=== PATIENT | male | born 1945 | race Caucasian/White ===

== ENCOUNTER 2018-09-30 12:21 | Inpatient (IN) ==
[2018-09-30] MEDS ORDERED: NS 1,000 ML IV ONE ×5 (13:01→21:14)
[2018-09-30] MEDS: NS 1,000 ML IV ONE ×2 (13:06)
[2018-09-30 13:08] LABS: BASO# 0.02 X1000 (0.0-0.2); BASO% 0.2 % (0.0-0.8); EOS# 0.07 X1000 (0.0-0.7); EOS% 0.6 % (0.0-10.0); HEMATOCRIT 29.9 % (42.0-52.0); HEMOGLOBIN 10.3 g/dL (14.0-18.0); IMM GRAN# 0.06 X1000 (0.0-0.04); IMM GRAN% 0.5 % (0.0-0.5); LYMPH# 1.61 X1000 (1.2-3.4); LYMPH% 14.4 % (20.5-51.1); MCH 35.9 PG (27-31); MCHC 34.4 g/dL (33-37); MCV 104.2 FL (81-99); MONO# 0.91 X1000 (0.11-0.59); MONO% 8.2 % (1.7-9.3); MPV 12.1 FL (7.4-10.4); NEUT# 8.49 X1000 (1.4-6.5); NEUT% 76.1 % (42.2-75.2); PLT 135 X1000 (130-400); RBC 2.87 XMIL (4.7-6.1); RDW 21.8 % (11.5-14.5); WBC 11.16 X1000 (4.8-10.8)
[2018-09-30] MEDS ORDERED: NS 1,000 ML ONE (13:14)
[2018-09-30 13:20] LABS: HEMOGLOBIN A1C 6.1 % (4.8-6.0)
[2018-09-30 13:46] LABS: ALBUMIN 3.1 g/dL (3.5-5.0); CALCIUM 8.6 mg/dL (8.8-10.2); CREATININE 4.4 mg/dL (0.7-1.2); POTASSIUM 3.3 mmol/L (3.5-5.1); TOTAL BILIRUBIN 0.5 mg/dL (0.20-1.00); TOTAL PROTEIN 6.3 g/dL (6.3-8.3)
[2018-09-30] MEDS: ZOSYN 2.25 GM in NS 50 ML IV SCH ×2 (14:00→20:00)
[2018-09-30] MEDS: NS 1,000 ML IV SCH ×3 (14:00→23:00)
[2018-09-30] MEDS ORDERED: TYLENOL PO PRN ×2 (14:01→21:15)
[2018-09-30] MEDS: ZYVOX 600 MG/D5W 600 MG/300 ML IVPB IV SCH (14:15)
--- NOTE | 2018-09-30 14:50 | Diag Imaging Result Doc PS360 ---
EXAM: CHEST-PORTABLE 09/30/2018 HISTORY: sepsis TECHNIQUE: Erect AP portable at 1406 COMMENT: Compared to 06/27/2018 the opacity previously present in the left base has resolved. There may be COPD. There are sternotomy wires and there is a Port-A-Cath on the right. IMPRESSION: No evidence of acute disease. Electronically signed by Zeeshan Croft 09/30/2018 2:48 PM
[2018-09-30] MEDS ORDERED: DOPAMINE 800 MG/D5W 800 MG/500 ML IV.SOLN IV SCH (15:15)
[2018-09-30] MEDS: DUONEB (A & A) INH SCH ×3 (15:30→22:35)
--- NOTE | 2018-09-30 15:49 | HISTORY AND PHYSICAL ---
PRIMARY CARE PHYSICIAN: Dr. Agapito Mtz. CHIEF COMPLAINT: Elevated blood sugar, low blood pressure and palpitations that began this morning. HISTORY OF PRESENTING ILLNESS: This is a 73-year-old male who presents to [facility] with complaints of having an elevated blood sugar, low blood pressure and palpitations that began this morning. It is noted that he is a stage IV colon cancer patient followed by Dr. Grissom and is currently receiving chemotherapy. He apparently had a chest, abdomen and pelvis CT done outpatient on 09/26/2018 that showed COPD, pulmonary scarring, and pneumonia in the right lower lobe, calcifying liver masses consistent with treated metastasis. No new liver masses, constipation with rectal stool impaction, and a stable abdominal aortic aneurysm. He was unaware of these results today when he presented. He had a blood pressure of 64/31 with pulse of 109. His white blood cell count is 11.16. His BUN is 184 with a creatinine of 4.4, and glucose of 401. He says he is not diabetic. We checked a hemoglobin A1c and it was 6.1. He in the emergency room has been given 2 L of normal saline boluses, and is now receiving a liter at 125 mL an hour. His blood pressure remains low at 93/42 so he will be admitted to the intensive care unit for further evaluation and treatment. PAST MEDICAL HISTORY: Diabetes, CHF, COPD, hypertension, hyperlipidemia, renal disease, colon cancer stage IV, and abdominal aortic aneurysm. PAST SURGICAL HISTORY: CABG. FAMILY HISTORY: Reviewed and noncontributory. SOCIAL HISTORY: He smokes about a pack of cigarettes a day. Denies any alcohol or illicit drug use. He lives with family. ALLERGIES: He has an allergy to acetaminophen. HOME MEDICATIONS: We will hold the following: ProAir 1 puff inhalation p.r.n., Lasix 40 mg p.o. b.i.d. glipizide 5 mg p.o. daily, Combivent Respimat inhaler q.6, Zaroxolyn 2.5 mg p.o. daily, metoprolol 25 mg p.o. b.i.d., oxycodone 30 mg p.o. t.i.d. p.r.n. We will continue the following Eliquis 2.5 mg p.o. b.i.d., Lanoxin 125 mcg p.o. daily, Cardizem 90 mg p.o. q.6h hours, folic acid 1 mg p.o. daily, Icar C 1 p.o. b.i.d., isosorbide 10 mg p.o. t.i.d., Lidoderm 1 topically daily, Centrum Silver p.o. daily, omeprazole 40 mg p.o. daily and MiraLAX 34 g p.o. b.i.d. LABORATORY DATA: White blood cell count of 11.16, hemoglobin 10.3, hematocrit 29.9, and platelets 135,000. Sodium 135, potassium 3.3, chloride 89, CO2 21, BUN of 184, creatinine 4.4, glucose 401, and hemoglobin A1c of 6.1. He has a portable chest x-ray pending. Blood cultures x2 pending. Plasma lactate pending, and a digit level pending. REVIEW OF SYSTEMS: He denied any fever. He has had some chills and body aches. Denied any blurred vision or dizziness. He has had an elevated blood sugar and low blood pressure and palpitations, but no chest pain. He has had a nonproductive cough and some mild shortness of breath. Denied any abdominal pain, constipation, diarrhea, burning or hurting with urination. PHYSICAL EXAMINATION: VITAL SIGNS: On arrival, he had a temperature of 97.3 degrees, pulse 109, respirations 18, and blood pressure 64/31. Currently, heart rate is down to 51, blood pressure up to 93/42. GENERAL: This is a 73-year-old male who is sitting up in the bed and appears thin, frail and pale. HEENT: Normocephalic, atraumatic. Normal ENT inspection. Oropharynx and nares are clear. EYES: Pupils are equal, round, reactive to light and accommodation. NECK: Normal inspection. Normal range of motion. LUNGS: Decreased breath sounds bilaterally. Equal lung expansion with chest wall movement noted. HEART: Regular rate and rhythm. No murmurs, rubs, or gallops. He was initially tachycardic when he came in, but that has improved with fluids. ABDOMEN: Soft, nontender, and nondistended. Bowel sounds are present x4 quadrants. MUSCULOSKELETAL: He has 3/5 strength x4 extremities. NEUROLOGICAL: The cranial nerves 2-12 are grossly intact. ASSESSMENT: 1. Sepsis. 2. A right lower lobe pneumonia. 3. Acute kidney injury. 4. Hyperglycemia. 5. Hypotension. PLAN: He will be admitted to the intensive care unit and placed on telemetry. O2 per protocol and incentive spirometry. Diabetic diet. Blood cultures x2 are pending. We will place him on normal saline at 125 mL an hour. He certainly may require a drip to bring his blood pressure up, but we will see how he does after this third bag of fluids. Place him on Zosyn 2.25 g IV q.6h and Zyvox 600 mg IV q.12, DuoNeb q.4 hours. Home medications as previously identified. We will place on pattern blood sugars with sliding scale insulin and further orders after being seen by attending. Dictated by LIZBET Robertson for Saulo Matt MD cc: LIZBET Robertson MD Dr. Joesph Randall
[2018-09-30] MEDS: DOPAMINE 800 MG/D5W 800 MG/250 ML IV.SOLN IV SCH (16:10)
[2018-09-30] MEDS: HUMALOG (PARKWAY) SUBQ SCH ×2 (18:33→20:04)
[2018-09-30] MEDS: PROTONIX IV SCH (18:35)
--- NOTE | 2018-09-30 19:06 | HISTORY AND PHYSICAL ---
HISTORY OF PRESENT ILLNESS: The patient is a heart failure patient, diabetes, chronic renal failure, presenting with hyperglycemia, low blood pressure, and palpitations. He has stage IV colon cancer. He is receiving chemo. In any case, the patient came in with multiple issues, but he is extremely dehydrated and hypotensive. PHYSICAL EXAMINATION: On exam, he is thin, cachectic, but his faculties are still there. He is very aware all of his situation. LABORATORY DATA: Unfortunately, his BUN and creatinine are 184 and 4.4. The last data we have was from May 2018. He was renal failure then with a BUN of 93 and a creatinine of 2.5. PROBLEM LIST: 1. On exam he is covered in ecchymoses. He is hypotensive, but he is not particularly symptomatic, believe it or not. There is question of pneumonia. His chest x-ray today is negative. He had a CT about 4 days ago that showed pneumonia. Unclear if he has in any case acute kidney injury, acute on chronic. We will continue hydration and blood pressure support. Avoid nephrotoxic drugs. 2. Reported pneumonia. He is empirically on antibiotics, but we will follow. 3. Digoxin toxicity. He is a bit bradycardic and hypotensive. I think I would like to consider giving him Digibind, but I will discuss the case with Cardiology. 4. Stage IV colon cancer. Aware of diagnosis. We will continue to monitor. 5. History of atrial fibrillation, now bradycardic. We will continue to monitor. May get Cardiology input when available. cc: Saulo Matt MD
[2018-09-30] MEDS: ICAR-C PO SCH (20:00)
[2018-09-30] MEDS: MIRALAX PO SCH (20:00)
[2018-09-30 20:09] LABS: HEMATOCRIT 32.7 % (42.0-52.0); HEMOGLOBIN 11.5 g/dL (14.0-18.0); MCH 36.4 PG (27-31); MCHC 35.2 g/dL (33-37); MCV 103.5 FL (81-99); MPV 12.1 FL (7.4-10.4); RBC 3.16 XMIL (4.7-6.1); RDW 21.7 % (11.5-14.5); WBC 14.06 X1000 (4.8-10.8)
[2018-09-30 20:25] LABS: BE -4.8 mmoll (-3.0-3.0); BLOOD TYPE ARTERIAL; HCO3-(ACT) 21.1 mmoll (20.0-26.0); O2(CT) 13.5 mL/dL (15.0-23.0); O2HB 92.6 % (95.0-99.0); PCO2(98.6) 32 mmHg (35-45); PO2(98.6) 84 mmHg (60-100); SAMPLE BLOOD; SAO2 97.6 % (95.0-100.0); THB 10.3 g/dL (11.5-17.4); pH(98.6) 7.39 (7.35-7.45)
[2018-09-30 20:26] LABS: CALCIUM 8.4 mg/dL (8.8-10.2); CREATININE 4.2 mg/dL (0.7-1.2); POTASSIUM 2.8 mmol/L (3.5-5.1)
[2018-09-30 20:26] LABS: ALLEN TEST YES; MODALITY CANNULA
[2018-09-30] MEDS ORDERED: ELIQUIS PO SCH (21:00)
[2018-09-30] MEDS ORDERED: POTASSIUM CHLORIDE 40 MEQ/SWI 40 MEQ/100 ML IVPB IV ONE (21:13)
[2018-09-30] MEDS ORDERED: LEVOPHED 8 MG in D5 1/2 NS 250 ML IV SCH (21:15)
[2018-09-30] MEDS: MORPHINE IV PRN (21:45)
[2018-09-30 21:55] LABS: UR CREAT RANDOM 52.4 mg/dL (14-26)
[2018-09-30 22:02] LABS: BILIRUBIN URINE NEGATIVE (NEGATIVE); BLOOD URINE NEGATIVE (NEGATIVE); CLARITY SL. CLOUDY (CLEAR); COLOR YELLOW; GLUCOSE URINE NEGATIVE (NEGATIVE); KETONE URINE NEGATIVE (NEGATIVE); LEUKOCYTES URINE 1+ (NEGATIVE); NITRITE URINE NEGATIVE (NEGATIVE); PH URINE 6.5; PROTEIN URINE 1+(30 mg/dL) mg/dL (NEGATIVE); SP GRAVITY URINE 1.015; URINE BACTERIA 1+ /HFP; URINE CAST NONE SEEN /LPF; URINE CRYSTAL NONE SEEN /HPF; URINE EPITHELIAL CELLS <10 /HPF (<10); URINE YEAST NONE SEEN /HPF; UROBILINOGEN URINE NORMAL
[2018-09-30 22:03] LABS: URINE SOURCE CATH
[2018-10-01] MEDS: ZOSYN 2.25 GM in NS 50 ML IV SCH ×4 (02:31→20:01)
[2018-10-01] MEDS: ZYVOX 600 MG/D5W 600 MG/300 ML IVPB IV SCH ×2 (02:31→13:56)
[2018-10-01] MEDS: DOPAMINE 800 MG/D5W 800 MG/250 ML IV.SOLN IV SCH (02:32)
[2018-10-01] MEDS: DUONEB (A & A) INH SCH ×6 (03:05→22:44)
[2018-10-01] MEDS ORDERED: PRILOSEC PO SCH (06:00)
[2018-10-01] MEDS: HUMALOG (PARKWAY) SUBQ SCH ×4 (07:13→21:01)
[2018-10-01 07:24] LABS: BASO# 0.02 X1000 (0.0-0.2); BASO% 0.1 % (0.0-0.8); EOS# 0.01 X1000 (0.0-0.7); EOS% 0.1 % (0.0-10.0); HEMATOCRIT 32.2 % (42.0-52.0); HEMOGLOBIN 11.3 g/dL (14.0-18.0); IMM GRAN# 0.07 X1000 (0.0-0.04); IMM GRAN% 0.4 % (0.0-0.5); LYMPH# 0.84 X1000 (1.2-3.4); MCH 36.7 PG (27-31); MCHC 35.1 g/dL (33-37); MCV 104.5 FL (81-99); MONO# 1.53 X1000 (0.11-0.59); MONO% 9.2 % (1.7-9.3); MPV 12.3 FL (7.4-10.4); NEUT# 14.21 X1000 (1.4-6.5); NEUT% 85.2 % (42.2-75.2); PLT 136 X1000 (130-400); RBC 3.08 XMIL (4.7-6.1); RDW 21.5 % (11.5-14.5); WBC 16.68 X1000 (4.8-10.8)
[2018-10-01 07:32] LABS: CALCIUM 8.5 mg/dL (8.8-10.2); CREATININE 3.9 mg/dL (0.7-1.2)
--- NOTE | 2018-10-01 08:21 | Diag Imaging Result Doc PS360 ---
EXAM: US RENAL 2 (RETROPER) COMPLETE HISTORY: crista TECHNIQUE: Renal ultrasound COMPARISON: None. FINDINGS: The right kidney measures 10.2 x 4.3 x 5.2 cm. Normal renal echotexture and cortical thickness. There is a 2.1 cm cyst in the upper pole. No stone or hydronephrosis. The left kidney measures 9.9 x 3.9 x 4.2 cm. Normal echotexture and cortical thickness. No renal stone or hydronephrosis. There is a 2.1 cm lower pole cyst. The urinary bladder is not distended. There is a Peck catheter IMPRESSION: Small renal cysts. Electronically signed by Rudy Agrawal 10/01/2018 8:18 AM
[2018-10-01] MEDS: FOLIC ACID PO SCH (08:34)
[2018-10-01] MEDS: ICAR-C PO SCH ×2 (08:34→21:01)
[2018-10-01] MEDS: THERA M PLUS PO SCH (08:34)
[2018-10-01] MEDS: LIDODERM TOP SCH (08:34)
[2018-10-01] MEDS: MIRALAX PO SCH ×2 (08:35→21:01)
--- NOTE | 2018-10-01 09:53 | EKG Report ---
Test Performed on : 09/30/2018 12:42:09 PM Test Reason : ER Blood Pressure : / mmHG Vent. Rate : 065 BPM Atrial Rate : 084 BPM P-R Int : 000 ms QRS Dur : 122 ms QT Int : 582 ms P-R-T Axes : 000 080 -42 degrees QTc Int : 605 ms Wide QRS rhythm. with frequent and consecutive premature ventricular complexes. Right bundle branch block Marked ST abnormality, possible lateral subendocardial injury Abnormal ECG When compared with ECG of 27-JUN-2018 18:37, Wide QRS rhythm. has replaced Atrial fibrillation. Unconfirmed Result
[2018-10-01 10:16] LABS: LYMPHS 4 % (21-51); MONO 8 % (1-9); SEGS 88 % (42-75)
[2018-10-01] MEDS ORDERED: BLISTEX MEDICATED BERRY LIP BALM TOP PRN (10:38)
[2018-10-01] MEDS: NS 1,000 ML IV SCH (12:00)
--- NOTE | 2018-10-01 12:41 | NEPHROLOGY CONSULTATION ---
DATE: 10/01/2018 REASON FOR ADMISSION: Elevated blood sugars, low blood pressure with heart palpitations, and dehydration. REASON FOR CONSULT: Acute kidney injury. HISTORY OF PRESENT ILLNESS: Mr. Bautista is a 73-year-old white male, who we had the privilege of meeting in May 2018 for increased work of breathing, dyspnea, edema, and elevated creatinine. At that time, it was noted that his creatinine baseline was at 2. In the emergency room, creatinine continued to fluctuate from 1.7 to about 3. The patient was in a negative fluid balance. He had presented with pleural effusions with underlying atelectasis or infiltrates. He had also had onset of atrial fibrillation with rapid ventricular response. He is known to have stage IV colon cancer with metastasis followed by Dr. Grissom. The patient apparently had chest discomfort associated with this. His last outpatient treatment was on 2018 for chemotherapy. He states that he is due for chemotherapy today. CT done on outpatient on 09/26/2018, also showed COPD, pulmonary scarring, pneumonia, right lower lobe, calcifying liver masses consistent with treated metastasis. There was some constipation with rectal stool impaction noted along with abdominal aortic aneurysm. His blood pressure upon arrival was low 64/30s, pulse of 109. He was started on normal saline fluid boluses and dopamine. He was presented to the ICU, where he remained for follow up and evaluation. He states that he is weak today. He has no complaints of pain or increased work. 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 PAST SURGICAL HISTORY: He has had a CABG. He also has a port placement. FAMILY HISTORY: Noncontributory towards renal failure. SOCIAL HISTORY: He lives with his family. He smokes approximately a pack a day. Denies any alcohol or illicit drug use. ALLERGIES: Listed as acetaminophen. HOME MEDICATIONS: ProAir 1 puff, Lasix 40, glipizide 5, Combivent q.6, Zaroxolyn 2.5, metoprolol 25, oxycodone 30, Eliquis 2.5 b.i.d., Lanoxin 125 mcg, Cardizem 90, folic acid, Icar C, isosorbide 10, Centrum Silver, omeprazole 40, and MiraLAX 34 g b.i.d. REVIEW OF SYSTEMS: Times 10 with pertinent positives listed above in the HPI. PHYSICAL EXAMINATION: Vital signs: temperature 97.7, BP: 155/89, HR: 90, RR: 16. I&O: 6787 in, 1145 out to jacobsen catheter. General: This is a 73-year-old male. He appears chronically ill, though in no acute distress. He is awake and alert. HEENT: Normocephalic, atraumatic. Conjunctiva is pale. Mucous membranes are dry. Neck: Supple. Trachea midline. He has negative JVD. Cardiovascular: Irregularly, irregular rate and rhythm. Tachycardic. He is on O2. Abdomen: Soft, nontender. Positive bowel sounds. Genitourinary: Not inspected. Jacobsen catheter is in place. Neurological: He is awake and alert to person and to place. ASSESSMENT AND PLAN: 1. Acute kidney injury. More than likely this is acute tubular necrosis secondary to sepsis and volume depletion. The patient has a FENa score of 1.83%. He is very dehydrated, BUN of 169 on admission with a creatinine of 4.2. This has improved with improvement to his blood pressure and fluid volume resuscitation. His BUN is down to 156 with a creatinine of 3.9. He has had adequate urine out of 1145 in the last 24 hours. He has approximately 500 mL in his Jacobsen catheter at this time. His renal ultrasound was nonspecific, though it did have small renal cysts present. No hydronephrosis or masses present. No indication for dialysis intervention at this time. 2. Sepsis. The patient is currently on Zosyn and Zyvox. He remains on dopamine for support. Blood pressure remains fairly stable. Normal saline remains at 125. 3. Electrolytes and acid-base balance. These are fairly stable. 4. Anemia. This is acceptable at 11. 5. Pneumonia. Again, patient is on renal dosed antibiotics. I would like to thank you for allowing us to follow with this patient. Dictated by LIZBET Jay for Felix Colvin MD Data reviewed, discussed with Becki Lux on 10/01/18. I agree with the above assessment and plan of care. cc: LIZBET Jay MD Gregory S. Cheatham, MD MTDD
--- NOTE | 2018-10-01 13:23 | CARDIOLOGY CONSULTATION ---
DATE: 10/01/2018 REASON FOR CONSULTATION: Cardiology was consulted for bradycardia, hypotension. Patient is admitted with pneumonia, sepsis, and acute tubular necrosis. HISTORY OF PRESENT ILLNESS: A 73-year-old gentleman, who presented to the hospital with elevated blood sugars. Was noted to having cough with mucoid to mucopurulent expectoration and not feeling well. He denies chest pain. He has stage IV lung cancer, undergoing chemotherapy. CT scan, 09/26/2018, showed COPD, pulmonary scarring, and pneumonia, right lower lobe, calcified liver masses consistent with treated METS. He came to the emergency room, was noted to have a hypotension with a blood pressure of 64/31. Pulse of 100. His BUN was 184 with a creatinine of 4.4. Glucose of 401. He has been started on dopamine, and he was also noted subsequently to be bradycardic with atrial fibrillation. He was recently admitted with atrial fibrillation. Was on multiple medications as well. REVIEW OF SYSTEMS: A 14-point review of system was done. Respiratory System: As above. Cardiovascular System: No chest pain. system: There is no dysuria or hematuria. Central nervous system: No focal weakness to suggest a CVA or TIA. PAST MEDICAL HISTORY: 1. Coronary artery disease, status post coronary artery bypass grafting with CELAYA to left anterior descending artery, SVG to diagonal, SVG to PLS. 2. Moderate mitral regurgitation. 3. Tricuspid regurgitation. Pulmonary arterial hypertension, 45 to 50. 4. Hypertension. 5. Hyperlipidemia. 6. Chronic renal insufficiency. 7. Atrial fibrillation. 8. He had a followup PET scan in [place] on 11/15/2017. There was no evidence of ischemia, ejection fraction 55%. Echocardiogram revealed normal left ventricular systolic function in 2018. 9. Back surgery. 10. Bladder surgery. 11. Craniotomy for a benign tumor. 12. Cataract extraction. 13. Inguinal hernia surgery. 14. Patient is a . Lives with his grandson. Has 1 daughter, 3 grandchildren. FAMILY HISTORY: Noncontributory. HOME MEDICATIONS: ProAir, Lasix 40 mg a day, glipizide 5, Combivent inhaler, Zaroxolyn 2.5, metoprolol 25 b.i.d., Cardizem 90 mg p.o. q.6 hours hourly, Lanoxin 125 mcg per day, Icar C, isosorbide 10, Lidoderm, Centrum Silver, omeprazole. Currently, he is receiving dopamine drip for pressure support, Zyvox antibiotics, insulin, and his home medications have been held. PHYSICAL EXAMINATION: Vital Signs: Blood pressure was 150/80. Neck: Jugular venous pressure was normal. Heart: First and second heart sounds were heard. There was systolic murmur. Respiratory: Examination revealed scattered crepitations. Abdomen: Was soft and nontender. There was no guarding or rigidity. Bowel sounds were heard. Central nervous system: Alert, was moving all 4 extremities. Extremities: Examination of extremities revealed no pedal edema. HEENT: Ecchymosis was noted. ASSESSMENT AND PLAN: 1. Mr. Bonifacio Bautista is a 73-year-old gentleman, who has metastatic colon cancer, coronary artery disease status post coronary artery bypass grafting, hypertension, chronic renal insufficiency, chronic atrial fibrillation, diabetes, hypertension, is admitted with symptoms as above. 2. Has pneumonia. 3. Was noted to be hypotensive, started on a dopamine drip. 4. He had episodes of bradycardia. His digoxin level was 3. He has been on a combination of atenolol as well as Cardizem. RECOMMENDATIONS: 1. He is symptomatically improved. We would recommend tapering and stopping the dopamine drip #2. 2. As far as digitoxicity is concerned, his heart rate is better, and if he has further episodes of bradycardia, would recommend Digibind. Currently, I think he is stable, and we will not give him any digoxin anymore. 3. As far as atrial fibrillation is concerned, once he is off his dopamine and would recommend restarting his beta-blockers, given his coronary artery disease and atrial fibrillation, as well. 4. He has metastatic colon cancer and is under treatment. 5. He has gastroesophageal reflux disease with status post dilatation during his hospitalization in 2018. 6. He has acute renal failure, acute on chronic, probably secondary to his hypotension. Nephrology has been consulted. His creatinine was 4.2, down to 3.9. In May, his baseline creatinine was elevated from 1.9 to 2.5. 7. As far as hypertension is concerned, currently he is off all his medications. Once his blood pressure is controlled, we will try to control atrial fibrillation and blood pressure with beta-blockers. Thank you for the consult. cc: MD Jacques Ornelas MD
[2018-10-01] MEDS: PROTONIX IV SCH (16:11)
[2018-10-01] MEDS: SODIUM CHLORIDE 0.9% INJ SCH (16:11)
[2018-10-01] MEDS: MORPHINE IV PRN (21:37)
--- NOTE | 2018-10-01 23:56 | PROGRESS NOTE ---
DATE: 10/01/2018 SUBJECTIVE: The patient himself notes that he is starting to feel better, starting to have less palpitations. He is breathing easier. PHYSICAL EXAMINATION: Vital Signs: Temperature 97.6, pulse 90, respiratory rate 15, blood pressure 130/56. General: Patient is awake, currently in minimal respiratory distress. Pleasant to talk with. HEENT: Normocephalic. Neck: Supple. Cardiovascular: Regular rate. Chest: Clear, although decreased breath sounds bilaterally. Abdomen: Soft, nondistended. No masses. Extremities: Moves all extremities. ASSESSMENT: 1. Sepsis. 2. Right lower lobe pneumonia. 3. Hyperglycemia. 4. Hypotension, on dopamine. 5. Leukocytosis. 6. Hypokalemia, resolved. 7. [id number] renal failure. Continues to improve. PLAN: Will continue patient in the hospital. Will continue antibiotics. Will wean dopamine as tolerated. We will continue to hold his rate-controlling agents due to his hypotension. Further orders as needed. cc: Jacques Lundy MD
[2018-10-02] MEDS: NS 1,000 ML IV SCH (00:06)
[2018-10-02] MEDS: ZYVOX 600 MG/D5W 600 MG/300 ML IVPB IV SCH ×2 (01:39→13:44)
[2018-10-02] MEDS: ZOSYN 2.25 GM in NS 50 ML IV SCH ×4 (01:39→20:32)
[2018-10-02] MEDS: MORPHINE IV PRN ×4 (01:39→20:32)
[2018-10-02] MEDS: DUONEB (A & A) INH SCH ×6 (03:17→23:05)
[2018-10-02] MEDS: HUMALOG (PARKWAY) SUBQ SCH ×4 (06:45→20:33)
--- NOTE | 2018-10-02 07:48 | NEPHROLOGY PROGRESS NOTE ---
DATE: 10/02/2018 SUBJECTIVE: He states, "I am not worth a crap." Mostly, he is complaining of malaise and fatigue. He states he has episodes of increased work of breathing but currently he is not short of breath at all. He has not noticed any swelling. He declined labs this morning. OBJECTIVE: Vital Signs: Blood pressure 127/70, heart rate 103, respirations 20, afebrile. General: No acute distress. Skin: Warm and dry. HEENT: Conjunctivae are pink. Neck: Neck veins are not distended. Heart: Regular. Lungs: Equal. No crackles. Abdomen: Soft, nontender. Bowel sounds are present. Extremities: Have no edema, clubbing, or cyanosis. IMPRESSION AND PLAN: Acute kidney injury overlying chronic kidney disease. Labs are improving and urine output is improving. We do not have any data today. I think that is okay and we can just check his labs tomorrow. I will check a chest x-ray. If pulmonary edema is developing, then we will decrease his intravenous fluids but, otherwise, we will continue current orders without change. cc: MD Jacques Vizcarra MD
[2018-10-02] MEDS: THERA M PLUS PO SCH (09:21)
[2018-10-02] MEDS: MIRALAX PO SCH ×2 (09:21→20:33)
[2018-10-02] MEDS: ICAR-C PO SCH ×2 (09:21→20:32)
[2018-10-02] MEDS: LIDODERM TOP SCH (09:21)
[2018-10-02] MEDS: FOLIC ACID PO SCH (09:21)
--- NOTE | 2018-10-02 13:46 | Diag Imaging Result Doc PS360 ---
EXAM: CHEST-PORTABLE HISTORY: assess for pulmonary edema TECHNIQUE: Chest single view COMPARISON: 09/30/2018 FINDINGS: The lungs are well expanded. The heart is not enlarged. Sternal wires are present. There are surgical clips in the left hilum. No change in the right jugular portacatheter. Questionable trace pulmonary edema. There are no infiltrates. Development of a small left pleural effusion with basilar atelectasis. IMPRESSION: Questionable minimal vascular distention. Interval development of a small left pleural effusion with basilar atelectasis. Electronically signed by Rudy Agrawal 10/02/2018 1:43 PM
[2018-10-02] MEDS ORDERED: NS 1,000 ML IV SCH (19:00)
[2018-10-02] MEDS: PROTONIX IV SCH (20:32)
[2018-10-02] MEDS: SODIUM CHLORIDE 0.9% INJ SCH (20:32)
--- NOTE | 2018-10-03 00:26 | PROGRESS NOTE ---
DATE: 10/02/2018 SUBJECTIVE: The patient himself has no new complaints. States that he wants to move out to the floor. He wants to start ambulating. PHYSICAL EXAMINATION: Temperature 97, pulse 103, respiratory 20, BP 127/70. He currently is a little over 8 L positive. HEENT: Normocephalic. Neck: Supple. CARDIOVASCULAR: Regular rate. Chest: Decreased. Appears to have occasional crackles, bilateral bases. Abdomen: Soft. Extremities: Moves all extremities. ASSESSMENT: 1. Mild pleural effusion noted on chest x-ray this morning. We will stop his Lasix. 2. Leukocytosis. 3. Anemia. 4. Hypokalemia, resolved. 5. Acute on chronic renal disease. Appreciate Nephrology's input. 6. Hyperglycemia, improved. 7. Hypotension, improved. He is off dopamine. PLAN: We will continue antibiotics. Since he is off dopamine, blood pressures are stable. He is a little over 8 L positive. Appears to have decreased vascular congestion on chest x-ray. We will stop his IV fluids for now. If he has no difficulties, we will start back tonight at a lower dose at 75 an hour for 1 L and then re-evaluate. cc: Jacques Lundy MD
[2018-10-03] MEDS: MORPHINE IV PRN ×5 (00:31→22:17)
[2018-10-03] MEDS: ZYVOX 600 MG/D5W 600 MG/300 ML IVPB IV SCH ×2 (02:22→14:13)
[2018-10-03] MEDS: ZOSYN 2.25 GM in NS 50 ML IV SCH ×4 (02:22→21:01)
[2018-10-03] MEDS: DUONEB (A & A) INH SCH ×6 (03:37→23:58)
[2018-10-03] MEDS: HUMALOG (PARKWAY) SUBQ SCH ×4 (06:22→21:09)
[2018-10-03 07:00] LABS: HEMOGLOBIN 8.8 g/dL (14.0-18.0); MCH 35.6 PG (27-31); MCHC 33.8 g/dL (33-37); MCV 105.3 FL (81-99); MPV 12.4 FL (7.4-10.4); RBC 2.47 XMIL (4.7-6.1); RDW 22.6 % (11.5-14.5); WBC 8.22 X1000 (4.8-10.8)
[2018-10-03 07:24] LABS: ALBUMIN 2.7 g/dL (3.5-5.0); CALCIUM 8.1 mg/dL (8.8-10.2); CREATININE 2.8 mg/dL (0.7-1.2); MAGNESIUM 1.9 mg/dL (1.5-2.7); POTASSIUM 2.9 mmol/L (3.5-5.1); TOTAL BILIRUBIN 0.5 mg/dL (0.20-1.00); TOTAL PROTEIN 4.8 g/dL (6.3-8.3)
[2018-10-03 07:25] LABS: PHOSPHORUS 3.8 mg/dL (2.7-4.5)
[2018-10-03] MEDS ORDERED: ZOFRAN IV PRN (09:13)
--- NOTE | 2018-10-03 09:39 | Diag Imaging Result Doc PS360 ---
EXAM: CHEST-2 VIEWS HISTORY: hypoxia TECHNIQUE: PA and Lateral chest x-ray COMPARISON: 10/02/2018 FINDINGS: Stable cardiomegaly. Right portacatheter and median sternotomy wires are again noted. Slight decrease in left pleural effusion and left basilar airspace disease when compared with yesterday's exam. Right lung is clear. IMPRESSION: Slight decrease in left pleural effusion and left basilar infiltrate. Electronically signed by Nickie Carmona 10/03/2018 9:37 AM
[2018-10-03] MEDS ORDERED: ZOFRAN ONE (09:41)
[2018-10-03] MEDS: MYCOSTATIN SUSP PO SCH ×4 (09:45→21:36)
[2018-10-03] MEDS: LIDODERM TOP SCH (09:45)
[2018-10-03] MEDS: ICAR-C PO SCH ×2 (09:46→21:36)
[2018-10-03] MEDS: MIRALAX PO SCH ×2 (09:46→21:35)
[2018-10-03] MEDS: FOLIC ACID PO SCH (09:46)
[2018-10-03] MEDS: THERA M PLUS PO SCH (09:46)
--- NOTE | 2018-10-03 12:48 | PROVIDER DOCUMENTATION ---
This chart was entered by Gloria Contreras Scribe, acting as scribe for Jan Conrad MD. HPI-General Adult - General Chief Complaint: High Blood Sugar Stated Complaint: HIGH BS / CHEMO PT Time Seen by Provider: 09/30/18 12:26 Source: patient Allergies/Adverse Reactions: Patient Allergies Allergy/AdvReac Type Severity Reaction Status Date / Time acetaminophen Allergy ITCHING Verified 09/30/18 12:30 Home Medications: Home Medication List Medication Instructions Recorded Confirmed Last Taken Type Omeprazole 40 mg PO DAILY@0600 07/16/17 09/30/18 09/29/18 History Ipratropium/Albuterol INH 1 puff INH RTQ6H #1 inhaler 07/19/17 09/30/18 Rx [Combivent Respimat Inhaler] Albuterol Sulfate [Proair Hfa] 1 puff IN PRN PRN 05/08/18 09/30/18 09/29/18 History Glipizide 5 mg PO DAILY 05/08/18 09/30/18 09/29/18 History Apixaban [Eliquis] 2.5 mg PO BID #60 tab 06/20/18 09/30/18 09/29/18 Rx Digoxin [Lanoxin] 125 microgm PO DAILY #30 tab 06/20/18 09/30/18 09/29/18 Rx Diltiazem [Cardizem] 90 mg PO Q6H #120 tab 06/20/18 09/30/18 09/29/18 Rx Folic Acid 1 mg PO DAILY #30 tab 06/20/18 09/30/18 09/29/18 Rx Furosemide [Lasix] 40 mg PO BID #60 tab 06/20/18 09/30/18 09/29/18 Rx Furosemide [Lasix] 40 mg PO BID #60 tab 06/20/18 09/30/18 09/29/18 Rx Iron Carbonyl/Ascorbic Acid 1 ea PO BID #30 tab 06/20/18 09/30/18 09/29/18 Rx [Icar-C] Isosorbide Dinitrate [Isordil] 10 mg PO TID #90 tab 06/20/18 09/30/18 09/29/18 Rx Lidocaine 5% Patch [Lidoderm] 1 ea TOP DAILY #20 patch 06/20/18 09/30/18 Rx Metolazone [Zaroxolyn] 2.5 mg PO DAILY #30 tab 06/20/18 09/30/18 09/29/18 Rx Metoprolol [Lopressor] 25 mg PO BID #60 tab 06/20/18 09/30/18 09/29/18 Rx Multivitamins/Minerals [Centrum 1 ea PO DAILY #30 tab 06/20/18 09/30/18 Rx Silver] Oxycodone HCl 30 mg PO TID PRN #60 tab 06/20/18 09/30/18 09/29/18 Rx Polyethylene Glycol 3350 [Miralax] 34 gm PO BID #30 powder, packet 06/20/1811/1309/29/18 Rx - History of Present Illness -Gen Adult Nature of Presenting Problems: 73yom with hx of stage 4 colon cancer/ chemotherapy patient, diabetes, CHF, COPD , HTN, hyperlipidemia, renal disease presents with elevated blood sugar, low blood pressure, and palpitations since this morning. He reports he takes Lasix. He denies fever, chills, nausea, vomiting, diarrhea, cp, and sob. Location of Pain/Injury: reports: none Pain Radiation: reports: no radiation Quality of Pain: reports: none Severity: reports: mild Onset/Duration: reports: this morning Timing: reports: still present, constant Context/Activities at Onset: reports: none Modifying Factors: improves with: nothing Associated Symptoms: reports: other (elevated blood sugar, low blood pressure, and palpitations). denies: chest pain, fever/chills, nausea, shortness of breath, vomiting Similar Symptoms Previously?: No Recently seen or treated by another doctor?: No Review of Systems - Adult - REVIEW OF SYSTEMS - ADULT Constitutional: denies: chills, fever Eyes: denies: discharge, dry eyes Ears, Nose, Mouth & Throat: denies: ear discharge, ear pain Cardiovascular: reports: palpitations, other (low blood pressure). denies: chest pain Respiratory: reports: no symptoms reported Gastrointestinal: denies: abdominal pain, diarrhea, nausea, vomiting Genitourinary: denies: dysuria, hematuria Musculoskeletal: denies: back pain, neck pain Integumentary: reports: no symptoms reported Neurological: denies: dizziness/vertigo, headache/migraines Psychiatric: reports: no symptoms reported Endocrine: reports: other (high blood sugar). denies: excessive sweating Hematologic/Lymphatic: reports: no symptoms reported Allergic/Immunologic: reports: no symptoms reported All Other Systems: Reviewed and Negative Past History - Adult - PAST MEDICAL HISTORY-ADULT Review of Records: reports: Old Records Reviewed, Nursing Assessment Review, Medications Reviewed Cardiovascular: reports: HTN, hyperlipidemia Respiratory: reports: COPD Genitourinary: reports: other (renal disease) Endocrine/Immune: reports: Diabetes Additional History: colon cancer - PRIOR SURGERIES/PROCEDURES Surgical/Procedure History: reports: CABG - IMMUNIZATION STATUS Childhood Immunizations: See Nurse Assessment Flu Vaccine: See Nurse Assessment - FAMILY HISTORY Family History: reviewed, not pertinent - SOCIAL HISTORY Smoking: cigarettes, less than 1 pack/day Substance Use: denies Living Situation: family Physical Exam-General - PHYSICAL EXAM-ADULT Initial Vital Signs Reviewed: Yes - CONSTITUTIONAL General Appearance: alert, thin, other (pt is ill-appearing) - EYES Eyes: PERRL/EOMI, pink conjunctivae - NECK Neck: non-tender, supple - RESPIRATORY Respiratory: decreased breath sounds. negative: crackles - CARDIOVASCULAR Cardiovascular: no murmur, tachycardia - GASTROINTESTINAL (ABDOMEN) Abdominal Exam: non tender, soft - MUSCULOSKELETAL Extremity: non-tender, no pedal edema - SKIN Integumentary: normal color, warm/dry - NEUROLOGIC Neurologic: grossly normal, no motor/sensory deficits - PSYCHIATRIC Psych/Mental Status: normal mood/affect, oriented x 3 Progress - PLAN OF CARE/RESULTS Progress/Plan/Lab Results: Vital Signs - 8 hr 09/30/18 12:25 09/30/18 13:24 Temperature 97.3 F L Pulse Rate 109 H 51 L Respiratory Rate 18 20 Blood Pressure 64/31 93/42 O2 Sat by Pulse Oximetry 98 99 Laboratory Results - last 24 hr 09/30/18 09/30/18 09/30/18 12:55 12:55 12:55 WBC 11.16 H RBC 2.87 L Hgb 10.3 L Hct 29.9 L MCV 104.2 H MCH 35.9 H MCHC 34.4 RDW Std Deviation 21.8 H Plt Count 135 MPV 12.1 H Immature Gran % (Auto) 0.5 Neut % (Auto) 76.1 H Lymph % (Auto) 14.4 L [place] % (Auto) 8.2 Eos % (Auto) 0.6 Baso % (Auto) 0.2 Immature Gran # (Auto) 0.06 H Neut # (Auto) 8.49 H Lymph # (Auto) 1.61 [place] # (Auto) 0.91 H Eos # (Auto) 0.07 Baso # (Auto) 0.02 Sodium 135 L Potassium 3.3 L Chloride 89 L Carbon Dioxide 21 L Anion Gap 25 BUN 184 H Creatinine 4.4 H Estimated GFR/1.73 m2 13 BUN/Creatinine Ratio 42 Glucose 401 H* POC Glucose Estimat Average Glucose 128 Hemoglobin A1c 6.1 H Calculated Osmolality 348 Calcium 8.6 L Total Bilirubin 0.50 AST 17 ALT 9 L Alkaline Phosphatase 98 Total Protein 6.3 Albumin 3.1 L Globulin 3.0 Albumin/Globulin Ratio 1.0 09/30/18 13:13 WBC RBC Hgb Hct MCV MCH MCHC RDW Std Deviation Plt Count MPV Immature Gran % (Auto) Neut % (Auto) Lymph % (Auto) [place] % (Auto) Eos % (Auto) Baso % (Auto) Immature Gran # (Auto) Neut # (Auto) Lymph # (Auto) [place] # (Auto) Eos # (Auto) Baso # (Auto) Sodium Potassium Chloride Carbon Dioxide Anion Gap BUN Creatinine Estimated GFR/1.73 m2 BUN/Creatinine Ratio Glucose POC Glucose 450 H D Estimat Average Glucose Hemoglobin A1c Calculated Osmolality Calcium Total Bilirubin AST ALT Alkaline Phosphatase Total Protein Albumin Globulin Albumin/Globulin Ratio Orders Category Date Time Status A1C HGB W EST AVG GLUCOSE [CHEM] Stat Lab 09/30/18 12:55 Completed CBC WITH ELECTRONIC DIFF [HEME] Stat Lab 09/30/18 12:55 Completed COMPREHENSIVE METABOLIC PANEL [CHEM] Stat Lab 09/30/18 12:55 Completed 0.9% Sodium Chloride Inj [Ns] 1,000 ml Med 09/30/18 13:14 Discontinued .ROUTE As Directed 0.9% Sodium Chloride Inj [Ns] 1,000 ml Med 09/30/18 13:06 Discontinued IV 250 mls/hr 0.9% Sodium Chloride Inj [Ns] 1,000 ml Med 09/30/18 13:01 Discontinued IV 999 mls/hr Result Diagrams: 10/03/18 05:15 10/03/18 05:15 - REASSESSMENT Reassessment #1 Time Reassessed: 13:20 Status: unchanged Reassessment #2 Time Reassessed: 13:48 Status: unchanged - EKG 1 Time of EKG reading by physician:: 12:42 EKG Read and Signed by:: Jan Conrad EKG Interpretation (*Must complete 3 of following elements*): Abnormal Rhythm: Wide QRS rhythm with frequent and consecutive premature ventricular complex QRS: RBB ST Wave: non-specific ST changes - XRAY 1 XRAY Study: Chest Impression: Abnormal (COMMENT: Compared to 06/27/2018 the opacity previously present in the left base has resolved. There may be COPD. There are sternotomy wires and there is a Port-A-Cath on the right. IMPRESSION: No evidence of acute disease.) - CONSULTS/PCP/HOSPITALIST Notification #1 *Consult/PCP/Hospitalist*: Dr. Matt Time Discussed: 13:54 Consult Disposition: Will see in ED Departure - Departure Date of Disposition Decision: 09/30/18 Time of Disposition Decision: 12:36 DIAGNOSIS: Hyperglycemia Disposition: ADMITTED INPATIENT 09 Certified Medical Emergency: Emergent Condition: Stable - Critical Care Note This patient required my direct & personal management of CC.: No Attestation - Physician/ LAMAR Attestation Patient care was provided by Advanced Practice Provider:: No The physician spent face to face time with patient:: Yes Advanced Practice Provider documentation review:: Supervising physician onsite and consulted in the evaluation and care of this patient. The physician did have a face to face encounter with the patient. This chart was documented by the indicated scribe, (Gloria Contreras, Mari) and accurately reflects the services I performed and decisions made by me, Jan Conrad MD, as attested by the provider's signature.
[2018-10-03] MEDS: POTASSIUM CHLORIDE 20 MEQ/SWI 20 MEQ/100 ML IVPB IV SCH ×2 (13:08→15:53)
[2018-10-03] MEDS ORDERED: KLOR-CON PO ONE (16:47)
[2018-10-03] MEDS: PROTONIX IV SCH (17:50)
[2018-10-03] MEDS: KLOR-CON PO SCH ×2 (21:36→21:44)
--- NOTE | 2018-10-03 23:10 | NEPHROLOGY PROGRESS NOTE ---
DATE: 10/03/2018 SUBJECTIVE: He states he is feeling better today. No new complaints. He does complain that he has a dry mouth, and thinks it is caused by thrush. OBJECTIVE: Vital Signs: Blood pressure 127/63, heart rate 98, respirations 19, afebrile. Intake 6.8 L. Output 900 mL. General: No acute distress. Skin: Warm and dry. Conjunctivae are pink. Oropharynx is dry. No obvious thrush. Neck: Neck veins are not distended. Heart: Regular, with an S4. Lungs: Equal. No crackles. Abdomen: Soft, nontender. Bowel sounds present. Extremities: No edema, clubbing, or cyanosis. IMPRESSION: Acute kidney injury. BUN and creatinine continue to improve. Volume status appears acceptable on exam, and chest x-ray is clear. He does have significant hypokalemia. This has been treated by the primary team. cc: MD Jacques Vizcarra MD
[2018-10-04] MEDS ORDERED: NS 250 ML ONE (01:17)
--- NOTE | 2018-10-04 01:18 | PROGRESS NOTE ---
DATE: 10/03/2018 SUBJECTIVE: Patient has no complaints. States overall he is feeling okay. PHYSICAL EXAMINATION: Vital Signs: Temperature 98.3 degrees, pulse 86, respiratory 20, BP 146/60. General: Patient is in no current respiratory distress. HEENT: Normocephalic. Neck: Supple. CARDIOVASCULAR: Regular rate. Chest: Clear, nonlabored. No crackles currently. Abdomen: Soft. Extremities: Moves all extremities. ASSESSMENT: 1. Acute on chronic renal failure. Creatinine continues to slowly improve, currently down to 2.8. He has better urine output. Chest x-ray yesterday showed mild edema. We will continue to follow. We did decrease his IV fluids yesterday and have increased back to 75 an hour x1 L. 2. Right lower lobe pneumonia. Continue Zosyn, Zyvox. 3. Hypotension has improved. PLAN: Continue patient in the hospital. Transition out of the ICU to the floor when bed is available. cc: Jacques Lundy MD
[2018-10-04] MEDS: ZOSYN 2.25 GM in NS 50 ML IV SCH ×4 (01:44→19:39)
[2018-10-04] MEDS: ZYVOX 600 MG/D5W 600 MG/300 ML IVPB IV SCH ×2 (02:27→14:58)
[2018-10-04 04:19] LABS: BASO# 0.02 X1000 (0.0-0.2); BASO% 0.3 % (0.0-0.8); EOS# 0.27 X1000 (0.0-0.7); EOS% 3.4 % (0.0-10.0); HEMATOCRIT 27.3 % (42.0-52.0); HEMOGLOBIN 9.2 g/dL (14.0-18.0); IMM GRAN# 0.05 X1000 (0.0-0.04); IMM GRAN% 0.6 % (0.0-0.5); LYMPH# 1.21 X1000 (1.2-3.4); LYMPH% 15.1 % (20.5-51.1); MCH 35.7 PG (27-31); MCHC 33.7 g/dL (33-37); MCV 105.8 FL (81-99); MONO# 0.96 X1000 (0.11-0.59); MPV 10.9 FL (7.4-10.4); NEUT# 5.49 X1000 (1.4-6.5); NEUT% 68.6 % (42.2-75.2); PLT 115 X1000 (130-400); RBC 2.58 XMIL (4.7-6.1)
[2018-10-04 04:35] LABS: BANDS 1 % (0-1); EOS 4 % (1-10); LYMPHS 16 % (21-51); MONO 8 % (1-9); SEGS 70 % (42-75)
[2018-10-04 04:36] LABS: ANISOCYTOSIS 2+; HYPOCHROM OCCASIONAL
[2018-10-04 04:37] LABS: LARGE PLATELETS OCCASIONAL; OVALOCYTES OCCASIONAL; POIKILOCYTOSIS OCCASIONAL; TARGET CELLS OCCASIONAL
[2018-10-04 04:38] LABS: STOMATOCYTES OCCASIONAL
[2018-10-04] MEDS: DUONEB (A & A) INH SCH ×6 (04:38→22:50)
[2018-10-04 04:39] LABS: ALBUMIN 2.6 g/dL (3.5-5.0); CALCIUM 8.5 mg/dL (8.8-10.2); CREATININE 2.3 mg/dL (0.7-1.2); PHOSPHORUS 3.3 mg/dL (2.7-4.5); POTASSIUM 3.4 mmol/L (3.5-5.1); TOTAL BILIRUBIN 0.6 mg/dL (0.20-1.00); TOTAL PROTEIN 5.4 g/dL (6.3-8.3)
--- NOTE | 2018-10-04 04:45 | EKG Report ---
Test Performed on : 10/04/2018 03:50:48 AM Test Reason : RUN OF VT Blood Pressure : / mmHG Vent. Rate : 100 BPM Atrial Rate : 100 BPM P-R Int : 176 ms QRS Dur : 108 ms QT Int : 386 ms P-R-T Axes : 073 074 -45 degrees QTc Int : 497 ms Sinus rhythm. with occasional premature ventricular complexes. and premature atrial complexes. Incomplete right bundle branch block ST & T wave abnormality, consider anterior ischemia Prolonged QT Abnormal ECG When compared with ECG of 30-SEP-2018 12:42, (Unconfirmed) Sinus rhythm. has replaced Wide QRS rhythm. Vent. rate has increased BY 35 BPM Unconfirmed Result
[2018-10-04] MEDS: HUMALOG (PARKWAY) SUBQ SCH ×4 (07:08→21:37)
[2018-10-04] MEDS: MIRALAX PO SCH ×2 (08:27→20:57)
[2018-10-04] MEDS: LIDODERM TOP SCH (08:28)
[2018-10-04] MEDS: THERA M PLUS PO SCH (08:28)
[2018-10-04] MEDS: ICAR-C PO SCH ×2 (08:28→20:57)
[2018-10-04] MEDS: MYCOSTATIN SUSP PO SCH ×4 (08:28→20:57)
[2018-10-04] MEDS: FOLIC ACID PO SCH (08:28)
[2018-10-04] MEDS: KLOR-CON PO SCH (08:28)
[2018-10-04] MEDS: MORPHINE IV PRN ×3 (08:46→19:52)
[2018-10-04] MEDS ORDERED: KLOR-CON PO ONE (10:47)
[2018-10-04] MEDS: PROTONIX IV SCH (16:17)
[2018-10-04] MEDS: SODIUM CHLORIDE 0.9% INJ SCH (16:17)
--- NOTE | 2018-10-04 16:32 | NEPHROLOGY PROGRESS NOTE ---
DATE: 10/04/2018 TIME SEEN: 1400. SUBJECTIVE: Mr. Bautista is resting quietly in bed. He is in no acute distress though he states that he felt better this morning than he does at this time. OBJECTIVE: Vital Signs: His last temperature 97.3, blood pressure 143/70, heart rate 95, respirations 18. He is on room air. Last recorded saturation 99%. LABORATORY DATA: Sodium 143, potassium 3.5, chloride 109, CO2 20, BUN 75, creatinine 2.3, glucose 147, anion gap 14, calcium 8.5, phosphorus 3.3, albumin 2.6, magnesium 2. White count 8, hemoglobin 9.2, hematocrit 27.3 with a platelet count of 115,000. PHYSICAL EXAMINATION: General: This is a 73-year-old white male resting quietly in bed. No new complaints, except just not feeling well. Skin: Warm and dry. HEENT: Normocephalic, atraumatic. Conjunctivae pale pink. He has PIERRE. Mucous membranes are dry. Neck: Supple. Trachea midline. No JVD evident. Cardiovascular: Regular rate and rhythm. He has an S4. Lungs: Clear to auscultation bilaterally. Equal excursion on oxygen. Abdomen: Soft, nontender. Positive bowel sounds. Genitourinary: Not inspected. Patient has adequate urine out, documented. Extremities: No edema, clubbing, or cyanosis. ASSESSMENT AND PLAN: 1. Acute kidney injury. BUN and creatinine continue to slowly improve. Creatinine today is 2.3 with a BUN of 75 with adequate urine out. No indications for dialysis intervention. 2. Fluid volume overload. The patient's fluid volume status remains fairly stable. He continues in a 12.7 L fluid balance. His skin turgor still is poor. He is in no respiratory distress. His last check x-ray completed yesterday shows decrease in left pleural effusions and left basilar infiltrates. His IVs have been stopped. 3. Electrolytes and acid-base balance. These are acceptable. 4. Anemia. This is low but stable. 5. Pneumonia associated with sepsis. The patient remains on renal dosed antibiotics. I would like to thank you for allowing us to follow with this patient. Dictated by LIZBET Jay for Felix Colvin MD cc: Akua M. LIZBET Lux MD Gregory S. Cheatham, MD
[2018-10-04] MEDS ORDERED: NS 1,000 ML IV SCH (18:15)
[2018-10-05] MEDS: MORPHINE IV PRN ×6 (00:20→21:45)
--- NOTE | 2018-10-05 00:41 | PROGRESS NOTE ---
DATE: 10/04/2018 SUBJECTIVE: The patient denies any complaints. States he is still very tired and fatigued. He has not really been out of bed. Denies any chest pains. Denies feeling any palpitations last night. PHYSICAL EXAMINATION: Vital Signs: Temperature 98.3 degrees, pulse 99, respiratory 20, BP 126/56. General: Patient is awake, alert. He is lying in bed. He is in no distress. He is pleasant to talk with. HEENT: Normocephalic. Neck: Supple. Cardiovascular: Regular rate. Chest: Clear. Abdomen: Soft. Extremities: Moves all extremities. ASSESSMENT: 1. Cardiac dysrhythmia. Had an episode of 7 beat ventricular tachycardia last night, quickly converted. 2. Sepsis, resolved. 3. Right lower lobe pneumonia. 4. Acute on chronic kidney injury. Creatinine continues to improve. Creatinine has dropped from 4.2 down to 2.3. 5. Anemia of chronic disease. 6. Hypokalemia, resolved. PLAN: We will continue to follow patient in the hospital. Get Physical Therapy involved. Appreciate Cardiology's input. cc: Jacques Lundy MD
[2018-10-05] MEDS: ZOSYN 2.25 GM in NS 50 ML IV SCH ×4 (01:42→19:47)
[2018-10-05] MEDS: ZYVOX 600 MG/D5W 600 MG/300 ML IVPB IV SCH (03:08)
[2018-10-05] MEDS: DUONEB (A & A) INH SCH ×6 (03:11→22:40)
[2018-10-05] MEDS: HUMALOG (PARKWAY) SUBQ SCH ×4 (06:24→22:24)
--- NOTE | 2018-10-05 06:39 | EKG Report ---
Test Performed on : 10/05/2018 06:03:08 AM Test Reason : dyspnea Blood Pressure : / mmHG Vent. Rate : 107 BPM Atrial Rate : 107 BPM P-R Int : 172 ms QRS Dur : 108 ms QT Int : 338 ms P-R-T Axes : 092 078 038 degrees QTc Int : 451 ms Sinus tachycardia. with occasional premature ventricular complexes. and fusion complexes Incomplete right bundle branch block ST & T wave abnormality, consider anterior ischemia Abnormal ECG When compared with ECG of 04-OCT-2018 03:50, (Unconfirmed) fusion complexes are now present premature atrial complexes. are no longer present QT has shortened Unconfirmed Result
[2018-10-05 06:44] LABS: ALBUMIN 2.5 g/dL (3.5-5.0); CALCIUM 8.4 mg/dL (8.8-10.2); CREATININE 1.9 mg/dL (0.7-1.2); PHOSPHORUS 2.6 mg/dL (2.7-4.5); POTASSIUM 4.2 mmol/L (3.5-5.1)
--- NOTE | 2018-10-05 07:04 | Diag Imaging Result Doc PS360 ---
EXAM: CHEST-PORTABLE - 10/05/2018 HISTORY: dyspnea TECHNIQUE: Portable chest COMPARISON: 10/03/2018 FINDINGS: Heart size appears upper normal. There are sternal wires from previous surgery again seen. There has been interval decrease in small left pleural effusion. There is mild subsegmental atelectasis at the lung bases. There is stable prominence of central vascular markings. There is no dense consolidation, gross pulmonary edema, or pneumothorax identified. Central venous catheter remains in place. IMPRESSION: Decrease in small left pleural effusion. Mild atelectasis at lung bases. Electronically signed by Shawn Camargo 10/05/2018 7:02 AM
[2018-10-05] MEDS: ZYVOX PO SCH ×3 (08:31→21:39)
[2018-10-05] MEDS: MYCOSTATIN SUSP PO SCH ×4 (08:31→21:39)
[2018-10-05] MEDS: LIDODERM TOP SCH (08:31)
[2018-10-05] MEDS: FOLIC ACID PO SCH (08:31)
[2018-10-05] MEDS: THERA M PLUS PO SCH (08:31)
[2018-10-05] MEDS: MIRALAX PO SCH ×2 (08:31→21:39)
[2018-10-05] MEDS: ICAR-C PO SCH ×2 (08:31→21:39)
[2018-10-05] MEDS ORDERED: PROTONIX PO SCH (21:00)
[2018-10-05] MEDS ORDERED: AYR NASAL SPRAY NAS PRN (21:44)
[2018-10-06] MEDS: ZOSYN 2.25 GM in NS 50 ML IV SCH ×3 (01:08→16:15)
[2018-10-06] MEDS: MORPHINE IV PRN ×3 (01:12→09:55)
--- NOTE | 2018-10-06 02:57 | PROGRESS NOTE ---
DATE: 10/05/2018 SUBJECTIVE: Patient overall notes he is starting to actually feel better. Having less cough, less congestion, less shortness of breath. PHYSICAL EXAMINATION: Vital Signs: Temperature 97.9, pulse 109, respiratory rate 20, blood pressure 131/64. General: Patient is awake, alert, currently in no distress. HEENT: Normocephalic. Neck: Supple. Cardiovascular: Regular rate. Chest: Clear. No crackles, no wheezing. Abdomen: Soft. Extremities: Moves all extremities. LABS: Creatinine 1.9, BUN 55, glucose 179. ASSESSMENT: 1. Szopt-vl-[id number] kidney injury. Kidneys continue to improve. The creatinine is down from 4.2 to 1.9. 2. Hypokalemia, resolved currently. 3. Diabetes, with hyperglycemia. 4. Anemia. 5. Sepsis, resolved. 6. Pneumonia. Continue antibiotics. 7. Adult failure to thrive. We will continue physical therapy. Hopefully, patient can continue to improve, although I expect he will need rehab at the beginning of the week. We will follow. cc: Jacques Lundy MD
[2018-10-06] MEDS: DUONEB (A & A) INH SCH ×4 (03:00→14:40)
[2018-10-06] MEDS: HUMALOG (PARKWAY) SUBQ SCH ×2 (06:00→13:40)
--- NOTE | 2018-10-06 06:13 | EKG Report ---
Test Performed on : 10/06/2018 06:04:02 AM Test Reason : dyspnea Blood Pressure : / mmHG Vent. Rate : 095 BPM Atrial Rate : 095 BPM P-R Int : 176 ms QRS Dur : 104 ms QT Int : 336 ms P-R-T Axes : 070 075 033 degrees QTc Int : 422 ms Sinus rhythm. with premature atrial complexes. Incomplete right bundle branch block ST & T wave abnormality, consider anterior ischemia Abnormal ECG When compared with ECG of 05-OCT-2018 06:03, (Unconfirmed) fusion complexes are no longer present premature ventricular complexes. are no longer present premature atrial complexes. are now present Unconfirmed Result
[2018-10-06 06:22] LABS: ALBUMIN 2.5 g/dL (3.5-5.0); CALCIUM 8.2 mg/dL (8.8-10.2); CREATININE 1.6 mg/dL (0.7-1.2); PHOSPHORUS 2.6 mg/dL (2.7-4.5)
[2018-10-06] MEDS: MYCOSTATIN SUSP PO SCH ×2 (09:55→13:40)
[2018-10-06] MEDS: THERA M PLUS PO SCH (09:56)
[2018-10-06] MEDS: ZYVOX PO SCH (09:56)
[2018-10-06] MEDS: LIDODERM TOP SCH ×2 (09:56→10:25)
[2018-10-06] MEDS: ICAR-C PO SCH (09:56)
[2018-10-06] MEDS: FOLIC ACID PO SCH (09:56)
[2018-10-06] MEDS: MIRALAX PO SCH (10:24)
[2018-10-06 11:55] VITALS: BP 167/65
--- NOTE | 2018-10-07 03:50 | DISCHARGE SUMMARY ---
ADMISSION DATE: 09/30/2018 DISCHARGE DATE: 10/06/2018 ADDENDUM: Patient seen and examined by myself. Full note dictated and discussed with nurse practitioner. Currently, patient is awake, alert. He notes he is feeling much better. He is ambulating without any difficulty. States overall he is feeling better. Currently having no palpitations. No shortness of breath. He will be discharged home. His creatinine is improved from 4.2 down to his baseline of 1.6. Potassium is back to normal. cc: Jacques Lundy MD
--- NOTE | 2018-10-07 12:53 | DISCHARGE SUMMARY ---
ADMISSION DATE: 09/30/2018 DISCHARGE DATE: 10/06/2018 DISCHARGE DIAGNOSES: 1. Sepsis, resolved. 2. Right lower lobe pneumonia. 3. Acute on chronic kidney injury with creatinine 1.6 to 1.9, which is actually better than it has been. 4. Hypokalemia, resolved. 5. Diabetes mellitus with hyperglycemia. 6. Pneumonia, improving. 7. Adult failure to thrive. CONSULT: 1. Dr. Felix Colvin, Nephrology. 2. Dr. Damian Malik in Cardiology. HOSPITAL COURSE: Mr. Bautista presented to the emergency room with elevated blood sugars, low blood pressures and heart palpitations. He was found to be septic, having right lower lobe pneumonia for which he was initially placed on Zosyn and Zyvox with DuoNebs. Thankfully, this has improved. He has less cough. He has less shortness of breath. He was found to be in acute kidney injury overlying chronic kidney disease, for which Dr. Colvin was consulted and managed his care. He did experience some bradycardia and hypotension, for which he was initially placed on dopamine. Once this was weaned off, we were able to restart his beta blockers. He was found to be in digoxin toxicity at a level of 3, for which he was given [*]. Heart rates increased withholding digoxin and have stayed in the 90s to 100s. DISCHARGE PHYSICAL EXAMINATION: Discharge vital signs: Blood pressure is 167/65 with a heart rate of 100, respirations 18, temperature is 97.7 degrees oral with room air saturation 100%. Cardiovascular: Regular rate and rhythm. S1 and S2 are appreciated. He has no S4. He has no lower extremity edema. No JVD evident. Lungs: Breath sounds are clear with no increased work of breathing noted. Chest rises and falls symmetrically with respiration. DISCHARGE MEDICATIONS: ProAir inhaler 1 puff as needed. Eliquis 2.5 p.o. b.i.d. Omnicef 300 mg p.o. b.i.d. for 5 days. Folic acid 1 mg p.o. daily. Lasix 40 mg daily. Isordil 10 mg t.i.d. Lidocaine patch as directed. Lopressor 25 mg p.o. b.i.d. MiraLAX 17 g b.i.d. Oxycodone 30 mg p.o. t.i.d. p.r.n. FOLLOW-UP: 1. He needs to follow up with Dr. Malik in 1 month. [facility]. 2. His primary care provider, Dr. Agapito Villagran, needs to call Monday to schedule an appointment. 3. He has been instructed to call to be seen sooner or return to the emergency room for any syncope, dizziness, any chest pain, palpitations, temperature greater than 101, any nausea, vomiting, diarrhea, constipation, black or bloody vomitus or stools, or blood pressures greater than [*] any hematuria, dysuria, frequency, urgency. 4. He is being discharged home in stable condition with family members. TIME SPENT: This is a greater than 30 minute discharge. Dictated by LIZBET Alanis for Jacques Lundy MD This chart was documented by, LIZBET Alanis and accurately reflects the services performed, treatment plan and medical decisions as attested by the providers signature Jacques Lundy MD. cc: LIZBET Alains MD
== END 2018-10-06 16:27 | disposition home or self-care (01) | DRG 871 ==
LOC: P.ED 12:21 → SUATTDRO 14:24 → P.ICU 14:24 → P.MEDSURG 10-03 21:53
PROVIDERS: ADMIT Family Medicine; ATTEND Family Medicine
CPT/HCPCS: 71010; 71020; 71045; 71046; 76770; 80048; 80053; 80069; 80162; 81001; 82550; 82570; 82805; 82948; 83036; 83605; 83735; 84100; 84156; 84300; 84484; 84540; 85025; 85027; 85651; 86140; 87040; 87088; 87205; 93005; 94640; 94761; 94799; 96361; 96365; 96368; 97163; 97530; 99285; A9270; C9113; J1265; J1815; J2020; J2270; J2405; J2543; J3480; J7030; J7050; S0164; XXXXX

== ENCOUNTER 2018-11-14 17:48 | Inpatient (IN) ==
--- NOTE | 2018-11-14 17:56 | EKG Report ---
Test Performed on : 11/14/2018 5:54:07 PM Test Reason : CP Blood Pressure : / mmHG Vent. Rate : 122 BPM Atrial Rate : 138 BPM P-R Int : 000 ms QRS Dur : 100 ms QT Int : 318 ms P-R-T Axes : 000 086 -66 degrees QTc Int : 453 ms Atrial fibrillation. with rapid ventricular response. with premature ventricular or aberrantly conduc jayro complexes. Incomplete right bundle branch block Marked ST abnormality, possible inferior subendocardial injury Abnormal ECG When compared with ECG of 06-OCT-2018 06:04, Atrial fibrillation. has replaced Sinus rhythm. ST now depressed in Inferior leads T wave inversion now evident in Inferior leads T wave inversion now evident in Lateral leads Unconfirmed Result
--- NOTE | 2018-11-14 18:00 | PROVIDER DOCUMENTATION ---
HPI-General Adult - General Chief Complaint: Chest Pain Stated Complaint: chest pain Time Seen by Provider: 11/14/18 17:54 Source: patient Allergies/Adverse Reactions: Patient Allergies Allergy/AdvReac Type Severity Reaction Status Date / Time acetaminophen Allergy ITCHING Verified 11/14/18 17:51 Home Medications: Home Medication List Medication Instructions Recorded Confirmed Last Taken Type Omeprazole 40 mg PO DAILY@0600 07/16/17 11/15/18 09/29/18 History Ipratropium/Albuterol INH 1 puff INH RTQ6H #1 inhaler 07/19/17 11/15/18 09/29/18 Rx [Combivent Respimat Inhaler] Albuterol Sulfate [Proair Hfa] 1 puff IN PRN PRN 05/08/18 11/15/18 09/29/18 History Apixaban [Eliquis] 2.5 mg PO BID #60 tab 06/20/18 11/15/18 09/29/18 Rx Digoxin [Lanoxin] 125 microgm PO DAILY #30 tab 06/20/18 11/15/18 09/29/18 Rx Folic Acid 1 mg PO DAILY #30 tab 06/20/18 11/15/18 09/29/18 Rx Iron Carbonyl/Ascorbic Acid 1 ea PO BID #30 tab 06/20/18 09/30/18 09/29/18 Rx [Icar-C] Isosorbide Dinitrate [Isordil] 10 mg PO TID #90 tab 06/20/18 09/30/18 09/29/18 Rx Lidocaine 5% Patch [Lidoderm] 1 ea TOP DAILY #20 patch 06/20/18 09/30/18 09/29/18 Rx Metoprolol [Lopressor] 25 mg PO BID #60 tab 06/20/18 11/15/18 09/29/18 Rx Multivitamins/Minerals [Centrum 1 ea PO DAILY #30 tab 06/20/18 09/30/18 09/29/18 Rx Silver] Oxycodone HCl 30 mg PO TID PRN #60 tab 06/20/18 11/15/18 09/29/18 Rx Polyethylene Glycol 3350 [Miralax] 34 gm PO BID #30 powder, packet 06/20/18 11/15/18 09/29/18 Rx Diltiazem HCl [Diltiazem 24Hr ER] 360 mg PO DAILY 11/15/18 11/15/18 Unknown History Furosemide [Lasix] 40 mg PO BID 11/15/18 11/15/18 Unknown History Glipizide 2.5 mg PO DAILY 11/15/18 11/15/18 Unknown History Ibuprofen 800 mg PO BID 11/15/18 11/15/18 Unknown History Ipratropium/Albuterol Sulfate 2.5 mg INH Q6HR 11/15/18 11/15/18 Unknown History [Iprat-Albut 0.5-3(2.5) mg/3 ml] Isosorbide Mononitrate E.r. [Imdur] 30 mg PO DAILY 11/15/18 11/15/18 Unknown History Megestrol Acetate [Megace Liquid] 10 ml PO DAILY 11/15/18 11/15/18 Unknown History Mirtazapine 15 mg PO QHS 11/15/18 11/15/18 Unknown History Morphine Ir 15 mg PO Q4H PRN PRN 11/15/18 11/15/18 Unknown History - History of Present Illness -Gen Adult Nature of Presenting Problems: patient is a 73 y/o with hx of COPD, CHF, Colon Cancer presented with chest pain and shortness of breath after a person fell on him. patient had new onset of A fib RVR on monitor, bilateral wheezes with tachypnea, no fever was reported. patient appeared in mild to moderate distress. Location of Pain/Injury: reports: chest Pain Radiation: reports: no radiation Quality of Pain: reports: throbbing, tightness Severity: reports: moderate Onset/Duration: reports: other (today) Timing: reports: still present Context/Activities at Onset: reports: light activity Modifying Factors: improves with: movement Associated Symptoms: reports: cough, shortness of breath Similar Symptoms Previously?: No Recently seen or treated by another doctor?: No Review of Systems - Adult - REVIEW OF SYSTEMS - ADULT Constitutional: denies: fever, fatique Eyes: reports: no symptoms reported Ears, Nose, Mouth & Throat: reports: no symptoms reported Cardiovascular: reports: chest pain, irregular heart rate, palpitations Respiratory: reports: shortness of breath, wheezing Gastrointestinal: reports: no symptoms reported. denies: abdominal pain Genitourinary: reports: no symptoms reported. denies: flank pain Musculoskeletal: reports: no symptoms reported Integumentary: reports: no symptoms reported Neurological: reports: tremors, other (alert, moved all extremities) Psychiatric: reports: no symptoms reported Endocrine: reports: no symptoms reported Hematologic/Lymphatic: reports: no symptoms reported Allergic/Immunologic: reports: no symptoms reported All Other Systems: Reviewed and Negative Past History - Adult - PAST MEDICAL HISTORY-ADULT Review of Records: reports: Nursing Assessment Review, Medications Reviewed Major Childhood Illnesses: reports: denies history Cardiovascular: reports: CHF, HTN, hyperlipidemia Respiratory: reports: COPD Gastrointestinal: reports: cancer, GERD Obstetrical/Gynecological: reports: denies history Genitourinary: reports: dialysis, kidney disease, other (renal disease) Musculoskeletal: reports: denies history Neurological: reports: denies history Endocrine/Immune: reports: Diabetes Other Conditions: reports: denies history Additional History: colon cancer - PRIOR SURGERIES/PROCEDURES Surgical/Procedure History: reports: CABG - IMMUNIZATION STATUS Childhood Immunizations: See Nurse Assessment Flu Vaccine: See Nurse Assessment - FAMILY HISTORY Family History: reviewed, not pertinent Physical Exam-General - PHYSICAL EXAM-ADULT Initial Vital Signs Reviewed: Yes - CONSTITUTIONAL General Appearance: alert, mild distress. negative: appears well - EYES Eyes: PERRL/EOMI - NECK Neck: non-tender, full range of motion, supple, normal inspection - RESPIRATORY Respiratory: respiratory distress, wheezing, increased rate, other (ttp left) - CARDIOVASCULAR Cardiovascular: tachycardia, irregularly irregular - LYMPHATIC Lymphatic: no adenopathy - MUSCULOSKELETAL Back Exam: no CVA tenderness Extremity: normal range of motion, non-tender - SKIN Integumentary: normal turgor, warm/dry, pallor - NEUROLOGIC Neurologic: grossly normal - PSYCHIATRIC Psych/Mental Status: normal mood/affect, normal thought content, normal thought process, oriented x 3 Progress - PLAN OF CARE/RESULTS Progress/Plan/Lab Results: Vital Signs - 8 hr 11/14/18 17:49 Pulse Rate 119 H Respiratory Rate 27 H Blood Pressure 131/79 O2 Sat by Pulse Oximetry 94 L Orders Category Date Time Status Cardiac Monitoring DIRECTED Care 11/14/18 17:53 Active Oxygen Therapy- ED Nursing DIRECTED Care 11/14/18 17:53 Active Saline Loc NOW Care 11/14/18 17:53 Active CHEST-2 VIEWS [RAD] Stat Exams 11/14/18 17:53 Ordered CHEST-PORTABLE [RAD] Stat Exams 11/14/18 17:58 Ordered CBC WITH ELECTRONIC DIFF [HEME] Stat Lab 11/14/18 17:59 Ordered CK PROFILE [SP CHEM] Stat Lab 11/14/18 17:59 Ordered COMPREHENSIVE METABOLIC PANEL [CHEM] Stat Lab 11/14/18 17:59 Ordered PRO B-NATRIURETIC PEPTIDE Stat Lab 11/14/18 17:59 Ordered PROTIME WITH INR [COAG] Stat Lab 11/14/18 17:59 Ordered PTT [COAG] Stat Lab 11/14/18 17:59 Ordered TROPONIN T Stat Lab 11/14/18 17:59 Ordered CP/SOB/Palp >45 yrs of Age Stat Oth 11/14/18 17:53 Ordered EKG [EKG] Stat Ther 11/14/18 17:53 Draft Result Diagrams: 11/20/18 04:15 11/20/18 04:15 - CONSULTS/PCP/HOSPITALIST Notification #1 *Consult/PCP/Hospitalist*: [place] Time Discussed: 19:05 Consult Disposition: Admit (OK to admit to ICU) - CHANGE OF SHIFT REPORT (ED Provider) 1 Report Given and Care Transferred to:: Dr Conrad Time of Transfer: 19:33 Items Pending: Labs Departure - Departure Date of Disposition Decision: 11/14/18 Time of Disposition Decision: 19:16 DIAGNOSIS: Atrial fibrillation with RVR, Elevated troponin, Pneumothorax, COPD (chronic obstructive pulmonary disease) Disposition: ADMITTED INPATIENT 09 Certified Medical Emergency: Emergent Condition: Critical - Critical Care Note This patient required my direct & personal management of CC.: Yes Total Time (mins): 48 Critical Care Statement: This patient required my direct personal management to treat or rule out processes, the absence of which, could potentiallly result in sudden, clinically significant life or limb threatening deterioration. Attestation - Physician/ LAMAR Attestation Patient care was provided by Advanced Practice Provider:: No The physician spent face to face time with patient:: Yes Advanced Practice Provider documentation review:: Supervising physician onsite and consulted in the evaluation and care of this patient. The physician did have a face to face encounter with the patient.
[2018-11-14 18:15] LABS: BASO# 0.02 X1000 (0.0-0.2); BASO% 0.2 % (0.0-0.8); EOS# 0.06 X1000 (0.0-0.7); EOS% 0.5 % (0.0-10.0); HEMATOCRIT 35.6 % (42.0-52.0); HEMOGLOBIN 11.9 g/dL (14.0-18.0); IMM GRAN# 0.02 X1000 (0.0-0.04); IMM GRAN% 0.2 % (0.0-0.5); LYMPH% 9.7 % (20.5-51.1); MCH 33.4 PG (27-31); MCHC 33.4 g/dL (33-37); MONO# 0.71 X1000 (0.11-0.59); MONO% 6.3 % (1.7-9.3); MPV 10.5 FL (7.4-10.4); NEUT# 9.45 X1000 (1.4-6.5); NEUT% 83.1 % (42.2-75.2); PLT 334 X1000 (130-400); RBC 3.56 XMIL (4.7-6.1); RDW 16.7 % (11.5-14.5); WBC 11.36 X1000 (4.8-10.8)
[2018-11-14 18:30] LABS: INR 1.1; PROTIME 14.8 Seconds (11.0-16.0); PTT 26.3 Seconds (22.3-41.8)
--- NOTE | 2018-11-14 18:30 | Diag Imaging Result Doc PS360 ---
CHEST-PORTABLE - 11/14/2018 INDICATION: chest pain and shortness of breath COMPARISON: 11/01/2018 FINDINGS: Stable chest port. There are COPD changes. There is a left-sided pneumothorax measuring about 20%. There is moderate subcutaneous emphysema at the upper left chest wall. There are diffuse interstitial opacities throughout the lungs suggesting pulmonary edema. No definite rib fracture. IMPRESSION: Left-sided pneumothorax. Pulmonary edema throughout the lungs. This report was discussed with Dr. Dimas on 11/14/2018 at 6:25 PM and was readback. Electronically signed by Basil Hudson 11/14/2018 6:27 PM
[2018-11-14] MEDS ORDERED: MORPHINE ONE (18:33)
[2018-11-14] MEDS ORDERED: MORPHINE IV ONE (18:35)
[2018-11-14 19:03] LABS: ALBUMIN 3.8 g/dL (3.5-5.0); CALCIUM 8.3 mg/dL (8.8-10.2); CREATININE 2.6 mg/dL (0.7-1.2); POTASSIUM 4.1 mmol/L (3.5-5.1); TOTAL BILIRUBIN 0.3 mg/dL (0.20-1.00); TOTAL PROTEIN 6.9 g/dL (6.3-8.3)
[2018-11-14] MEDS ORDERED: ROCEPHIN IV ONE (19:11)
[2018-11-14] MEDS ORDERED: NS 500 ML IV ONE (19:11)
[2018-11-14] MEDS ORDERED: CARDIZEM IV ONE (19:17)
[2018-11-14 19:23] LABS: CK INDEX 7.2 (0.0-2.5); CK-MB 17.44 ng/mL (0.0-5.0)
[2018-11-14] MEDS ORDERED: NS 50 ML ONE (20:01)
--- NOTE | 2018-11-14 21:00 | Diag Imaging Result Doc PS360 ---
CHEST-PORTABLE - 11/14/2018 7:31 PM INDICATION: chest catheter placement COMPARISON: 6:16 PM FINDINGS: There has been placement of a smallbore catheter in the left pleural space in good position. There has been essentially complete resolution of the left pneumothorax. There is still some soft tissue gas at the upper left chest wall. IMPRESSION: Good right chest tube placement with resolution of the pneumothorax. Electronically signed by Basil Hudson 11/14/2018 8:57 PM
[2018-11-14] MEDS ORDERED: NS 1,000 ML IV ONE (21:50)
[2018-11-15] MEDS ORDERED: ZOFRAN IV PRN ×2 (08:13→18:09)
[2018-11-15] MEDS ORDERED: NS 1,000 ML IV SCH (08:15)
--- NOTE | 2018-11-15 08:57 | Diag Imaging Result Doc PS360 ---
EXAM: CHEST-PORTABLE HISTORY: dyspnea TECHNIQUE: Portable chest single view COMPARISON: 11/14/2018 FINDINGS: Tiny left pneumothorax remains. Left-sided chest tube is unchanged. Subcutaneous air in the shoulder and axilla is similar to the prior exam. No change in the right-sided portacatheter. Sternal wires are present. No infiltrates or pleural effusions. IMPRESSION: No significant interval change. Electronically signed by Rudy Agrawal 11/15/2018 8:54 AM
[2018-11-15] MEDS ORDERED: MORPHINE ONE (09:13)
[2018-11-15 10:04] LABS: HEMATOCRIT 30.4 % (42.0-52.0); HEMOGLOBIN 10.2 g/dL (14.0-18.0); MCH 33.7 PG (27-31); MCHC 33.6 g/dL (33-37); MCV 100.3 FL (81-99); MPV 10.6 FL (7.4-10.4); RBC 3.03 XMIL (4.7-6.1); RDW 16.4 % (11.5-14.5); WBC 7.76 X1000 (4.8-10.8)
[2018-11-15 10:16] LABS: ALBUMIN 3.2 g/dL (3.5-5.0); CREATININE 2.4 mg/dL (0.7-1.2); POTASSIUM 3.8 mmol/L (3.5-5.1)
[2018-11-15] MEDS ORDERED: CARDIZEM CD PO SCH (10:45)
[2018-11-15 10:51] LABS: CK INDEX 6.7 (0.0-2.5); CK-MB 15.72 ng/mL (0.0-5.0)
[2018-11-15] MEDS ORDERED: OXY IR PO SCH ×2 (11:00)
[2018-11-15] MEDS: MORPHINE IV PRN ×4 (11:22→23:47)
[2018-11-15] MEDS: DUONEB (A & A) INH SCH ×2 (11:32→15:04)
[2018-11-15] MEDS ORDERED: DUONEB (A & A) INH PRN (13:58)
[2018-11-15] MEDS ORDERED: MUCINEX PO SCH (14:00)
[2018-11-15] MEDS ORDERED: MORPHINE IV ONE (15:53)
--- NOTE | 2018-11-15 18:31 | HISTORY AND PHYSICAL ---
ADDENDUM: Patient seen and examined by myself. Full note dictated and discussed with nurse practitioner. Patient presented to the hospital with chest pain. He was subsequently noted to have a pneumothorax. Chest tube was placed in the ER. We will admit the patient to the hospital, place him on antibiotics, and place him in the ICU. He has a known history of congestive heart failure, COPD, and colon cancer. We will follow his electrical rhythm. Further orders as needed. cc: Jacques Lundy MD
--- NOTE | 2018-11-15 18:35 | HISTORY AND PHYSICAL ---
CHIEF COMPLAINT: Chest pain. HISTORY OF PRESENT ILLNESS: This is a 73-year-old gentleman with a history of COPD, congestive heart failure and colon cancer, for which he is currently receiving chemotherapy per Dr. Grissom. He presented to the emergency room after falling. The patient states that his grandson was pushing him down the stairs on his wheelchair. They hit a wet spot on the step, causing them to fall. He states that he flipped in his wheelchair and the grandson landed on his chest. On arrival to the emergency room he was, of course, short of breath. He had bilateral wheezes. He was tachypneic, at a rate of 27 and he was found to be in atrial fibrillation with RVR. Chest tube was placed per the ER physician. The patient stated that after the chest tube was placed he got quite a bit of relief. He was then admitted to ICU for further evaluation and treatment. PAST MEDICAL HISTORY: 1. Coronary artery disease, status post coronary artery bypass graft, with CELAYA to LAD and SVG to diagonal. 2. Moderate mitral regurgitation. 3. Pulmonary artery hypertension, 45 to 50. 4. Colon cancer, currently receiving chemotherapy per Dr. Grissom. 5. Hypertension. 6. Chronic kidney disease. 7. Atrial fibrillation. 8. Bladder surgery for bladder cancer. 9. Benign brain tumor. 10. Inguinal hernia. PAST SURGICAL HISTORY: 1. Coronary artery bypass graft. 2. Bladder surgery. 3. Back surgery. 4. Inguinal hernia repair. SOCIAL HISTORY: He is a . He lives with his grandson, who is very active in his care. He denies any alcohol or illicit drug use. He does smoke about a pack a day. ALLERGIES: Tylenol, which causes itching. HOME MEDICATIONS: A list will be obtained by the nursing staff and we will restart as appropriate. REVIEW OF SYSTEMS: Discussed with the patient, with pertinent positives stated in the HPI. He denied any syncope or dizziness, any productive cough, fever, chills, any night sweats, any nausea, vomiting, diarrhea, constipation, any black or bloody vomitus or stools, any hematuria, dysuria, frequency or urgency. PHYSICAL EXAMINATION: GENERAL: This is a 73-year-old gentleman who is sitting up in the bed in ICU, in no distress. VITAL SIGNS: Blood pressure is 102/64 with a heart rate of 96, respirations are 18, temperature is 98.4 degrees, O2 saturation are ranging 92% to 99% on 2 L nasal cannula. EYES: Pupils are equal, round and react to light. EOMs are intact. Sclerae are anicteric. HEENT: Head is normocephalic, atraumatic. Mucous membranes are dry. NECK: Supple, with trachea midline. CARDIOVASCULAR: He has irregularly irregular rate and rhythm. S1 and S2 appreciated. He has no lower extremity edema. Calves are nontender. He does have a 1/6 to 2/6 systolic murmur. PULMONARY: Breath sounds with wheezes scattered throughout. They are diminished on the left. Chest rises and falls symmetrically with respiration. Chest wall is tender to palpation. GASTROINTESTINAL: Soft, nontender, nondistended. Bowel sounds in all 4 quadrants. GENITOURINARY: He has no CVA nor suprapubic tenderness. NEUROLOGIC: He is alert and oriented x3. SKIN: Warm and dry, with bruises scattered to bilateral extremities and chest. LABORATORY DATA: WBC was 11.3 with hemoglobin 11.9, hematocrit 35.6 and platelets of 334,000. Sodium 135, potassium 4.1, BUN 128, creatinine 2.6, glucose of 183. CPK was 243 with CK-MB 17.4. Troponin was 0.38. His digoxin level was 2.8. DIAGNOSTIC DATA: Chest x-ray on arrival to the ER revealed a left-sided pneumothorax with pulmonary edema throughout the lungs. Chest x-ray after chest tube insertion revealed good right chest tube placement, with resolution of the pneumothorax. EKG revealed atrial fibrillation, RVR with a rate of 122. ASSESSMENT AND PLAN: 1. Pneumothorax. Chest tube has been placed. It is currently to a Heimlich valve. We will place it to [facility] suction, -40. We will consult Dr. John Farris in General Surgery. 2. Atrial fibrillation with rapid ventricular response. After chest tube was placed and the patient received oxygen, his atrial fibrillation has remained controlled with rates primarily in the 90s to low 100s. We will continue with telemetry. 3. Elevated digoxin level. We will hold his digoxin and repeat levels in the morning. 4. Acute kidney injury. On review of his past labs, his creatinine has ranged from 1.9 to 2 over the past year. We will monitor daily. We will hydrate and follow. We will recheck a renal profile in the morning and renal dose any medications as needed. 5. History of hypertension. We will check his home medications and continue as appropriate. 6. Chronic anticoagulation secondary to atrial fibrillation. The patient's INR is 1.1. We will hold his Eliquis at present due to the chest tube and his recent trauma. 7. Chronic obstructive pulmonary disease. We will give DuoNeb q.6 hours with q.2 hours p.r.n. The patient does have a cough. He states he is having trouble moving secretions, so we will add Mucomyst b.i.d. as well as Mucinex. 8. Colon cancer, currently receiving chemotherapy. We are aware. We will notify Dr. Grissom of his admission. 9. Elevated troponins. Causes could be multifactorial. This could have resulted from the acute kidney injury as well as a component of trauma and pneumothorax. We will monitor troponins. Continue telemetry. If troponins rise or he does start having heart pain, we will consult Cardiology. 10. For gastrointestinal prophylaxis, we will continue his Prilosec. Further treatments pending hospital course. Dictated by LIZBET Alanis for Jacques Lundy MD This chart was documented by, LIZBET Alanis and accurately reflects the services performed, treatment plan and medical decisions as attested by the providers signature Jacques Lundy MD. cc: LIZBET Alanis MD
[2018-11-15] MEDS ORDERED: MUCOMYST 20% INH SCH (19:30)
[2018-11-15] MEDS: OXY IR PO SCH (19:34)
[2018-11-15] MEDS ORDERED: ROCEPHIN 1 GM in NS 50 ML IV SCH (20:00)
[2018-11-15] MEDS: MUCINEX PO SCH (20:51)
[2018-11-15] MEDS: LASIX PO SCH (20:51)
[2018-11-15] MEDS: REMERON PO SCH (20:51)
[2018-11-15] MEDS: LOPRESSOR PO SCH (20:51)
[2018-11-15] MEDS: MIRALAX PO SCH (20:52)
[2018-11-15] MEDS: ROCEPHIN 1 GM in NS 50 ML IV SCH (20:52)
[2018-11-15] MEDS ORDERED: MIRALAX PO SCH (21:00)
[2018-11-15] MEDS ORDERED: LOPRESSOR PO SCH (21:00)
[2018-11-15] MEDS ORDERED: REMERON PO SCH (21:00)
[2018-11-15] MEDS ORDERED: LASIX PO SCH (21:00)
[2018-11-15] MEDS: NS 1,000 ML IV SCH (23:46)
[2018-11-16] MEDS: DUONEB (A & A) INH SCH ×6 (03:16→21:28)
[2018-11-16] MEDS: MORPHINE IV PRN ×2 (03:48→07:21)
[2018-11-16] MEDS: OXY IR PO SCH ×3 (03:48→20:01)
[2018-11-16] MEDS: MUCOMYST 20% INH SCH ×5 (04:41→21:30)
[2018-11-16 05:12] LABS: HEMATOCRIT 34.5 % (42.0-52.0); HEMOGLOBIN 11.3 g/dL (14.0-18.0); MCH 33.7 PG (27-31); MCHC 32.8 g/dL (33-37); MPV 10.5 FL (7.4-10.4); RBC 3.35 XMIL (4.7-6.1); RDW 16.7 % (11.5-14.5); WBC 8.12 X1000 (4.8-10.8)
[2018-11-16] MEDS ORDERED: PRILOSEC PO SCH (06:00)
[2018-11-16 06:01] LABS: ALBUMIN 3.3 g/dL (3.5-5.0); CALCIUM 8.5 mg/dL (8.8-10.2); CREATININE 2.3 mg/dL (0.7-1.2); PHOSPHORUS 5.6 mg/dL (2.7-4.5); POTASSIUM 3.8 mmol/L (3.5-5.1)
[2018-11-16] MEDS: PRILOSEC PO SCH (06:32)
--- NOTE | 2018-11-16 08:25 | Diag Imaging Result Doc PS360 ---
EXAM: CHEST-PORTABLE 11/16/2018 HISTORY: pneumothorax TECHNIQUE: AP portable at 0814 COMMENT: There is still extensive soft tissue emphysema in the left axilla and supraclavicular region. There is no appreciable pneumothorax. The small caliber chest tube is again noted laterally. There is subsegmental atelectasis in the left base and possibly in the lingula. There is also platelike atelectasis in the lateral right lung. The heart size and pulmonary vascularity are stable. IMPRESSION: No evidence of residual pneumothorax. Soft tissue emphysema improved since 11/15/2018. Subsegmental atelectasis. Electronically signed by Zeeshan Croft 11/16/2018 8:22 AM
--- NOTE | 2018-11-16 08:31 | EKG Report ---
Test Performed on : 11/16/2018 08:21:36 AM Test Reason : Confirm rhythm Blood Pressure : / mmHG Vent. Rate : 094 BPM Atrial Rate : 131 BPM P-R Int : 000 ms QRS Dur : 108 ms QT Int : 400 ms P-R-T Axes : 000 082 -02 degrees QTc Int : 500 ms Atrial fibrillation. with premature ventricular or aberrantly conducted complexes. Incomplete right bundle branch block ST & T wave abnormality, consider inferior ischemia ST & T wave abnormality, consider anterior ischemia Prolonged QT Abnormal ECG When compared with ECG of 15-NOV-2018 18:04, (Unconfirmed) Atrial fibrillation. has replaced Junctional rhythm. QT has lengthened Unconfirmed Result
[2018-11-16] MEDS: CARDIZEM CD PO SCH (08:35)
[2018-11-16] MEDS: THERA M PLUS PO SCH (08:35)
[2018-11-16] MEDS: IMDUR PO SCH (08:35)
[2018-11-16] MEDS: FOLIC ACID PO SCH (08:35)
[2018-11-16] MEDS: LASIX PO SCH (08:35)
[2018-11-16] MEDS: MUCINEX PO SCH ×2 (08:36→20:01)
[2018-11-16] MEDS: MIRALAX PO SCH ×2 (08:36→20:00)
[2018-11-16] MEDS: LOPRESSOR PO SCH ×2 (08:36→20:01)
[2018-11-16] MEDS ORDERED: IMDUR PO SCH (09:00)
[2018-11-16] MEDS ORDERED: THERA M PLUS PO SCH (09:00)
[2018-11-16] MEDS ORDERED: LANOXIN PO SCH (09:00)
[2018-11-16] MEDS ORDERED: MEGACE LIQUID PO SCH (09:00)
[2018-11-16] MEDS ORDERED: FOLIC ACID PO SCH (09:00)
--- NOTE | 2018-11-16 09:21 | EKG Report ---
Test Performed on : 11/15/2018 6:04:09 PM Test Reason : Afib Blood Pressure : / mmHG Vent. Rate : 088 BPM Atrial Rate : 089 BPM P-R Int : 000 ms QRS Dur : 104 ms QT Int : 362 ms P-R-T Axes : 000 066 -45 degrees QTc Int : 438 ms Accelerated Junctional rhythm. with occasional premature ventricular complexes. Incomplete right bundle branch block ST & T wave abnormality, consider inferior ischemia ST & T wave abnormality, consider anterior ischemia Abnormal ECG When compared with ECG of 14-NOV-2018 17:54, (Unconfirmed) Junctional rhythm. has replaced Atrial fibrillation. Unconfirmed Result
--- NOTE | 2018-11-16 11:08 | CARDIOLOGY CONSULTATION ---
DATE: 11/16/2018 REASON FOR CONSULTATION: Cardiology was consulted for atrial fibrillation. Patient is status post traumatic pneumothorax, chest tube placed, has coronary artery disease. HISTORY OF PRESENT ILLNESS: A 73-year-old gentleman with history of COPD, congestive heart failure, colon cancer, metastatic, undergoing chemotherapy. He was admitted to the emergency room. His grandson was pushing his wheelchair when it flipped and the grandson landed on the patient's chest. The patient was brought to the emergency room, was noted to have tachypnea and pneumothorax. A chest tube was placed. The patient was also noted to be in atrial fibrillation. Subsequently rate was under control. The patient has known extensive cardiac and other history as listed below. As far as chest pains are concerned, currently with a chest tube his chest feels sore, especially when he takes a breath. In the last few months, he has not had any anginal symptoms which were significant. He has had mild episodes of chest discomfort which have been very stable. There are no palpitations. There is no syncope. REVIEW OF SYSTEMS: A 14-point review of system was done.GI System: There is no history of nausea. There is no vomiting or diarrhea. There is no history of hematemesis or melena. Central nervous system: No focal weakness to suggest a CVA, TIA. system: There is no dysuria or hematuria. PAST MEDICAL HISTORY: 1. Coronary artery disease, status post coronary artery bypass grafting 04/07/2010 with CELAYA to left anterior descending artery, SVG to diagonal, SVG to PDA. 2. Moderate tricuspid regurgitation with a pulmonary artery systolic pressure of 45 mm by echocardiogram on 02/27/2018. 3. Hypertension. 4. Hyperlipidemia. 5. Chronic kidney disease. 6. Metastatic colon cancer. History of smoking. 7. Inguinal hernia. 8. Brain benign tumor. 9. Bladder surgery for bladder cancer. 10. Ventral hernia repair. SOCIAL HISTORY: The patient is a and lives with his grandson. ALLERGIES: Tylenol. HOME MEDICATIONS: 1. Omeprazole 40. 2. Inhalers. 3. Eliquis 2.5 b.i.d. 4. Digoxin 0.125 mg daily. 5. Iron tablets. 6. Isosorbide dinitrate 10 mg p.o. t.i.d. 7. Metoprolol 25 mg p.o. b.i.d. 8. Isosorbide mononitrate. 9. Megace. 10. Diltiazem 360 mg a day. 11. Lasix 40 mg p.o. b.i.d. 12. Glipizide 2.5 mg a day. 13. Morphine tablets extended release. 14. Ibuprofen as needed. PHYSICAL EXAMINATION: Vital Signs: Blood pressure was 106/652. Cardiovascular: First and second heart sounds were heard. There was faint systolic murmur. Chest: Chest tube was in the right lung. Few scattered wheeze noted. Abdomen: Soft, nontender. Central nervous system: Alert and oriented. Moving all 4 extremities. Detailed central nervous system examination not performed. Extremities: He had a bilateral mild pitting pedal edema. LABORATORY EXAMINATION: Sodium 141, potassium 3.8, BUN 115, creatinine 2.3. Troponin abnormal at 0.331 and 0.323. CK-MB 15.72 with index of 6.7. RADIOLOGIC STUDIES: Chest x-ray on admission revealed a left-sided pneumothorax. X-ray done today revealed there was no pneumothorax. Chest tube in place. ASSESSMENT AND PLAN: Mr. Bonifacio Bautista is a 73-year-old gentleman with history of coronary artery disease, coronary artery bypass grafting, hypertension, peripheral edema, chronic kidney disease, metastatic lung cancer undergoing therapy for the same. Had a traumatic pneumothorax, as described above. Patient had chest tube placed. Electrocardiogram revealed atrial fibrillation and normal sinus rhythm as well. There was significant ST depression noted, however, given his pneumothorax, ST depressions could be present as well. From a cardiac standpoint, he has no significant angina which has changed to prior to this episode. He was recently seen in [place] in our office and he had been stable. As far as his abnormal troponin is concerned, it is a multifactorial given his chronic renal insufficiency. He has elevated BUN and creatinine. Currently plan: 1. We will get an echocardiogram. 2. His rate is under control. He has a combination of beta-blockers and calcium channel blockers. I have not made any changes. 3. He is on Eliquis which is held given his trauma and chest tube placement. We will restart Eliquis when the chest tubes are removed and he is stable. 4. Recommend continuing with his medications for hypertension, diabetes. 5. Thank you for the consult. We will follow hospital course. cc: MD Jacques Ornelas MD [facility]ITALAmol
[2018-11-16] MEDS: MEGACE LIQUID PO SCH (11:24)
[2018-11-16] MEDS: DILAUDID IV PRN ×4 (11:25→21:35)
[2018-11-16] MEDS: NS 1,000 ML IV SCH (11:25)
[2018-11-16 12:50] LABS: URINE SOURCE CLEAN CATCH
[2018-11-16 13:01] LABS: BILIRUBIN URINE NEGATIVE (NEGATIVE); BLOOD URINE NEGATIVE (NEGATIVE); COLOR YELLOW; GLUCOSE URINE NEGATIVE (NEGATIVE); KETONE URINE NEGATIVE (NEGATIVE); LEUKOCYTES URINE NEGATIVE (NEGATIVE); NITRITE URINE NEGATIVE (NEGATIVE); PH URINE 5.5; PROTEIN URINE 30 mg/dL (NEGATIVE); SP GRAVITY URINE 1.005; TURBIDITY URINE CLEAR (CLEAR); UR EPITHELIAL CELLS <10 /HPF (<10); URINE BACTERIA NEGATIVE /HPF; URINE RBC <10 /HPF (<10); URINE WBC <10 /HPF (<10); UROBILINOGEN URINE NORMAL (NORMAL)
[2018-11-16 13:14] LABS: UR PROT RANDOM 40.4 mg/dL
--- NOTE | 2018-11-16 13:23 | ECHO REPORT ---
ORDER DATE: 11/16/2018 INDICATION FOR THE PROCEDURE: Chest pain, pneumothorax. FINDINGS: 1. The right atrium appears normal in size. There is a hypermobile intra-atrial septum suggestive of a possible atrial septal aneurysm. In addition, there is [id number] shunting seen across the atrial septum consistent with a possible PFO. It appears relatively small based on color Doppler. 2. Mild tricuspid regurgitation. The RV systolic pressure is 63 suggesting pulmonary hypertension. 3. The right ventricle appears normal in size with normal RV systolic function. 4. No significant pulmonic insufficiency. 5. Normal left atrial size with a volume index of 20. 6. There is no mitral valve prolapse. Mild mitral regurgitation. Mitral annular calcification is noted. Limited Doppler evaluation of the mitral valve was performed. 7. The left ventricle appears normal in size with an end-diastolic dimension of 3.4. There is severe left ventricular hypertrophy with a posterior and interventricular septal wall thickness 1.7 cm each. Somewhat hyperdynamic LV systolic function with an estimated EF of greater than 70 percent. 8. Aortic valve is calcified but appears to open reasonably well. There is no evidence of significant gradient across the valve. 9. No pericardial effusion seen. cc: MD Allison Bergman PA Gregory S. Cheatham, MD MTDD
--- NOTE | 2018-11-16 16:22 | Diag Imaging Result Doc PS360 ---
EXAM: US RENAL 2 (RETROPER) COMPLETE INDICATION: crista/arf TECHNIQUE: COMPARISON: 10/01/2018 FINDINGS: There is increased renal cortical echotexture bilaterally, which is a nonspecific indicator of medical renal disease. There are a couple of small renal cysts on the right measuring up to 2.3 cm. No solid renal mass or hydronephrosis is identified. Both the right and left kidneys measure up to 10.4 cm in the greatest longitudinal axes. Right renal cortex measures up to 1 cm in the left renal cortex measures up to 1.1 cm in thickness. The urinary bladder is normally distended and is unremarkable. IMPRESSION: Increased renal cortical echotexture, which is a nonspecific indicator of medical renal disease. Electronically signed by Mandeep Lujan 11/16/2018 4:19 PM
--- NOTE | 2018-11-16 16:35 | Diag Imaging Result Doc PS360 ---
EXAM: ABDOMEN FLAT/UPRIGHT INDICATION: constipation TECHNIQUE: 2 views COMPARISON: None. FINDINGS: There are nonspecific gas and stool patterns throughout the abdomen. Most of the gas appears to be colonic. There is probably some small bowel gas. There is only mild distention and nothing that would necessarily indicate obstruction. There is no evidence of large volume free abdominal gas. There is advanced multilevel degenerative arthropathy throughout the spine. IMPRESSION: Nonspecific abdomen. Electronically signed by Mandeep Lujan 11/16/2018 4:33 PM
--- NOTE | 2018-11-16 16:53 | PROGRESS NOTE ---
DATE: 11/16/2018 SUBJECTIVE: The patient is resting comfortably in bed. He states that he is hungry. He does complain of left chest wall pain. OBJECTIVE: Vital Signs: Temperature 97.9, blood pressure 145/47, heart rate 98, respirations 21. O2 sats 95% on 3 L nasal cannula. Urine output 1.7 L. General: This is an elderly male lying in bed in no acute distress. HEENT: Head normocephalic, atraumatic. Heart: S1, S2 normal. Regular rate and rhythm. Lungs: Equal air entry bilaterally. No wheezing. No rales. Abdomen: The patient has a left-sided chest tube in place. Abdomen positive bowel sounds. Soft, nontender, nondistended. Extremities: No edema, no cyanosis. Neurologic: The patient is alert and oriented x 4. LABS: White blood cell count 8, hemoglobin 11, hematocrit 34, platelets 279,000. Sodium 141, potassium 3.8, chloride 105, CO2 18, BUN 115, creatinine 2.3, glucose 122, phosphorus 5.6. ASSESSMENT AND PLAN: 1. Left sided pneumothorax status post chest tube placement. The chest x-ray that was done today shows resolution of the pneumothorax. Will await further recommendations from the general surgeon. 2. Acute kidney injury on chronic kidney disease. Slowly improving. We will check urine studies and a renal ultrasound. The patient's urine output is improved. We will avoid nephrotoxic agents. We will hold the diuretic therapy at this time. 3. Coronary artery disease status post CABG. Continue on current cardiac medications. 4. Supratherapeutic digoxin level. The patient's digoxin is on hold and the digoxin level is better. 5. Atrial fibrillation. The patient is rate controlled. Continue on the current medications as directed by the campus manager. 6. Stage IV colon cancer. Aware. The patient is followed by Dr. Grissom. 7. Anemia. Stable. 8. Constipation. Will start the patient on laxative therapy. 9. Chronic pain. Continue on the current pain regimen. cc: MD Jacques Ding MD [facility]
--- NOTE | 2018-11-16 19:29 | GENERAL SURGERY CONSULTATION ---
DATE: 11/16/2018 HISTORY OF PRESENT ILLNESS: A 73-year-old gentleman with COPD, who apparently suffered a fall out of a wheelchair. He presented to the emergency department the evening of 11/14, and this showed a small left pneumothorax. A small PneumoDart tube was placed into his pleural space, and since then his pneumothorax has resolved. PAST MEDICAL HISTORY: He has significant medical problems including coronary artery disease, mitral regurgitation, pulmonary artery hypertension, chronic kidney disease, atrial fibrillation, history of colon cancer and bladder cancer. PAST SURGICAL HISTORY: Previous surgery includes a coronary bypass, bladder surgery, back surgery and inguinal hernia repair. MEDICATIONS: Listed. SOCIAL HISTORY: He is a but lives with his grandson. He has an attentive daughter who is an RN. He does smoke. ALLERGIES: He is intolerant of Tylenol. REVIEW OF SYSTEMS: As noted above. PHYSICAL EXAMINATION: He is comfortable, afebrile. Heart rate 80, respiratory rate 16, blood pressure 145/47. He has breath sounds bilaterally. The small PneumoDart is attached to an [employer] Pleur-Evac but no air leak is seen. The abdomen is soft. No peripheral edema. He is awake and alert. LABORATORY DATA: White count is 8000, hemoglobin 11.3. BUN is 115, creatinine 2.3. ASSESSMENT AND PLAN: His left pneumothorax appears resolved, but since his tube is in place, I will place it on negative pressure or suction tonight, and we will repeat his x-ray tomorrow. No new intervention is recommended. cc: MD Jacques Sutton MD
[2018-11-16] MEDS: ROCEPHIN 1 GM in NS 50 ML IV SCH (20:00)
[2018-11-16] MEDS: COLACE PO SCH (20:01)
[2018-11-16] MEDS: REMERON PO SCH (20:01)
[2018-11-16] MEDS: DULCOLAX PR SCH (20:01)
[2018-11-17] MEDS: DILAUDID IV PRN ×4 (00:37→09:55)
[2018-11-17] MEDS: DUONEB (A & A) INH PRN ×2 (00:41→17:30)
[2018-11-17] MEDS: NS 1,000 ML IV SCH (00:42)
[2018-11-17] MEDS: OXY IR PO SCH ×2 (03:48→12:28)
[2018-11-17] MEDS: DUONEB (A & A) INH SCH ×4 (03:53→21:21)
[2018-11-17 06:09] LABS: CALCIUM 8.7 mg/dL (8.8-10.2); CREATININE 2.3 mg/dL (0.7-1.2); POTASSIUM 3.4 mmol/L (3.5-5.1)
[2018-11-17 06:12] LABS: BASO# 0.01 X1000 (0.0-0.2); BASO% 0.2 % (0.0-0.8); EOS# 0.03 X1000 (0.0-0.7); EOS% 0.5 % (0.0-10.0); HEMATOCRIT 30.2 % (42.0-52.0); HEMOGLOBIN 9.8 g/dL (14.0-18.0); IMM GRAN# 0.02 X1000 (0.0-0.04); IMM GRAN% 0.3 % (0.0-0.5); LYMPH# 0.54 X1000 (1.2-3.4); LYMPH% 9.4 % (20.5-51.1); MCH 32.9 PG (27-31); MCHC 32.5 g/dL (33-37); MCV 101.3 FL (81-99); MONO# 0.39 X1000 (0.11-0.59); MONO% 6.8 % (1.7-9.3); MPV 10.6 FL (7.4-10.4); NEUT# 4.78 X1000 (1.4-6.5); NEUT% 82.8 % (42.2-75.2); PLT 240 X1000 (130-400); RBC 2.98 XMIL (4.7-6.1); RDW 16.1 % (11.5-14.5); WBC 5.77 X1000 (4.8-10.8)
[2018-11-17] MEDS: PRILOSEC PO SCH (06:44)
[2018-11-17] MEDS: MUCOMYST 20% INH SCH ×2 (07:43→21:20)
--- NOTE | 2018-11-17 08:11 | Diag Imaging Result Doc PS360 ---
EXAM: CHEST-PORTABLE INDICATION: pneumothorax TECHNIQUE: One view COMPARISON: 11/16/2018 FINDINGS: The right chest port is in stable position. The small caliber left chest tube is stable. There is a residual tiny left apical pneumothorax. Lung volumes are slightly lower. Bibasilar atelectasis and patchy infiltrate throughout both lungs are essentially stable given differences in inspiration. No definite new consolidation is identified. Cardiac silhouette is stable. IMPRESSION: Slightly lower lung volumes. Essentially stable chest, otherwise. Electronically signed by Mandeep Lujan 11/17/2018 8:09 AM
[2018-11-17] MEDS: COLACE PO SCH ×2 (08:52→20:33)
[2018-11-17] MEDS: LOPRESSOR PO SCH ×2 (08:52→20:34)
[2018-11-17] MEDS: FOLIC ACID PO SCH (08:52)
[2018-11-17] MEDS: MEGACE LIQUID PO SCH (08:52)
[2018-11-17] MEDS: MUCINEX PO SCH ×2 (08:52→20:33)
[2018-11-17] MEDS: THERA M PLUS PO SCH (08:53)
[2018-11-17] MEDS: CARDIZEM CD PO SCH (08:53)
[2018-11-17] MEDS: IMDUR PO SCH (08:53)
[2018-11-17] MEDS: MIRALAX PO SCH ×2 (08:53→20:33)
[2018-11-17] MEDS ORDERED: KLOR-CON PO ONE (09:00)
--- NOTE | 2018-11-17 13:46 | PROGRESS NOTE ---
DATE: 11/17/2018 SUBJECTIVE: The patient is sitting up at the edge of the bed eating breakfast. His daughter is present at the bedside. The patient states that he feels a lot better today and that his pain is under better control. He does have a chest tube in place to the left chest wall. OBJECTIVE: Vitals: Temperature 97.7 degrees, blood pressure 116/59, heart rate 90, respirations 18, O2 saturation 92% on 3 L nasal cannula. Intake 2 L, output 1.7 L. General: This is a chronically ill-appearing elderly male, who is cachectic. HEENT: Head is normocephalic, atraumatic. Heart: S1, S2 normal. Lungs: Equal air entry bilaterally. No wheezing. No rales. No rhonchi. Abdomen: Positive bowel sounds. Soft, nontender, nondistended. Extremities: 2+ edema in the feet. Neurologic: The patient is alert and oriented x4. DIAGNOSTIC DATA: White blood cell count 5.7, hemoglobin 9.8, hematocrit 30, platelets 240,000. Sodium 145, potassium 3.4, chloride 109, CO2 19, BUN 103, creatinine 2.3, glucose 156. Phosphorus 5.3. Chest x-ray shows a tiny left apical pneumothorax. ASSESSMENT AND PLAN: 1. Acute on chronic hypoxemic respiratory failure. The pneumothorax appears to be improving. Continue with supplemental oxygen and bronchodilator therapy. 2. Left-sided pneumothorax, status post chest tube placement. Slowly improving. Further management as per the general surgeon. 3. Acute kidney injury on chronic kidney disease. Slowly improving. The patient's urine output remains adequate. The patient's diuretic therapy remains on hold. We will consult with the hotel operations manager for further recommendations. 4. Atrial fibrillation. The patient is rate controlled. 5. Stage IV colon cancer. Aware. 6. Coronary artery disease, status post coronary artery bypass graft. Aware. 7. Anemia. Stable. 8. Constipation. Continue with laxative therapy. 9. Deep vein thrombosis prophylaxis. We will start the patient on heparin. cc: MD Jacques Ding MD [facility]
--- NOTE | 2018-11-17 14:47 | CARDIOLOGY PROGRESS NOTE ---
DATE: 11/17/2018 CHIEF COMPLAINT: Pain in the left chest, irregular heartbeat. SUBJECTIVE: Mr. Bautista is still complaining of pain in the left chest cage. He has a chest tube in place. He is still somewhat short of breath. He is really quite frail looking. His body mass index is 17. He appears to be emaciated. OBJECTIVE: Blood pressure is 96/60, temperature 97.5, pulse 92, respirations 16. He is awake, alert, appears to be chronically ill. HEENT: No jugular venous distention. Diminished breath sounds in the left lung. Very painful left chest. Right lung appears to be relatively clear. Heart sounds are regular and rhythmic with occasional premature beats. Abdomen is nontender. Extremities showed 1 to 2+ edema. Neurologic: Follows commands. Moves all 4 extremities. DIAGNOSTIC DATA: Today his BUN is 103, creatinine 2.3. Sodium is 145, potassium 3.4. His BUN on admission was 128. His creatinine on admission was 2.6. That would be consistent with either having obstructive uropathy or having a low cardiac output state. His hemoglobin today is 9.8, white cell count is 5770. Of note, the renal ultrasound from 11/16/2018 shows increased renal cortical echotexture without hydronephrosis. 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 Abdominopelvic CT of 06/14/2018 showed possible large mass in left lobe of liver. Echocardiogram was done on 11/16/2017 and it shows normal ejection fraction of 70%. Ventricle is hyperdynamic. IMPRESSION: 1. The patient presented with pneumothorax on the left chest, traumatic. 2. History of coronary bypass surgery, previous bypass in 2009. 3. History of hypertension. 4. History of having metastatic colon cancer, on chemotherapy. 5. History of bladder cancer. 6. Paroxysmal atrial fibrillation. RECOMMENDATIONS: At this point, I will continue current therapy. His telemetry does not show any atrial fibrillation. His overall prognosis appears to be quite grim given the diagnosis of metastatic cancer. His renal dysfunction is also another major problem. We will follow him as needed. cc: MD Jacques Lacy MD [facility]
[2018-11-17] MEDS ORDERED: SOLU-MEDROL IV ONE (16:41)
[2018-11-17 17:09] LABS: BE -7.5 mmoll (-3.0-3.0); BLOOD TYPE ARTERIAL; HCO3-(ACT) 18.9 mmoll (20.0-26.0); METHB 0.3 % (0.0-1.5); O2(CT) 12.1 mL/dL (15.0-23.0); PCO2(98.6) 36 mmHg (35-45); PO2(98.6) 50 mmHg (60-100); SAMPLE BLOOD; SAO2 86.8 % (95.0-100.0); THB 9.9 g/dL (11.5-17.4); pH(98.6) 7.31 (7.35-7.45)
[2018-11-17 17:13] LABS: MODALITY CANNULA; O2HB 86.5 % (95.0-99.0)
--- NOTE | 2018-11-17 18:41 | GENERAL SURGERY PROGRESS NOTE ---
DATE: 11/17/2018 SUBJECTIVE: Mr. Bautista is doing generally well. His chest x-ray shows resolution of his pneumothorax. There is no air leak noted. PLAN: We will stop his suction again today and repeat his x-ray in the morning, and hopefully remove his chest tube tomorrow. cc: MD Jacques Sutton MD
[2018-11-17] MEDS: DULCOLAX PR SCH (20:34)
[2018-11-17] MEDS: ROCEPHIN 1 GM in NS 50 ML IV SCH (20:34)
[2018-11-17] MEDS: REMERON PO SCH (20:34)
[2018-11-17] MEDS: HEPARIN SUBQ SCH (20:34)
[2018-11-17] MEDS: OXY IR PO PRN (20:47)
--- NOTE | 2018-11-17 21:25 | NEPHROLOGY CONSULTATION ---
DATE: 11/17/2018 REASON FOR CONSULTATION: Was JORGE/CKD. HISTORY OF PRESENT ILLNESS: Mr. Bautista is a 73-year-old white male who we have seen before. He is frail, elderly, has severe coronary disease and severe COPD with pulmonary hypertension. He fell at home and suffered a pneumothorax on the left. He had a chest tube placed in the emergency room and was subsequently transferred to [facility] from [facility]. He now has a water- seal in place. In this context, his creatinine has been 2.3 to 2.6. During his recent admission to the hospital his initial creatinine was 4.4 but improved to 1.6 at the time of discharge. PAST MEDICAL HISTORY: As above. He also has history of bladder cancer, he had CKD with baseline creatinine 1.6. History of colon cancer, mitral regurgitation etc. HOME MEDICATIONS: Include omeprazole, ipratropium, albuterol, apixaban, digoxin, iron, isosorbide, metoprolol, folate, oxycodone, isosorbide, megestrol, mirtazapine, diltiazem, furosemide, glipizide, ibuprofen, morphine IR. ALLERGIES: Acetaminophen. SOCIAL HISTORY: As above. He continues to smoke. FAMILY HISTORY: Otherwise noncontributory. REVIEW OF SYSTEMS: Otherwise noncontributory. PHYSICAL EXAMINATION: Vital Signs: Blood pressure 125/44, heart rate 99, respirations 20, afebrile. General: Chronically ill, frail elderly man, no acute distress. Skin: Thin with multiple ecchymoses and hyperpigmentation. HEENT: Pupils are equal. Conjunctivae are pink. Oropharynx is dry. Neck: Supple. Neck veins are not visible. Heart: Regular. No gallops. Lungs: Equal. No crackles. Chest tube is placed on the left. Abdomen: Benign. Extremities: Have 2+ edema. No clubbing or cyanosis. IMPRESSION: Acute kidney injury overlying chronic kidney disease. BUN and creatinine are improving. He has modest edema but no other signs or symptoms of acute volume overload. As such, we will simply observe without any changes in his regimen today. cc: MD Jacques Vizcarra MD
[2018-11-18] MEDS: DUONEB (A & A) INH SCH ×5 (03:12→22:52)
[2018-11-18] MEDS ORDERED: LASIX IV ONE ×3 (03:48→22:36)
[2018-11-18] MEDS: OXY IR PO PRN ×2 (05:29→23:32)
[2018-11-18] MEDS: PRILOSEC PO SCH (05:29)
[2018-11-18 06:06] LABS: BASO# 0.01 X1000 (0.0-0.2); BASO% 0.2 % (0.0-0.8); HEMATOCRIT 30.9 % (42.0-52.0); HEMOGLOBIN 10.1 g/dL (14.0-18.0); IMM GRAN# 0.02 X1000 (0.0-0.04); IMM GRAN% 0.4 % (0.0-0.5); LYMPH# 0.21 X1000 (1.2-3.4); LYMPH% 4.3 % (20.5-51.1); MCH 33.3 PG (27-31); MCHC 32.7 g/dL (33-37); MONO# 0.17 X1000 (0.11-0.59); MONO% 3.5 % (1.7-9.3); MPV 10.8 FL (7.4-10.4); NEUT# 4.48 X1000 (1.4-6.5); NEUT% 91.6 % (42.2-75.2); PLT 258 X1000 (130-400); RBC 3.03 XMIL (4.7-6.1); RDW 16.3 % (11.5-14.5); WBC 4.89 X1000 (4.8-10.8)
[2018-11-18 06:25] LABS: LYMPHS 2 % (21-51); MONO 2 % (1-9); SEGS 96 % (42-75)
[2018-11-18 06:28] LABS: CALCIUM 8.7 mg/dL (8.8-10.2); CREATININE 2.3 mg/dL (0.7-1.2); POTASSIUM 4.4 mmol/L (3.5-5.1)
--- NOTE | 2018-11-18 08:18 | Diag Imaging Result Doc PS360 ---
EXAM: CHEST-PORTABLE INDICATION: pneumothorax TECHNIQUE: One view COMPARISON: 11/17/2018 FINDINGS: The right chest port is in stable position. The small caliber left chest tube is stable. A tiny left apical pneumothorax persists. There is an overall decrease in soft tissue emphysema overlying the left chest wall. Bilateral patchy infiltrates are essentially stable. No new consolidation is identified. Cardiac silhouette is stable. IMPRESSION: Tiny residual left apical pneumothorax that is similar to the previous study but a decrease in soft tissue emphysema. Stable chest, otherwise. Electronically signed by Mandeep Lujan 11/18/2018 8:16 AM
[2018-11-18] MEDS: MIRALAX PO SCH ×2 (09:26→20:01)
[2018-11-18] MEDS: HEPARIN SUBQ SCH ×2 (09:27→20:01)
[2018-11-18] MEDS: CARDIZEM CD PO SCH (09:27)
[2018-11-18] MEDS: IMDUR PO SCH (09:27)
[2018-11-18] MEDS: LOPRESSOR PO SCH ×2 (09:27→20:01)
[2018-11-18] MEDS: THERA M PLUS PO SCH (09:27)
[2018-11-18] MEDS: MUCINEX PO SCH (09:27)
[2018-11-18] MEDS: COLACE PO SCH ×2 (09:27→20:01)
[2018-11-18] MEDS: FOLIC ACID PO SCH (09:27)
[2018-11-18] MEDS: MEGACE LIQUID PO SCH (09:27)
--- NOTE | 2018-11-18 09:41 | GENERAL SURGERY PROGRESS NOTE ---
DATE: 11/18/2018 SUBJECTIVE: The chest x-ray shows continued resolution of his pneumothorax. He has no air leak. I attached his Pleur-evac again to suction, but no air leaked out. We will therefore removed the small tube, which we did uneventfully, and a Xeroform gauze dressing was applied. cc: MD Jacques Sutton MD
[2018-11-18] MEDS: MUCOMYST 20% INH SCH ×2 (09:59→19:23)
[2018-11-18] MEDS ORDERED: ALBUMIN 25% IV SCH (11:30)
[2018-11-18 12:11] LABS: ALLEN TEST NO; BE -8.2 mmoll (-3.0-3.0); BLOOD TYPE ARTERIAL; HCO3-(ACT) 18.5 mmoll (20.0-26.0); O2HB 96.6 % (95.0-99.0); PCO2(98.6) 41 mmHg (35-45); PO2(98.6) 131 mmHg (60-100); SAMPLE BLOOD; SAO2 97.2 % (95.0-100.0); THB 10.1 g/dL (11.5-17.4); pH(98.6) 7.26 (7.35-7.45)
[2018-11-18 12:12] LABS: URINE SOURCE CATH
[2018-11-18 12:13] LABS: MODALITY NRB
[2018-11-18 12:17] LABS: BILIRUBIN URINE NEGATIVE (NEGATIVE); BLOOD URINE NEGATIVE (NEGATIVE); COLOR YELLOW; GLUCOSE URINE NEGATIVE (NEGATIVE); KETONE URINE NEGATIVE (NEGATIVE); LEUKOCYTES URINE NEGATIVE (NEGATIVE); NITRITE URINE NEGATIVE (NEGATIVE); PH URINE 5.5; PROTEIN URINE 70 mg/dL (NEGATIVE); SP GRAVITY URINE 1.006; TURBIDITY URINE CLEAR (CLEAR); UROBILINOGEN URINE NORMAL (NORMAL)
[2018-11-18 12:18] LABS: UR EPITHELIAL CELLS <10 /HPF (<10); URINE BACTERIA NEGATIVE /HPF; URINE RBC <10 /HPF (<10); URINE WBC <10 /HPF (<10)
--- NOTE | 2018-11-18 12:36 | Diag Imaging Result Doc PS360 ---
EXAM: CHEST-PORTABLE INDICATION: Flash Pulmonary Edema TECHNIQUE: One view COMPARISON: 11/18/2018 FINDINGS: The right chest port is in stable position. The left chest tube has been removed. A tiny right apical pneumothorax persists and is essentially stable. Patchy consolidation in the right upper lobe and left mid and lower lung zone is essentially stable. No new consolidation is identified. Cardiac silhouette is stable. IMPRESSION: Interval removal of the chest tube. Stable chest, otherwise. Electronically signed by Mandeep Lujan 11/18/2018 12:33 PM
[2018-11-18] MEDS: MAXIPIME 1 GM in NS 50 ML IV SCH (14:12)
[2018-11-18] MEDS: ZYVOX 600 MG/D5W 600 MG/300 ML IVPB IV SCH (14:12)
--- NOTE | 2018-11-18 16:05 | PROGRESS NOTE ---
DATE: 11/18/2018 SUBJECTIVE: The patient was noted to be hypoxic en route to CT this morning so he was returned to his room at which time he was noted to have increased work of breathing with bilateral crackles upon auscultation. The patient was given 80 mg of IV Lasix with improvement in his respiratory status. OBJECTIVE: Vital Signs: Temperature 98.6 degrees, blood pressure 145/81, heart rate 92, respirations 21, O2 saturation is 100% on 5 L nasal cannula. Intake 590, output 1 L. General: This is a chronically ill-appearing, elderly male lying in bed, in mild distress. Head: Normocephalic, atraumatic. Heart: S1, S2 normal. Tachycardic. Lungs: Coarse breath sounds bilaterally with crackles. Abdomen: Positive bowel sounds. Soft, nontender, nondistended. Extremities: There is 2+ edema bilaterally to the legs. Neurologic: The patient is awake with periods of confusion. He is able to move all 4 extremities. Labs: White blood cell count 4.8, hemoglobin 10, hematocrit 30, platelets 258,000. Sodium 132, potassium 4.4, chloride 107, CO2 18, BUN 98, creatinine 2.3, glucose 189, albumin 3.3. Chest x- ray shows patchy consolidation in the right upper lobe and left middle and lower lung zone is stable. ASSESSMENT AND PLAN: 1. Acute hypoxemic respiratory failure. The patient was noted to be volume overloaded with an infiltrative process. The patient has received diuretic therapy today. We will continue with supplemental oxygen. We will also add antibiotic coverage. Will consult pulmonary. 2. Traumatic left pneumothorax status post chest tube placement. The patient's chest tube was removed yesterday. We will continue to monitor closely. 3. Possible pneumonia. Broad-spectrum antibiotics have been started. We will await the results of the chest CT, blood and sputum cultures and procalcitonin level. Continue O2 therapy. 4. Acute kidney injury on chronic kidney disease. Stable. Nephrology is following. 5. Stage IV colon cancer. Aware. is following. 6. Atrial fibrillation. The patient is rate controlled. Cardiology is following. 7. Coronary artery disease, status post coronary artery bypass graft. Aware. 8. Constipation. Continue with laxative therapy. 9. Anemia. Stable. 10. Deep vein thrombosis prophylaxis. Continue on heparin. cc: MD Jacques Ding MD [facility]
[2018-11-18] MEDS: CLINIMIX E 4.25%-5% SOLUTION 1,000 ML IV SCH (18:06)
--- NOTE | 2018-11-18 18:36 | PULMONOLOGY CONSULTATION ---
DATE: 11/18/2018 REQUESTING PHYSICIAN: Angie Carranza MD. REASON FOR CONSULTATION: Respiratory failure. HISTORY OF PRESENT ILLNESS: Mr. Bautista is a 73-year-old white male, with COPD, coronary artery disease, ongoing tobacco use, who was diagnosed with metastatic colon cancer in May 2018. The patient has been undergoing treatment by Dr. Grissom. He has lost 60 pounds since the May admission. The patient was being pushed in a wheelchair by his grandson when they hit a wet spot on a step, causing him to fall. The patient landed on his chest and sustained a pneumothorax. A PneumoDart was placed in the left chest on day of admission, 11/14/2018. The patient has had some difficulty with confusion during this hospitalization. He has had increased work of breathing with new bilateral infiltrates. He was transferred from the CIC unit to the ICU with acute hypoxemic respiratory failure. Pulmonary consultation was requested. PAST MEDICAL HISTORY/PROBLEM LIST: 1. COPD, with ongoing tobacco use. 2. Pulmonary hypertension, with a PA pressure of 63. 3. [id number]-[id number] shunting noted on echocardiogram on 11/16/2018, possibly related to a patent foramen ovale. 4. Coronary artery disease, status post bypass grafting. 5. Metastatic colon cancer, as per above. 6. Chronic kidney disease with acute on chronic kidney disease during this admission. 7. Diabetes mellitus. 8. History of intracranial hemorrhage. 9. Abdominal aortic aneurysm. 10. Atrial fibrillation. SOCIAL HISTORY: The patient lives with his grandson. Ongoing tobacco use. No alcohol use listed. REVIEW OF SYSTEMS: Limited. The patient will arouse and says "I'm okay", but will not engage in conversation. PHYSICAL EXAMINATION: General: Reveals a frail, chronically ill-appearing white male who appears much thinner than his prior admission. His BMI is now 17. He has mild work of breathing. He has audible rhonchi present. Vital Signs: Blood pressure 131/61, heart rate 94, respiratory rate 17, oxygen saturation 97% on 3 L nasal cannula. HEENT: Pupils are equal and reactive. Oropharynx dry. Neck: Supple. Chest: Reveals audible rhonchi bilaterally. Cardiac Exam: S1, S2. Abdomen: Soft. Extremities: Upper extremity bruising. LABORATORIES: Arterial blood gas on admission to the hospital: PH 7.31, pCO2 of 36, pO2 of 50 on 40% FiO2. Arterial blood gas earlier today: PH 7.26, pCO2 of 41, pO2 of 131. Electrolytes: Sodium 142, potassium 4.4, chloride 107, bicarbonate 18, BUN 98, creatinine 2.3. Chest x-ray with resolution of pneumothorax. He has patchy bilateral infiltrates. IMPRESSION: A 73-year-old with: 1. Chronic obstructive pulmonary disease. 2. Ongoing tobacco use. 3. Bilateral pneumonia. 4. Acute hypoxemic respiratory failure. 5. Metastatic colon cancer. 6. Abnormal weight loss. 7. Protein-calorie malnutrition. 8. Status post treatment for pneumothorax, which appeared to be traumatic. 9. The patient's prognosis is poor. RECOMMENDATIONS: 1. Make the patient n.p.o. He is too weak. With an altered mental status, he will not tolerate oral intake. We will continue medications and ice chips. 2. Initiate Clinimix. 3. Be cautious with albumin. It may push him into fluid overload. 4. Agree with current antibiotic regimen. 5. Continue bronchial hygiene. 6. Agree with transfer to the ICU. 7. Recommend initiating end of life consultation. With his age, COPD, metastatic lung cancer, acute on chronic renal failure, acute hypoxemic respiratory failure, bilateral pneumonia, with severe decrease in performance status, his prognosis is extremely poor. cc: MD Jacques Dubois MD
[2018-11-18] MEDS: DULCOLAX PR SCH (20:01)
[2018-11-19] MEDS: MAXIPIME 1 GM in NS 50 ML IV SCH ×2 (00:33→12:30)
[2018-11-19] MEDS: ZYVOX 600 MG/D5W 600 MG/300 ML IVPB IV SCH ×2 (02:19→13:00)
[2018-11-19] MEDS: DUONEB (A & A) INH SCH ×6 (03:08→23:13)
[2018-11-19 04:35] LABS: ALLEN TEST YES; BE -3.3 mmoll (-3.0-3.0); BLOOD TYPE ARTERIAL; HCO3-(ACT) 22.3 mmoll (20.0-26.0); METHB 0.3 % (0.0-1.5); O2HB 95.3 % (95.0-99.0); PCO2(98.6) 35 mmHg (35-45); PO2(98.6) 94 mmHg (60-100); SAMPLE BLOOD; SAO2 95.6 % (95.0-100.0); THB 9.6 g/dL (11.5-17.4); pH(98.6) 7.39 (7.35-7.45)
[2018-11-19 04:36] LABS: MODALITY VENTIMASK
[2018-11-19 04:53] LABS: HEMATOCRIT 27.1 % (42.0-52.0); HEMOGLOBIN 8.9 g/dL (14.0-18.0); MCH 33.8 PG (27-31); MCHC 32.8 g/dL (33-37); MPV 10.6 FL (7.4-10.4); RBC 2.63 XMIL (4.7-6.1); RDW 16.6 % (11.5-14.5); WBC 4.81 X1000 (4.8-10.8)
[2018-11-19 05:32] LABS: CREATININE 2.1 mg/dL (0.7-1.2); POTASSIUM 3.7 mmol/L (3.5-5.1)
[2018-11-19] MEDS: PRILOSEC PO SCH (06:23)
[2018-11-19] MEDS: CLINIMIX E 4.25%-5% SOLUTION 1,000 ML IV SCH ×2 (06:24→23:03)
[2018-11-19 06:43] LABS: ALLEN TEST YES
--- NOTE | 2018-11-19 07:10 | Diag Imaging Result Doc PS360 ---
EXAM: CT THORAX W/O CONTRAST 11/18/2018 HISTORY: pneumonia TECHNIQUE: This exam was performed using automated exposure control, adjustment of mA or kV according to patient size, and/or use of iterative reconstruction technique. COMMENT: There is soft tissue emphysema present around the left hemithorax including posteriorly and the left axillary region. This was not the case at the time the previous study of 09/26/2018. There is a small left pleural effusion. This was also not present at the time the previous study. There are calcifications throughout the left hepatic lobe which were also present previously. There is some beam hardening artifact and motion artifact. There has been previous sternotomy. There are spondylotic changes in the thoracic spine. There is a small pneumothorax on the left. There is extensive subpleural emphysematous change bilaterally. There are patchy alveolar and groundglass opacities in both upper lobes. There is compressive atelectasis in the left lower lobe posteriorly. Most of this was not present at the time the previous study, however there were previously some atelectatic opacities in the right lower lobe which have apparently resolved. There are fractures of the left third, fourth, fifth, sixth, seventh, ninth ribs. These were not present at the time the previous study. IMPRESSION: Bilateral bronchopneumonia with left pleural effusion and pneumothorax. Multiple left rib fractures. This suggests the possibility of unsuspected trauma. Calcification in the liver most likely due to treatment of hepatic neoplasm. Electronically signed by Zeeshan Croft 11/19/2018 7:08 AM
--- NOTE | 2018-11-19 07:13 | EKG Report ---
Test Performed on : 11/19/2018 06:54:48 AM Test Reason : chest pain Blood Pressure : / mmHG Vent. Rate : 078 BPM Atrial Rate : 271 BPM P-R Int : 000 ms QRS Dur : 116 ms QT Int : 354 ms P-R-T Axes : 000 081 -71 degrees QTc Int : 403 ms Atrial flutter. with variable AV block. Incomplete right bundle branch block ST depression, consider subendocardial injury Nonspecific T wave abnormality Abnormal ECG When compared with ECG of 19-NOV-2018 06:54, (Unconfirmed) No significant change was found Unconfirmed Result
--- NOTE | 2018-11-19 07:30 | Diag Imaging Result Doc PS360 ---
EXAM: CHEST-PORTABLE 11/19/2018 HISTORY: pulmonary edema TECHNIQUE: AP portable at 0509 COMMENT: Compared to 11/18/2018 has been some slight improvement in pulmonary edema over the left lung. There is still fairly dense opacification of the right upper lobe. There is a tiny apical pneumothorax on the left. There is a fracture of the lateral fifth rib and possibly the sixth rib. Additional rib fractures were demonstrated on recent CT. There is soft tissue emphysema on the left. IMPRESSION: Improved pulmonary edema. Trace left pneumothorax and soft tissue emphysema. Rib fractures on the left. The possibility of pneumonia particularly in the right upper lobe cannot be excluded. Electronically signed by Zeeshan Croft 11/19/2018 7:28 AM
[2018-11-19] MEDS: MUCOMYST 20% INH SCH ×2 (07:34→19:27)
[2018-11-19] MEDS: MIRALAX PO SCH ×2 (07:59→20:51)
[2018-11-19] MEDS: MEGACE LIQUID PO SCH (08:00)
[2018-11-19] MEDS: OXY IR PO PRN (08:00)
[2018-11-19] MEDS: HEPARIN SUBQ SCH ×2 (08:05→20:51)
[2018-11-19] MEDS: FOLIC ACID PO SCH (08:06)
[2018-11-19] MEDS: IMDUR PO SCH (08:06)
[2018-11-19] MEDS: LOPRESSOR PO SCH ×2 (08:06→20:51)
[2018-11-19] MEDS: COLACE PO SCH ×2 (08:06→20:51)
[2018-11-19] MEDS: THERA M PLUS PO SCH (08:06)
--- NOTE | 2018-11-19 08:06 | EKG Report ---
Test Performed on : 11/18/2018 05:45:02 AM Test Reason : chest pain Blood Pressure : / mmHG Vent. Rate : 093 BPM Atrial Rate : 093 BPM P-R Int : 210 ms QRS Dur : 106 ms QT Int : 326 ms P-R-T Axes : 084 075 -67 degrees QTc Int : 405 ms Sinus rhythm. with 1st degree AV block. with premature atrial complexes. Possible Left atrial enlargement Incomplete right bundle branch block ST & T wave abnormality, consider inferior ischemia ST & T wave abnormality, consider anterolateral ischemia Abnormal ECG When compared with ECG of 17-NOV-2018 06:33, (Unconfirmed) Sinus rhythm. has replaced Atrial fibrillation. Criteria for Septal infarct are no longer present Unconfirmed Result
[2018-11-19] MEDS: CARDIZEM CD PO SCH (08:10)
--- NOTE | 2018-11-19 08:10 | EKG Report ---
Test Performed on : 11/17/2018 06:33:10 AM Test Reason : chest pain Blood Pressure : / mmHG Vent. Rate : 098 BPM Atrial Rate : 113 BPM P-R Int : 000 ms QRS Dur : 104 ms QT Int : 344 ms P-R-T Axes : 000 056 -08 degrees QTc Int : 439 ms Atrial fibrillation. Incomplete right bundle branch block Septal infarct , age undetermined ST & T wave abnormality, consider inferior ischemia ST & T wave abnormality, consider anterolateral ischemia Abnormal ECG When compared with ECG of 16-NOV-2018 08:21, Septal infarct is now present T wave inversion now evident in Lateral leads QT has shortened Unconfirmed Result
--- NOTE | 2018-11-19 09:26 | NEPHROLOGY PROGRESS NOTE ---
DATE: 11/19/2018 SUBJECTIVE: The patient is sitting up in bed. He is somewhat confused, wanting to know why his family cannot see him. He is really unable to describe why he is in the hospital. OBJECTIVE: Vital Signs: Temperature 97.9 degrees, pulse 72, respiratory rate 16, blood pressure 124/60. Intake 2.5 L, output 4.4 L via Peck catheter. General: This is an elderly gentleman sitting up in bed. He is awake and alert. He is confused and mildly agitated. HEENT: Normocephalic, atraumatic. His pupils are reactive. Conjunctivae are pink. Oral mucosa appears dry. Dentition poor. Neck: Supple without JVD. Cardiovascular: Reveals a regular rate and rhythm. There is no murmur or gallop appreciated. Pulmonary: He has equal excursion. He has some coarse rhonchi and crackles to the right. Abdomen: Soft, with positive bowel sounds. Genitourinary: He has a Peck catheter. Integumentary: Skin is thin, warm and dry with ecchymoses noted. LABORATORY DATA: WBC of 4.8, hemoglobin 8.9. Sodium 141, potassium 3.7, CO2 of 21, creatinine 2.1 (2.3, 2.2). ASSESSMENT AND PLAN: 1. Acute overlying chronic kidney disease. He has had some modest improvement with renal function over the weekend. He has had significant urine output with diuresis over the last 24 hours. We will make no changes to his current regimen. Continue to monitor. 2. Electrolytes, acid-base balance. These are acceptable. 3. Anemia. Continue to monitor. He has had some modest decline with his hemoglobin over the course of the hospitalization. He did have a traumatic left pneumothorax status post chest tube. 4. Stage IV colon cancer. Dr. Grissom continues to follow. 5. Hypoxemic respiratory failure. The patient again has had excellent response to diuretic therapy. He is on cefepime and Zyvox antibiotic coverage. No changes are needed. Dictated by LIZBET Gale for Felix Colvin MD Face to face encounter, data reviewed, discussed with Yen Dunne on 11/19/18. I agree with the above assessment and plan of care. cc: MD Jacques Vizcarra MD [facility]
--- NOTE | 2018-11-19 10:16 | HEMO/ONC CONSULTATION ---
DATE: 11/19/2018 CHIEF COMPLAINT: Further evaluation and management of the patient's colon cancer. HISTORY OF PRESENT ILLNESS: Ms. Bautista is a 73-year-old male who presented to the emergency department on 11/14/2018. The patient says that someone was helping him down the stairs in his wheelchair. The patient says that they had fallen and the person helping him down the stairs in his wheelchair fell on top of him. The patient came in complaining of increased chest pain and shortness of breath. The patient also while in the emergency department was in atrial fibrillation with RVR, had bilateral wheezing with tachypnea. While in the emergency room, he was found to have a pneumothorax and a chest tube was placed at that time. The patient did get a good amount of relief once the chest tube was placed. The patient was admitted at that time for the pneumothorax, atrial fibrillation with RVR as well as for possible pneumonia. Mr. Bautista is well known to us in our clinic where he follows up for his metastatic colon cancer. The patient was diagnosed with poorly to moderately differentiated adenocarcinoma, diffuse liver metastasis. The patient has found during the colonoscopy to have a colon mass at occupying 50% to 70% of the circumference. He had lost 60 pounds and had abnormal LFT's. The patient was started on 5FU and avastin on 07/03/2018. During this time he gained weight, LFT's normalized and restaging CT scan revealed disease was improving. The patient received his last treatment of chemo on 11/12/2018. PAST MEDICAL HISTORY: 1. Coronary artery disease status post coronary bypass graft. 2. Moderate mitral regurgitation. 3. Pulmonary artery hypertension. 4. Colon cancer. 5. Hypertension. 6. Chronic kidney disease. 7. Atrial fibrillation. 8. Bladder surgery for bladder cancer. 9. Benign brain tumor. 10. Inguinal hernia. PAST SURGICAL HISTORY: 1. Coronary artery bypass graft. 2. Bladder surgery. 3. Back surgery. 4. Inguinal hernia repair. SOCIAL HISTORY: Denies any alcohol or illicit drug use. The patient does smoke about a pack a day. ALLERGIES: Tylenol. HOME MEDICATIONS: 1. ProAir HFA. 2. Eliquis. 3. Lanoxin. 4. Diltiazem. 5. Folic acid. 6. Lasix. 7. Glipizide. 8. Ibuprofen. 9. Combivent Respimat inhaler. 10. Ipratropium albuterol sulfate. 11. Icar C. 12. Isordil. 13. Imdur. 14. Lidoderm patch. 15. Megace liquid. 16. Lopressor. 17. Mirtazapine. 18. Morphine IR. 19. Centrum Silver. 20. Omeprazole. 21. Oxycodone. 22. MiraLAX. REVIEW OF SYSTEMS: As per HPI. PHYSICAL EXAM: Vital Signs: Temperature 97.9 degrees, heart rate 72, respiratory rate 16, blood pressure 124/60, sat 98% on nasal cannula. General: The patient is awake, lying in bed. Neck: Supple. Trachea midline. No JVD. Lymph Node Survey: No palpable lymphadenopathy. Chest: Bilateral breath sounds with rhonchi bilaterally. Cardiovascular: S1, S2. Regular rate and rhythm. Abdomen: Soft, nontender. Bowel sounds present all 4 quadrants. Skin: Warm dry and intact. Multiple bruising noted. Neurologic: Confused. LABORATORY DATA: White cell count 4.81, hemoglobin 8.9, hematocrit 27.1, platelets 194,000. Potassium 3.7, BUN 99, creatinine 2.1. ASSESSMENT AND PLAN: 1. Poorly to moderately differentiated colonic adenocarcinoma: The patient received 5FU at 50% of dose. Avastin was held due to increased proteinuria. He last received chemotherapy on 11/12/2018. At this time, wait on the patient to get better. Just continue to monitor. 2. Chronic obstructive pulmonary disease: Continue recommendations per primary medical team in Pulmonology. 3. Pneumonia: Continue antibiotics as ordered per primary medical team and Pulmonology. 4. Left pneumothorax status post chest tube placement: The patient's tube was removed. Continue to monitor closely. 5. Acute kidney injury on chronic kidney disease: Baseline creatitine is 2.0. Continue recommendations per primary medical team and Nephrology. 6. Atrial fibrillation: Continue recommendations per primary team and Cardiology. 7. Coronary artery disease status post coronary artery bypass graft: Aware. 8. Anemia: Continue to monitor. Hemoglobin and hematocrit have been stable. 9. Deep venous thrombosis prophylaxis: Continue heparin as ordered. Plan of care discussed with Dr. Grissom. Dictated by LIZBET Hebert for Hernan Grissom MD Patient seen and examined. As above. Patient admitted with pneumothorax status post rib fracture and fall. He also was noted to have atrial fibrillation with rapid ventricular response and acute on chronic kidney failure (baseline creatinine is 2.0). Patient known to me due to metastatic colon cancer. At presentation he had diffuse liver metastasis, had lost 60 pounds and had elevated LFTs. He has been on treatment for about 5 months. During this time gained about 4 pounds, LFTs normalized and restaging scans done about 2 months ago revealed some improvement in his disease. However over the last 2 months he was admitted for pneumonia and now with this current condition due to which she has not been able to receive his therapy on time. He is lost some weight. At present he is slightly confused in terms of date and year. He is oriented to place and person. He is hungry and wants to eat. Nurse reports that he had no trouble swallowing his pills. Proceed with protein shakes. For now hold off on EGD to his breathing issues resolve. Discussed with Dr. Hong. I will try to discuss DNR once his confusion resolved. Hernan Grissom M.D. cc: LIZBET Hebert MD Gregory S. Cheatham, MD [facility]
[2018-11-19] MEDS: LIPOSYN 20% 250 ML IV SCH (10:29)
[2018-11-19] MEDS: PROTONIX IV SCH ×2 (11:36→23:03)
[2018-11-19] MEDS ORDERED: HALDOL IM ONE (11:51)
--- NOTE | 2018-11-19 14:00 | PULMONOLOGY PROGRESS NOTE ---
DATE: 11/19/2018 SUBJECTIVE: The patient has slightly less work of breathing. He continued to have audible rhonchi. OBJECTIVE: Vital Signs: The patient is afebrile. Blood pressure 121/54, heart rate 78, respiratory rate 21, oxygen saturation 95% on nasal cannula. HEENT: Pupils are equal and reactive. Oropharynx appears clear. Neck: Is supple. Chest: Reveals bilateral rhonchi. Cardiac exam: S1-S2. Abdomen: Is soft. Extremities: Are without edema. LABORATORIES: White blood count 4.8, hemoglobin 8.9, platelet count 194,000. Sodium 141, potassium 3.7, chloride 104, bicarbonate 21, BUN 99, creatinine 2.1. ProBNP is 19,877. CT scan of the chest yesterday revealed small left effusion, multiple rib fractures, bilateral pneumonia and tiny apical pneumothorax. IMPRESSION: A 73-year-old with 1. Acute hypoxemic respiratory failure. 2. Chronic obstructive pulmonary disease. 3. Ongoing tobacco use. 4. Multiple rib fractures. 5. Metastatic colon cancer. 6. Protein calorie malnutrition with abnormal weight loss. 7. Bilateral pneumonia. RECOMMENDATIONS: 1. Continue Clinimix. Would avoid p.o. intake at this juncture. An aspiration event would likely cause him to need to be intubated. 2. We will add lipids to his current regimen. 3. Continue current antibiotics. He has 1 of 2 cultures which is currently growing a gram- positive cocci. 4. Continue bronchial hygiene. 5. Continue ICU monitoring. He remains critically ill. cc: MD Jacques Dubois MD
--- NOTE | 2018-11-19 15:23 | Diag Imaging Result Doc PS360 ---
EXAM: CHEST-PORTABLE HISTORY: Chest Pain TECHNIQUE: Portable chest single view COMPARISON: 5:09 AM FINDINGS: Interval increase in density of the mid right lung infiltrates. No improvement in the left infiltrates. No change in the tiny left apical pneumothorax. No other interval change. IMPRESSION: Worsening right lung infiltrates Electronically signed by Rudy Agrawal 11/19/2018 3:21 PM
--- NOTE | 2018-11-19 15:57 | EKG Report ---
Test Performed on : 11/19/2018 2:09:50 PM Test Reason : Chest Pain Blood Pressure : / mmHG Vent. Rate : 075 BPM Atrial Rate : 075 BPM P-R Int : 210 ms QRS Dur : 108 ms QT Int : 420 ms P-R-T Axes : 095 064 034 degrees QTc Int : 469 ms Sinus rhythm. with 1st degree AV block. with occasional premature ventricular complexes. ST & T wave abnormality, consider anterior ischemia Abnormal ECG When compared with ECG of 19-NOV-2018 06:54, (Unconfirmed) Sinus rhythm. has replaced Atrial flutter. Incomplete right bundle branch block is no longer present ST no longer depressed in Inferior leads QT has lengthened Unconfirmed Result
--- NOTE | 2018-11-19 19:24 | PROGRESS NOTE ---
DATE: 11/19/2018 SUBJECTIVE: The patient was noted to be awake, but confused this morning. He made several attempts to get out of bed. OBJECTIVE: Vital signs: Temperature 98.4 degrees, blood pressure 112/59, heart rate 73, respirations 25, O2 saturations 95% on 5 L nasal cannula, intake 2.5 L, output 4.4 L. General: This is a chronically ill-appearing elderly male sitting up in bed in no acute distress. HEENT: Head normocephalic, atraumatic. Skin: Multiple areas of bruising on the patient's arms and legs. Heart: S1, S2 normal. Lungs: Coarse breath sounds with crackles bilaterally. Abdomen: Positive bowel sounds. Soft, nontender, nondistended. Extremities: 1+ edema bilaterally. Neurologic: The patient is awake and oriented to person and place. He is able to move all 4 extremities. LABORATORY DATA: White blood cell count 4.8, hemoglobin 8.9, hematocrit 27, platelets 194,000. Sodium 141, potassium 3.7, chloride 104, CO2 21, BUN 99, creatinine 2.1, glucose 197. Chest x-ray shows worsening right lung infiltrate. ASSESSMENT AND PLAN: 1. Acute hypoxemic respiratory failure. The patient has pneumonia. We will continue to treat with IV antibiotics. Continue with supplemental oxygen. 2. Bilateral lobe pneumonia. Continue with antibiotic therapy. 3. Dysphagia. GI has seen the patient and they plan on doing endoscopy. 4. Traumatic left pneumothorax status post chest tube placement. Stable. The chest tube was removed over the weekend. 5. Stage IV colon cancer. Aware. Dr. Grissom is following. 6. Acute kidney injury on chronic kidney disease. Stable. Nephrology is following. 7. Atrial fibrillation. The patient is rate controlled. 8. Delirium with possible underlying dementia. Continue to monitor for improvement. Continue to treat the underlying infection. 9. Constipation. Continue with laxative therapy. 10. Coronary artery disease status post coronary artery bypass graft. Aware. 11. Nutrition. The patient is n.p.o. at this time. He is scheduled to undergo endoscopy tomorrow. 12. Disposition. The patient has multiple medical problems. He remains a full code at this time. Palliative Care has been consulted to assist with goals of care. cc: MD Jacques Ding MD [facility]
[2018-11-19] MEDS: DULCOLAX PR SCH (21:00)
[2018-11-19] MEDS: SODIUM CHLORIDE 0.9% INJ SCH (23:03)
[2018-11-20] MEDS: MAXIPIME 1 GM in NS 50 ML IV SCH ×2 (01:35→14:23)
[2018-11-20] MEDS: ZYVOX 600 MG/D5W 600 MG/300 ML IVPB IV SCH ×2 (02:05→14:24)
[2018-11-20] MEDS: DUONEB (A & A) INH SCH ×6 (03:19→23:34)
--- NOTE | 2018-11-20 03:45 | GASTROENTEROLOGY CONSULTATION ---
DATE: 11/19/2018 ATTENDING PHYSICIAN: Dr. Carranza. PRIMARY CARE PHYSICIAN: Agapito Mtz. PRIMARY ONCOLOGIST: Dr. Grissom. REASON FOR CONSULTATION: Dysphagia. HISTORY OF PRESENT ILLNESS: Mr. Bautista is a 73-year-old male who was admitted on 11/14/2018 after a fall. He developed a pneumothorax and a chest tube was placed. He is being currently treated for a pneumothorax, atrial fibrillation, and pneumonia. The patient has a history of metastatic colon cancer. He is currently getting treatment with Dr. Grissom. The last one was last Monday. The patient has been complaining of trouble swallowing. In the last 3 months, it has gotten worse. In fact, he had an EGD done 2 months ago at [facility] by a gastroenterology but he does not recall the results. He does not recall his throat being stretched. The patient is having trouble with liquids as well. The patient is also feeling constipated. Last bowel was more than 5 days ago. PAST MEDICAL HISTORY: Coronary artery disease, status post CABG, moderate mitral regurgitation, pulmonary arterial hypertension, colon cancer - metastatic and poorly differentiated, hypertension, chronic kidney disease, atrial fibrillation, bladder surgery for bladder cancer, benign brain tumor, inguinal hernia. PAST SURGICAL HISTORY: Coronary artery bypass graft, bladder surgery, back surgery, inguinal hernia repair. SOCIAL HISTORY: Denies alcohol or illicit drug abuse. He does smoke about a pack a day. ALLERGIES: Tylenol. MEDICATIONS IN THE HOSPITAL: Include Dulcolax 10 mg per rectal at bedtime, heparin, Mucomyst, albuterol/ipratropium, Cardizem 360 mg every day, Colace 100 mg p.o. b.i.d., folic acid 1 mg p.o. daily, isosorbide mononitrate 30 mg once daily, fat emulsion at 10.4 mL per hour, cefepime b.i.d., Megace 400 mg p.o. daily, metoprolol 25 mg p.o. b.i.d., multivitamin once daily,. omeprazole 40 mg daily, Zofran 4 mg IV every 4 hours as needed, oxycodone IR 30 mg p.o. q.8 hours as needed, MiraLAX 17 g p.o. b.i.d., linezolid 600 mg p.o. b.i.d. DIET: The patient is currently NPO except medications and ice chips. REVIEW OF SYSTEMS: Denies any fevers, rigors, or chills. Does complain of chest discomfort. He had a pneumothorax recently. The patient had a pneumothorax and a chest tube placed which was removed. He has atrial fibrillation but he denies any new palpitations. He does have a history of arthritis. Does complain of trouble swallowing and constipation. He denies any neurologic complaints. PHYSICAL EXAMINATION: Vital Signs: Temperature of 99.5 degrees, pulse rate of 77, respiratory rate of 15, blood pressure 126/54, saturating 100% on 5 L per minute, body weight of 136 pounds 2 ounces. BMI 17.5 kg/m2. General Appearance: Thinly built, lying in bed, in no acute distress. HEENT: Pale conjunctivae. No icterus. Pupils equal, reactive to light and accommodation. Neck: Supple. Abdomen: Soft, nondistended. No guarding. No rebound. Extremities: No cyanosis or clubbing. Neurologic: Alert, awake, and oriented to time, place, and person. He answers all questions. LABS: Hemoglobin and hematocrit are 8.9 and 27.1, white count of 4.81, platelet count of 194,000, MCV of 103.0. Sodium of 141, potassium 3.7, chloride 104, bicarb 21, anion gap 16, BUN of 99, creatinine of 2.1, glucose of 47, calcium is 9. Troponin is 0.197. Albumin of 3.3. ABG showing pH 7.39, pCO2 of 35, PO2 94. This is on Ventimask, 40% FiO2. Sputum culture is pending. Blood culture is pending from yesterday. Chest x-ray done today showed improved pulmonary edema, trace left pneumothorax and soft tissue emphysema, rib fractures on the left. Possibility of pneumonia in the right upper lobe cannot be excluded. Chest CT done on 11/18/2018 showed bilateral bronchopneumonia with left pleural effusion, pneumothorax, multiple left rib fractures, the possibility of unsuspected trauma, calcification in the liver most likely due to treatment of hepatic neoplasm. Abdominal x-ray last was done on 11/16/2018 which showed evidence of nonspecific abdomen, multilevel degenerative arthropathy throughout the spine. Last CT of the abdomen and pelvis done on 09/26/2018 which showed COPD, extensive pulmonary scarring, pneumonia in the right lower lobe, calcified liver masses from prior metastasis, no new liver masses, constipation with rectal fecal stool impaction, and stable abdominal aortic aneurysm. IMPRESSION AND PLAN: 1. Dysphagia. 2. Metastatic poorly differentiated colon cancer. He has been on 5-FU. His Avastin has been held due to increased proteinuria. 3. Liver metastasis with calcification. 4. Chronic obstructive pulmonary disease and lung scarring, lung fibrosis, chronic smoker. 5. Pneumonia. He is on antibiotics. 6. Recent left-sided pneumothorax and left-sided rib fractures after a fall, and the chest tube has been removed. 7. Respiratory failure, which is improving. 8. Atrial fibrillation with rapid ventricular response, which is improving. 9. Acute kidney injury on chronic kidney disease. Being followed by nephrology. 10. Anemia. Continue to follow hemoglobin and hematocrit, and transfuse as needed. 11. Coronary artery disease, status post grafting. Aware. 12. Deep venous thrombosis prophylaxis with heparin. 13. Gastrointestinal prophylaxis. We will switch to Protonix intravenous once daily. We will discontinue his omeprazole. 14. Bowel regimen. We will start him with MiraLAX twice daily and Dulcolax twice daily. 15. We will schedule him for an esophagogastroduodenoscopy tomorrow with Dr. Soler. The risks, benefits, indications, and alternatives were discussed with the patient and all of his questions were answered. His risk of procedure is slightly high because of multiple medical comorbid conditions. The patient is having difficulty tolerating liquids at this time. 16. Further recommendations to follow pending hospital course. cc: MD Agapito Davison MD Gregory S. Cheatham, MD MTDD
[2018-11-20 04:34] LABS: ALLEN TEST YES; BE -3.8 mmoll (-3.0-3.0); BLOOD TYPE ARTERIAL; METHB 0.1 % (0.0-1.5); O2(CT) 13.8 mL/dL (15.0-23.0); O2HB 97.1 % (95.0-99.0); PCO2(98.6) 33 mmHg (35-45); PO2(98.6) 142 mmHg (60-100); SAMPLE BLOOD; SAO2 98.6 % (95.0-100.0); THB 9.9 g/dL (11.5-17.4)
[2018-11-20 04:35] LABS: MODALITY CANNULA
[2018-11-20 04:58] LABS: BASO# 0.01 X1000 (0.0-0.2); BASO% 0.2 % (0.0-0.8); EOS# 0.04 X1000 (0.0-0.7); EOS% 0.7 % (0.0-10.0); HEMATOCRIT 27.2 % (42.0-52.0); HEMOGLOBIN 8.8 g/dL (14.0-18.0); IMM GRAN% 3.7 % (0.0-0.5); LYMPH# 0.81 X1000 (1.2-3.4); LYMPH% 15.1 % (20.5-51.1); MCH 33.3 PG (27-31); MCHC 32.4 g/dL (33-37); MONO# 0.64 X1000 (0.11-0.59); MONO% 11.9 % (1.7-9.3); MPV 10.6 FL (7.4-10.4); NEUT# 3.68 X1000 (1.4-6.5); NEUT% 68.4 % (42.2-75.2); PLT 184 X1000 (130-400); RBC 2.64 XMIL (4.7-6.1); RDW 16.5 % (11.5-14.5); WBC 5.38 X1000 (4.8-10.8)
[2018-11-20 05:42] LABS: ALBUMIN 3.1 g/dL (3.5-5.0); CALCIUM 9.1 mg/dL (8.8-10.2); CREATININE 1.8 mg/dL (0.7-1.2); PHOSPHORUS 3.2 mg/dL (2.7-4.5); POTASSIUM 4.9 mmol/L (3.5-5.1)
[2018-11-20 06:06] LABS: LYMPHS 17 % (21-51); MONO 12 % (1-9); SEGS 71 % (42-75)
--- NOTE | 2018-11-20 06:40 | Diag Imaging Result Doc PS360 ---
EXAM: CHEST-PORTABLE HISTORY: pulmonary edema TECHNIQUE: Portable chest single view COMPARISON: 11/19/2018 FINDINGS: The lungs are well expanded. There are dense infiltrates in the upper right lung and in the lower left lung. Sternal wires are present. The heart is not enlarged. No pleural effusions identified. No change in the right sided portacatheter. IMPRESSION: No interval worsening Electronically signed by Rudy Agrawal 11/20/2018 6:37 AM
--- NOTE | 2018-11-20 07:29 | NEPHROLOGY PROGRESS NOTE ---
DATE: 11/20/2018 SUBJECTIVE: He states he is feeling better. He is sitting quietly but awake. Answers all my questions. OBJECTIVE: Vital Signs: Blood pressure 138/71, heart rate 99 respiration 13. Afebrile. Intake 3.3 L. Output 1.6 L. General: No acute distress. Chronically ill-appearing, frail, cachectic. Skin: Warm and dry. Neck: Neck veins are not distended. Heart: Regular. No gallops. Lungs: Equal with crackles bilaterally. Abdomen: Soft, nontender. Bowel sounds present. Extremities: No edema, clubbing or cyanosis. IMPRESSION: Acute kidney injury, overlying chronic kidney disease. Baseline creatinine is around 1.6. Creatinine has been improving since admission. BUN is higher, but he is receiving IV nutrition. No changes required. cc: MD Jacques Vizcarra MD
[2018-11-20] MEDS: MUCOMYST 20% INH SCH ×2 (08:06→19:39)
--- NOTE | 2018-11-20 08:57 | HEMO/ONC PROGRESS NOTE ---
DATE: 11/20/2018 SUBJECTIVE: The patient says he is feeling better. The patient has no new complaints at this time. OBJECTIVE: Vital Signs: Temperature 98.6 degrees, heart rate 99, respiratory rate 13, blood pressure 130/71, oxygen saturation 100% on nasal cannula. General: The patient is awake, lying in bed, no acute distress noted. HEENT: Anicteric. PERRLA. Mucous membranes dry. Cardiovascular: S1, S2. Regular rate and rhythm. Chest: Bilateral breath sounds diminished bilaterally. Abdomen: Soft, nontender. Bowel sounds present in all 4 quadrants. Neurologic: Alert and oriented x2. No focal deficits noted. LABORATORY DATA: White cell count 5.3, hemoglobin 8.8, hematocrit 27.2, platelets 184,000. Potassium 4.9, BUN is 106, creatinine 1.8. ASSESSMENT AND PLAN: 1. Poorly to moderately differentiated colonic adenocarcinoma: At this time, we will monitor. One patient back to baseline. we will discuss further treatment options in the clinic. 2. Chronic obstructive pulmonary disease: Continue orders per primary team and pulmonology. 3. Pneumonia: Continue antibiotics ordered per primary team and pulmonology. 4. Left pneumothorax, status post chest tube placement: Continue to monitor. Continue orders per pulmonology. 5. Acute kidney injury on chronic kidney disease: Creatinine back to baseline. Continue orders per nephrology. 6. Deep venous thrombosis prophylaxis: Continue heparin as ordered. 7. Supportive care: Continue with protein shakes 3 times daily. Continue the patient to get up as much as possible. Plan of care discussed with Dr. Grissom. Dictated by LIZBET Hebert for Hernan Grissom MD As above. Patient feels much better. Creatinine is back to his baseline. Continue current management for pneumothorax/pneumonia/COPD. We will continue to discuss DNR. Hernan Grissom M.D. cc: MD Jacques Davison MD [facility]
[2018-11-20] MEDS: MIRALAX PO SCH ×3 (09:16→20:39)
[2018-11-20] MEDS: IMDUR PO SCH (09:17)
[2018-11-20] MEDS: MEGACE LIQUID PO SCH (09:17)
[2018-11-20] MEDS: LIPOSYN 20% 250 ML IV SCH (09:17)
[2018-11-20] MEDS: HEPARIN SUBQ SCH ×2 (09:17→20:02)
[2018-11-20] MEDS: CLINIMIX E 4.25%-5% SOLUTION 1,000 ML IV SCH ×2 (09:17→22:33)
[2018-11-20] MEDS: CARDIZEM CD PO SCH (09:17)
[2018-11-20] MEDS: LOPRESSOR PO SCH ×2 (09:18→20:01)
[2018-11-20] MEDS: THERA M PLUS PO SCH (09:18)
[2018-11-20] MEDS: COLACE PO SCH ×2 (09:18→20:01)
[2018-11-20] MEDS: FOLIC ACID PO SCH (09:18)
--- NOTE | 2018-11-20 10:46 | PROGRESS NOTE ---
DATE: 11/20/2018 HISTORY OF PRESENT ILLNESS: Mr. Bautista is followed by Dr. Agapito Mtz and presented on 11/14/2018 with chest pain. He is a 73-year-old with history of COPD, congestive heart failure, colon cancer, but was currently receiving chemotherapy per Dr. Grissom. He presented to the emergency room after falling. States that his grandson is pushing him up the stairs in a wheelchair and they hit a wet spot on the step, causing them to fall. He states that he flipped in his wheelchair and grandson landed on his chest. On arrival to the emergency room, he was, of course, short of breath, had bilateral wheezing, tachypnea with a respiratory rate of 27, and found to be in atrial fibrillation with rapid ventricular rate. Chest tube was placed in the emergency room, and he got quite a bit of relief after that chest tube. PAST MEDICAL HISTORY: Once again, review of past medical history: 1. Coronary artery disease status post coronary artery bypass graft with CELAYA to LAD, saphenous vein graft to the diagonal. 2. Moderate mitral regurgitation. 3. Pulmonary arterial hypertension. Pressure is 45 to 50. 4. Colon cancer, currently receiving chemotherapy per Dr. Grissom. 5. Hypertension. 6. Chronic kidney disease. 7. Atrial fibrillation. 8. Bladder surgery for bladder cancer. 9. Benign brain tumor. 10. Inguinal hernia. PAST SURGICAL HISTORY: 1. Coronary artery disease. 2. Bladder surgery. 3. Back surgery. 4. Inguinal hernia repair. OBJECTIVE: General: Today feels much better stronger, wanting to sit up on the edge of the bed. On exam today, comfortable. Vital signs: His temperature is 98.6 degrees, pulse 100, respirations 20, blood pressure 138/70. Eyes: Pupils are equal and round. Lungs: Clear in all lung sena. Cardiovascular: Regular rhythm and rate without murmur or S3. Abdomen: Soft. Skin: Warm and dry. Urine output: 2500 mL. DIAGNOSTIC STUDIES: CT of the chest on the : Bilateral bronchopneumonia with left pleural effusion and pneumothorax, multiple left rib fractures suggest possibility of trauma. ASSESSMENT AND PLAN: 1. Acute hypoxemic respiratory failure. The patient status post bilateral lobe pneumonia. Continue present antibiotics. He is improving. Continue supplemental oxygen. 2. Presented with traumatic left pneumothorax. Status post chest tube placement, removed about 3 days ago or 4 days ago. 3. Dysphagia. Gastroenterology has been seeing. They did an endoscopy. 4. Stage IV colon cancer. Dr. Jaciel scales. 5. Acute kidney injury on chronic kidney injury. Renal function I think is improving. 6. Atrial fibrillation. Rate is controlled. 7. Delirium, possible underlying dementia. This is much better. He would like to sit up in the bed and seems awake and alert. 8. Constipation. 9. Coronary artery disease status post coronary artery bypass graft. DISPOSITION: The patient remains full code, and I think he is improving. His aim is to try and go home. REVIEW OF HIS ORDERS: I do not see any change at this point. The patient is on heparin 5000 units subcutaneous q.12 h., acetylcysteine inhaler b.i.d., albuterol/ipratropium inhaler q.12 h. p.r.n. He is getting 3 mL inhalation q.4 h. He is on Clinimix. I think they want to hold him n.p.o. another day. He is getting Cardizem CD 360 mg a day, Colace 100 mg b.i.d., folic acid 1 mg daily, isosorbide mononitrate 30 mg a day, cefepime 1 g q.12 h. Megace 400 mg a day, Lopressor 25 mg b.i.d., multivitamin 1 a day, and Protonix 40 mg IV q.12 h., MiraLAX 17 g b.i.d., linezolid 600 mg IV q.12 h. cc: MD Jacques De Jesus MD
[2018-11-20] MEDS: SODIUM CHLORIDE 0.9% INJ SCH ×2 (11:20→22:33)
[2018-11-20] MEDS: PROTONIX IV SCH ×2 (11:20→22:33)
[2018-11-20] MEDS: OXY IR PO PRN ×2 (11:25→19:11)
--- NOTE | 2018-11-20 18:30 | PULMONOLOGY PROGRESS NOTE ---
DATE: 11/20/2018 SUBJECTIVE: The patient is awake, alert and conversant. He is significantly stronger than yesterday. His work of breathing has diminished. OBJECTIVE: Vital signs: The patient has been afebrile for the last 24 hours. Blood pressure 140/71, heart rate 95, respiratory rate 16, oxygen saturation 100% on 5 L per nasal cannula. HEENT: Pupils are equal and reactive. Oropharynx appears clear. Neck is supple. Chest reveals coarse rhonchi bilaterally. Accessory muscle use has diminished. Cardiac exam: S1, S2. Abdomen is soft. Extremities are without edema. LABORATORY DATA: White blood count 5.38, hemoglobin 8.8, platelet count 184,000. Sodium 136, potassium 4.9, chloride 105, bicarbonate 17, BUN 106, creatinine 1.8. Arterial blood gas reveals pH 7.40, pCO2 of 33, pO2 of 142. Microbiology: Sputum culture reveals sparse growth. DIAGNOSTIC DATA: Chest x-ray reveals bilateral pneumonia which is unchanged. IMPRESSION: 1. A 73-year-old with acute hypoxemic respiratory failure. 2. Chronic obstructive pulmonary disease. 3. Ongoing tobacco use. 4. Multiple rib fractures. 5. Dysphagia. 6. Metastatic colon cancer. 7. Protein-calorie malnutrition. DISCUSSION: A 73-year-old with problem list above. He appears marginally improved today. Infiltrates in lungs are suspicious for aspiration, given his clear chest x-ray on presentation. He will continue Clinimix and lipids today. We will schedule a routine barium swallow tomorrow, and if he does well we will advance diet as tolerated. RECOMMENDATIONS: 1. Continue Clinimix and lipids today. 2. Continue antibiotics for bilateral pneumonia. 3. Routine barium swallow tomorrow. 4. Additional recommendations pending hospital course. cc: MD Jacques Dubois MD
[2018-11-20] MEDS: DULCOLAX PR SCH (20:01)
[2018-11-20] MEDS ORDERED: MILK OF MAGNESIA PO ONE (21:00)
--- NOTE | 2018-11-20 23:26 | PROVIDER PROGRESS NOTE ---
Progress Note SUBJECTIVE: No acute overnight events. No N/V/F. Mild SOB that is improving. Pleuritic CP on left side. No GERD and abdominal pain. Tolerating full liquids. He denies dysphagia at this time. Per RN, patient had trouble swallowing large pills. OBJECTIVE: Last Vital Signs Temp 98.7 F 11/20/18 19:19 Pulse 95 H 11/20/18 21:02 Resp 16 11/20/18 21:02 BP 137/75 11/20/18 21:02 Pulse Ox 98 11/20/18 21:02 Height 6 ft 2 in Weight 134 lb 6.4 oz GEN: awake, alert, NAD, chronic ill-appearing HEENT: anicteric, MMM NECK: supple, no JVD CV: RRR, no mrg PULM: coarse BS b/l ABD: soft NT/ND EXT: thin, no cce, WWP NEURO: nonfocal LABS: 11/20/18 11/20/18 04:15 04:15 WBC 5.38 Hgb 8.8 L Plt Count 184 Sodium 136 Potassium 4.9 D Chloride 105 Carbon Dioxide 17 L BUN 106 H Creatinine 1.8 H Glucose 212 H Albumin 3.1 L A/P: Mr. Bautista is a 73 year old man with COPD, pHTN, CAD s/p CABG, CKD, AFIB, and metastatic colon cancer with liver mets who presented after a fall found to have pneumothorax, PNA, and acute hypoxic respiratory failure s/p chest tube. Also noted, anemia without overt GI bleeding and JORGE on CKD. GI consulted for dysphagia. # Dysphagia: continue full liquid, continue PPI, will follow to determine need for EGD; dysphagia precautions # Metastatic colon cancer: followed by Dr. Grissom # PNA: on abx; defer to primary # Left PTX: s/p chest tube removal # AFIB: rate controlled # Anemia: no overt bleeding; continue to trend daily # CAD: no CP # Severe protein calorie malnutrition: f/u nutrition recs Will follow with you.
[2018-11-21] MEDS: ZYVOX 600 MG/D5W 600 MG/300 ML IVPB IV SCH ×2 (01:46→13:45)
[2018-11-21] MEDS: MAXIPIME 1 GM in NS 50 ML IV SCH ×2 (01:48→13:45)
[2018-11-21] MEDS: DUONEB (A & A) INH SCH ×6 (03:31→23:24)
[2018-11-21] MEDS: MUCOMYST 20% INH SCH ×2 (08:08→19:45)
--- NOTE | 2018-11-21 08:36 | HEMO/ONC PROGRESS NOTE ---
DATE: 11/21/2018 SUBJECTIVE: Patient continues to slowly improve. Shortness of breath continues to slowly improve as well. OBJECTIVE: Vital Signs: Temperature 97.6 degrees, heart rate 100, respiratory rate 20, blood pressure 137/98, O2 sat 96% on nasal cannula. General: Patient is awake, lying in bed, no acute distress noted. HEENT: Anicteric. Pupils PERRLA. Mucous membranes dry. Cardiovascular: S1, S2. Regular rate and rhythm. Chest: Bilateral breath sounds diminished bilaterally. Abdomen: Soft, nontender. Bowel sounds present in all 4 quadrants. Neurological: Alert and oriented x3. No focal deficits noted. ASSESSMENT AND PLAN: 1. Poorly to moderately differentiated colonic adenocarcinoma: Once patient is back to baseline, we can discuss further treatment options in the clinic. 2. Chronic obstructive pulmonary disease. Continue recommendations per primary team and Pulmonology. 3. Pneumonia: Continue antibiotics as ordered per Pulmonology and primary medical team. 4. Acute kidney injury on chronic kidney disease: Continue orders per Nephrology. 5. Deep venous thrombosis prophylaxis: Continue heparin as ordered. 6. Dysphagia: Barium swallow has been ordered. Continue recommendations per primary team and Gastroenterology. Plan of care discussed with Dr. Grissom. Dictated by LIZBET Hebert for Hernan Grissom MD Patient seen and examined. As above. Barium swallow reveals severe esophageal dysmotility. Await GI recommendations. I have discussed with the patient that unless his condition improves I cannot offer him any further therapy. He appears to be still interested in getting back on therapy. Continue pulmonary management. Chronic kidney disease with creatinine back to baseline. Hernan Grissom M.D. cc: LIZBET Hebert MD Gregory S. Cheatham, MD MTDD
[2018-11-21] MEDS: MORPHINE IV PRN ×2 (08:41→12:36)
[2018-11-21] MEDS: LIPOSYN 20% 250 ML IV SCH (09:33)
--- NOTE | 2018-11-21 09:56 | PROGRESS NOTE ---
DATE: 11/21/2018 SUBJECTIVE: Mr. Bautista has had a little more trouble breathing, a little bit of some pleuritic pain on the left side. He is requesting something to drink. Mouth seems dry. He is supposed to get a barium swallow today to assess his swallowing. I think the EGD was postponed. OBJECTIVE: Temperature 99.2 degrees, pulse 99, respirations 22-24, blood pressure 154/77. Pupils are equal and round. Lungs: Scattered rhonchi on both sides and seems to have a little more tachypnea today. Abdomen is soft. Skin is warm and dry. Urine output is 3500 mL. ASSESSMENT AND PLAN: 1. Poorly moderated differentiated colon adenocarcinoma. The patient is back to baseline. When he gets back to baseline, they want to discuss options for treatment. I think he wants everything done. 2. Chronic obstructive pulmonary disease. Continue his current bronchodilators and he is having a little more congestion today. I am going to try adding some guaifenesin to try to thin out the mucous secretions. 3. Pneumonia. Continue present antibiotics. 4. Acute kidney injury on top of chronic kidney disease. Continue current treatment. 5. Deep venous thrombosis prophylaxis. 6. Dysphagia. A barium swallow is planned. Concerned about the possibility of aspiration. 7. We will continue his Clinimix at 75 mL an hour. Right now, on antibiotics. He is on cefepime 1 g every 12. He seemed to be pretty anxious. I will let him have a little bit of Ativan if he needs it. We will add the guaifenesin ER 1200 mg twice a day. Continue the acetylcysteine, albuterol ipratropium treatments, Cardizem CD 360 mg a day, folic acid 1 mg daily, Colace 100 mg twice a day, Megace 400 mg a day, Lopressor 25 mg twice a day, oxycodone IR 30 mg by mouth every 8 hours, Protonix 40 mg intravenous every 12, polyethylene glycol 17 g by mouth twice a day, linezolid 600 mg intravenous every 12. cc: MD Jacques De Jesus MD
[2018-11-21] MEDS: HEPARIN SUBQ SCH ×2 (10:00→20:45)
[2018-11-21] MEDS: COLACE PO SCH ×2 (11:02→20:49)
[2018-11-21] MEDS: MIRALAX PO SCH ×2 (11:04→20:47)
--- NOTE | 2018-11-21 11:12 | Diag Imaging Result Doc PS360 ---
BA SWALLOW-ESOPHAGUS - 11/21/2018 INDICATION: dysphagia TECHNIQUE: COMPARISON: None FINDINGS: There is diffuse, significant tertiary wave formation when the patient is swallowing consistent with severe dysmotility. No strictures. No mass or perforation. The gastroesophageal junction is normally located. IMPRESSION: Severe esophageal dysmotility. Electronically signed by Basil Hudson 11/21/2018 11:10 AM
[2018-11-21] MEDS: SODIUM CHLORIDE 0.9% INJ SCH ×2 (11:44→23:13)
[2018-11-21] MEDS: PROTONIX IV SCH ×2 (11:44→23:13)
--- NOTE | 2018-11-21 13:29 | PULMONOLOGY PROGRESS NOTE ---
DATE: 11/21/2018 SUBJECTIVE: The patient is awake, alert, and conversant. He has mild work of breathing this morning. He continues to have periodic rhonchi with examinations during the day. Barium swallow is pending. OBJECTIVE: Vital Signs: The patient has been afebrile for the last 24 hours. Blood pressure 159/84, heart rate 111, respiratory rate 16, oxygen saturation 96% on nasal cannula. HEENT: Pupils are equal and reactive. Oropharynx appears clear. Neck: Supple. Chest: Scattered rhonchi bilaterally. Cardiac: S1, S2. Abdomen: Soft. Extremities: Increased peripheral edema. LABORATORY DATA: Barium swallow is pending. No new chemistries today. No new white blood count today. IMPRESSION: A 73-year-old with: 1. Bilateral pneumonia. 2. Acute hypoxemic respiratory failure. 3. Chronic obstructive pulmonary disease. 4. Ongoing tobacco use. 5. Dysphagia with barium swallow pending. 6. Multiple rib fractures. 7. Protein calorie malnutrition. 8. Metastatic colon cancer. 9. Renal failure. PLAN: 1. Continue Clinimix and lipids pending results of barium swallow. 2. Continue antibiotics for bilateral pneumonia. 3. Attempt to balance intake and output. 4. Prognosis is guarded. cc: MD Jacques Dubois MD
[2018-11-21] MEDS: CLINIMIX E 4.25%-5% SOLUTION 1,000 ML IV SCH (13:44)
[2018-11-21] MEDS: LASIX IV SCH (13:44)
[2018-11-21] MEDS: MEGACE LIQUID PO SCH (13:45)
[2018-11-21] MEDS: MUCINEX PO SCH ×2 (13:45→20:46)
[2018-11-21] MEDS: FOLIC ACID PO SCH (13:45)
[2018-11-21] MEDS: CARDIZEM CD PO SCH (13:45)
[2018-11-21] MEDS: IMDUR PO SCH (13:45)
[2018-11-21] MEDS: THERA M PLUS PO SCH (13:46)
[2018-11-21] MEDS: LOPRESSOR PO SCH ×2 (13:46→20:48)
[2018-11-21] MEDS: OXY IR PO PRN ×2 (14:05→21:59)
[2018-11-21] MEDS ORDERED: OXY IR PO PRN (18:44)
--- NOTE | 2018-11-21 19:22 | NEPHROLOGY PROGRESS NOTE ---
DATE: 11/21/2018 SUBJECTIVE: Patient is sitting up on the side of the bed. No acute distress. OBJECTIVE: Vital Signs: Afebrile, pulse 109, respiratory rate 26, blood pressure 152/94, intake 3.2 L, output 2.1 L via Peck catheter. General: Elderly gentleman resting in bed. No acute distress. He is chronically ill-appearing and cachectic. HEENT: Normocephalic, atraumatic. PERRL. Neck: Supple without JVD. Cardiovascular: Regular rate and rhythm. Occasionally tachycardic. Pulmonary: He has crackles and rhonchi bilaterally with occasional wheeze. Equal excursion. Abdomen: Soft, with positive bowel sounds. : Peck catheter. Extremities: No edema. Integumentary: Skin is warm and dry with ecchymosis, thinning. LAB DATA: No new labs. His last creatinine was 1.8. ASSESSMENT AND PLAN: Acute overlying chronic kidney disease. His baseline creatinine is around 1.6. Again, he continues to have elevated BUN, likely secondary to intravenous nutrition. Continue to monitor. No changes are warranted at this time. Dictated by LIZBET Gale for Felix Colvin MD Face to face encounter, data reviewed, discussed with Yen Dunne on 11/21/18. I agree with the above assessment and plan of care. cc: MD Jacques Vizcarra MD [facility]
[2018-11-21] MEDS: DULCOLAX PR SCH (20:59)
--- NOTE | 2018-11-21 23:55 | PROVIDER PROGRESS NOTE ---
Progress Note SUBJECTIVE: No acute overnight events. No N/V/F OBJECTIVE Last Vital Signs Temp 97.7 F 11/21/18 23:29 Pulse 94 H 11/21/18 23:29 Resp 17 11/21/18 23:29 BP 134/68 11/21/18 23:29 Pulse Ox 98 11/21/18 23:29 Height 6 ft 2 in Weight 136 lb 12.8 oz GEN: awake, alert, NAD, chronic ill-appearing HEENT: anicteric, MMM NECK: supple, no JVD CV: RRR, no mrg PULM: coarse BS b/l, increased WOB ABD: soft NT/ND EXT: thin, no cce, WWP NEURO: nonfocal LABS 11/20/18 11/20/18 04:15 04:15 WBC 5.38 Hgb 8.8 L MCV 103.0 H Plt Count 184 Sodium 136 Potassium 4.9 D Chloride 105 Carbon Dioxide 17 L BUN 106 H Creatinine 1.8 H Glucose 212 H BA SWALLOW-ESOPHAGUS - 11/21/2018 INDICATION: dysphagia TECHNIQUE: COMPARISON: None FINDINGS: There is diffuse, significant tertiary wave formation when the patient is swallowing consistent with severe dysmotility. No strictures. No mass or perforation. The gastroesophageal junction is normally located. IMPRESSION: Severe esophageal dysmotility. Electronically signed by Basil Hudson 11/21/2018 11:10 AM A/P: Mr. Bautista is a 73 year old man with COPD, pHTN, CAD s/p CABG, CKD, AFIB, and metastatic colon cancer with liver mets who presented after a fall found to have pneumothorax, PNA, and acute hypoxic respiratory failure s/p chest tube. Also noted, anemia without overt GI bleeding and JORGE on CKD. GI consulted for dysphagia. Patient is tachycardic with very poor lung exam. Esophagram shows severe esophageal dysmotility. # Dysphagia: continue full liquid and advance to mechanical soft as tolerated , continue PPI; hold EGD for now given respiratory status # Metastatic colon cancer: followed by Dr. Grissom # PNA: on abx; defer to primary # Left PTX: s/p chest tube removal # AFIB: rate controlled # Anemia: no overt bleeding; continue to trend daily # CAD: no CP # Severe protein calorie malnutrition: f/u nutrition recs Will follow with you.
[2018-11-22] MEDS: LASIX IV SCH (01:31)
[2018-11-22] MEDS: MAXIPIME 1 GM in NS 50 ML IV SCH ×2 (01:34→12:58)
[2018-11-22] MEDS: ZYVOX 600 MG/D5W 600 MG/300 ML IVPB IV SCH ×2 (01:34→13:00)
[2018-11-22] MEDS: OXY IR PO PRN ×5 (02:03→23:16)
[2018-11-22] MEDS: DUONEB (A & A) INH SCH ×6 (03:14→22:36)
[2018-11-22 05:12] LABS: BASO# 0.02 X1000 (0.0-0.2); BASO% 0.2 % (0.0-0.8); EOS# 0.15 X1000 (0.0-0.7); EOS% 1.2 % (0.0-10.0); HEMATOCRIT 31.8 % (42.0-52.0); HEMOGLOBIN 10.4 g/dL (14.0-18.0); IMM GRAN# 0.13 X1000 (0.0-0.04); LYMPH# 0.94 X1000 (1.2-3.4); LYMPH% 7.3 % (20.5-51.1); MCH 33.2 PG (27-31); MCHC 32.7 g/dL (33-37); MCV 101.6 FL (81-99); MONO# 1.01 X1000 (0.11-0.59); MONO% 7.8 % (1.7-9.3); MPV 11.1 FL (7.4-10.4); NEUT# 10.69 X1000 (1.4-6.5); NEUT% 82.5 % (42.2-75.2); PLT 164 X1000 (130-400); RBC 3.13 XMIL (4.7-6.1); RDW 16.9 % (11.5-14.5); WBC 12.94 X1000 (4.8-10.8)
[2018-11-22 05:44] LABS: ALBUMIN 3.2 g/dL (3.5-5.0); CREATININE 1.6 mg/dL (0.7-1.2); MAGNESIUM 2.6 mg/dL (1.5-2.7); POTASSIUM 4.5 mmol/L (3.5-5.1); TOTAL BILIRUBIN 0.36 mg/dL (0.20-1.00); TOTAL PROTEIN 6.3 g/dL (6.3-8.3)
[2018-11-22] MEDS: CLINIMIX E 4.25%-5% SOLUTION 1,000 ML IV SCH ×2 (05:51→15:46)
[2018-11-22] MEDS: MORPHINE IV PRN ×4 (06:17→20:03)
--- NOTE | 2018-11-22 07:17 | Diag Imaging Result Doc PS360 ---
EXAM: CHEST-PORTABLE 11/22/2018 HISTORY: respiratory failure TECHNIQUE: AP portable at 0410 COMMENT: There are patchy alveolar opacities bilaterally particularly in the right upper lobe and left lower lobe. The latter is slightly worse than on 11/20/2018. IMPRESSION: Bronchopneumonia, slightly worsened in the left lower lobe. Electronically signed by Zeeshan Croft 11/22/2018 7:14 AM
[2018-11-22] MEDS: MUCOMYST 20% INH SCH ×2 (07:43→19:26)
[2018-11-22] MEDS: CARDIZEM CD PO SCH (08:25)
[2018-11-22] MEDS: LOPRESSOR PO SCH ×2 (08:25→20:03)
[2018-11-22] MEDS: MEGACE LIQUID PO SCH (08:26)
[2018-11-22] MEDS: IMDUR PO SCH (08:26)
[2018-11-22] MEDS: MUCINEX PO SCH ×2 (08:26→20:03)
[2018-11-22] MEDS: HEPARIN SUBQ SCH ×2 (08:26→20:03)
[2018-11-22] MEDS: MIRALAX PO SCH (08:36)
[2018-11-22] MEDS: COLACE PO SCH (08:36)
[2018-11-22] MEDS: FOLIC ACID PO SCH ×2 (08:36→10:02)
[2018-11-22] MEDS: LIPOSYN 20% 250 ML IV SCH (10:02)
[2018-11-22] MEDS: THERA M PLUS PO SCH (10:03)
[2018-11-22] MEDS: SODIUM CHLORIDE 0.9% INJ SCH ×2 (10:21→23:16)
[2018-11-22] MEDS: PROTONIX IV SCH ×2 (10:21→23:16)
--- NOTE | 2018-11-22 10:29 | PROGRESS NOTE ---
DATE: 11/22/2018 SUBJECTIVE: Mr. Bautista is awake and alert. He feels like his swallowing is doing better. His nurse reports he is having difficulty swallowing his tablets. He is breathing better today, appears comfortable. He is very weak. He is having bowel movements. His nurse also asked about maybe cutting down on some of his laxatives. OBJECTIVE: Vital Signs: On exam, temperature 98.7 degrees, pulse 111, respirations 20, blood pressure 114/63. Eyes: Pupils are equal and round. Lungs: Clear anterolateral. Cardiovascular exam: Regular rhythm and rate. Abdomen: Soft. Skin: Warm and dry. X-RAY: Chest x-ray showed bronchopneumonia, slightly worse in the left lower lobe. ASSESSMENT AND PLAN: 1. Dysphagia. Continue full liquid diet. Advance to mechanical as tolerated. Continue his proton pump inhibitor, and they are going to hold off an esophagogastroduodenoscopy. He had a barium swallow apparently yesterday. 2. Metastatic colon cancer followed by Dr. Grissom. 3. Pneumonia. Continue present antibiotics. 4. Left pneumothorax, status post chest tube removal. 5. Atrial fibrillation rate controlled. 6. Anemia. We will continue to follow hematocrit and hemoglobin. No overt bleeding noted. 7. Coronary artery disease. No evidence of ongoing ischemia. 8. Severe protein calorie malnutrition. Continue deep venous thrombosis prophylaxis. We will see if maybe we can cut down on some of his oral medicines to help him. We will stop his Colace, and I will see if we can stop his MiraLAX at this point. cc: MD Jacques De Jesus MD
--- NOTE | 2018-11-22 12:31 | GASTROENTEROLOGY PROGRESS NOTE ---
DATE: 11/22/2018 SUBJECTIVE: The patient is resting in bed. He is feeling the same, according to the nursing staff. He is drinking Ensure. He had a formed brown stool today. He does have intermittent trouble with pills. PHYSICAL EXAMINATION: Vital Signs: Temperature of 98.7, pulse rate of 101, respiratory rate of 26, blood pressure 119/71, saturating 97% on 3 L nasal cannula. Body weight of 134 pounds. BMI of 17.2 kg/m2. General Appearance: Thinly built, lying in bed, in no acute distress. HEENT: Pale conjunctivae. Nasal cannula in place. No icterus. Neck: Supple. He is slightly tachypneic. He is breathing is 24-28 per minute. Abdomen: Soft, nontender. No guarding. No rebound. Extremities: No cyanosis or clubbing. Neurological: He is awake and alert. Answers simple questions. LABS: Hemoglobin and hematocrit are 10.4 and 31.8, white count of 12.94, platelet count of 164,000. Sodium 137, potassium 4.5, chloride 102, bicarb 21, anion gap of 14, BUN of 91, creatinine of 1.6, glucose of 185, calcium is 9, magnesium 2.6. Total bilirubin 0.36, AST 16, ALT 10, alkaline phosphatase 96, total protein is 6.3, albumin of 3.2. Troponin is 0.219. Blood culture showing coagulase negative staphylococcus. Chest x-ray done today showed bronchopneumonia slightly worsening in the left lower lobe. IMPRESSION AND PLAN: 1. Metastatic colon cancer with liver metastasis. Presented after a fall. Found to have pneumothorax. Required chest tube placement, which was removed. Now gastroenterology is being consulted for dysphagia. He will continue on a full liquid diet, advance to mechanical soft as tolerated. He will continue with aspiration precautions. The nursing staff will assist with feeding. I spoke to the patient's nurse at bedside. We will continue to hold esophagogastroduodenoscopy for now until his respiratory status improves. 2. Pneumonia. He is on antibiotics. 3. Left-sided pneumothorax, is improved. 4. Atrial fibrillation, is rate controlled. 5. Anemia. Continue to watch for now. Transfuse as needed. 6. Protein calorie malnutrition. We will start him on Ensure 3 times daily. 7. Gastrointestinal prophylaxis with Protonix twice a day. 8. Deep venous thrombosis prophylaxis with heparin 5000 units every 12 hours. 9. Bowel regimen with Dulcolax 10 mg per rectal at bedtime. 10. He will continue on total parenteral nutrition with fat emulsions and Clinimix. 11. We reviewed the results of the barium swallow which showed evidence of diffuse significant tertiary wave formation. The patient is swallowing consistent with severe dysmotility. No strictures. No mass or perforation noted. The gastroesophageal junction is normally located. 12. The above plan was discussed with the patient and the nursing staff at bedside. All questions were answered. Please call us with any further questions. cc: MD Jacques Zarate MD [facility] L. Randall MTDD
[2018-11-22] MEDS ORDERED: LASIX IV ONE (18:26)
--- NOTE | 2018-11-22 19:14 | NEPHROLOGY PROGRESS NOTE ---
DATE: 11/22/2018 SUBJECTIVE: He has some pain and is asking for pain medicine. Otherwise no shortness of breath, nausea, vomiting, chest discomfort. OBJECTIVE: Vital Signs: Blood pressure 127/69, heart rate 104, respirations 21. Intake 3.1 L, output 4 L. General: No acute distress. Skin: Warm and dry. HEENT: Conjunctivae are pink. Neck: Neck veins are not distended. Heart: Regular. Lungs: Equal with rhonchi. Abdomen: Soft, nontender. Bowel sounds present. Extremities: No edema, clubbing, or cyanosis. IMPRESSION: Acute kidney injury. Creatinine is returning to baseline. His BUN is 91 but he is receiving IV nutrition, and so one might expect a slow recovery. He appears euvolemic. I do not have anything else to add at this point so I am going to sign off, but if I can be of further assistance, please do not hesitate to call me. cc: MD Jacques Vizcarra MD
[2018-11-22] MEDS: DULCOLAX PR SCH (20:02)
--- NOTE | 2018-11-22 20:14 | PULMONOLOGY PROGRESS NOTE ---
DATE: 11/22/2018 SUBJECTIVE: The patient is very weak. He is having some difficulty coughing and clearing secretions. He is speaking with a palliative care nurse. OBJECTIVE: Vital Signs: The patient has been afebrile for the last 24 hours. Blood pressure 141/75, heart rate 112, respiratory rate 21, oxygen saturation 95%. HEENT: Pupils are equal and reactive. Oropharynx appears clear. Neck: Supple. Chest: Reveals rhonchi bilaterally, unable to clear his secretions. Cardiac: S1-S2. Abdomen: Soft. Extremities: Reveal 1+ peripheral edema. DIAGNOSTIC DATA: Chest x-ray reveals bilateral infiltrates with slight worsening of the left lower lobe. White blood count 12.9, hemoglobin 10.4, platelet count 164,000. Electrolytes: Sodium 137, potassium 4.5, chloride 102, bicarbonate 21, BUN 91, creatinine 1.6. IMPRESSION: A 73-year-old with: 1. Stage IV metastatic colon cancer. 2. Bilateral pneumonia. 3. Acute hypoxemic respiratory failure. 4. Chronic obstructive pulmonary disease. 5. Dysphagia with markedly abnormal esophageal motility. 6. Ongoing tobacco use. 7. Multiple rib fractures following a fall. 8. Protein calorie malnutrition. 9. Renal failure. PLAN: 1. Continue p.o. intake as tolerated. Hopefully, patient can sit in a chair to eat to help decrease the risk of recurrent aspiration. 2. Continue current antibiotics. 3. Attempt to balance intake and output if possible. 4. Agree with end of life discussions. His prognosis is extremely poor. cc: MD Jacques Dubois MD
[2018-11-23] MEDS: ZYVOX 600 MG/D5W 600 MG/300 ML IVPB IV SCH ×2 (02:13→13:23)
[2018-11-23] MEDS: MAXIPIME 1 GM in NS 50 ML IV SCH ×2 (02:13→13:22)
[2018-11-23] MEDS: DUONEB (A & A) INH SCH ×6 (03:05→23:10)
[2018-11-23] MEDS: MORPHINE IV PRN ×3 (04:11→19:00)
[2018-11-23] MEDS: CLINIMIX E 4.25%-5% SOLUTION 1,000 ML IV SCH ×2 (05:09→18:33)
[2018-11-23 06:23] LABS: CALCIUM 8.8 mg/dL (8.8-10.2); POTASSIUM 5.2 mmol/L (3.5-5.1)
--- NOTE | 2018-11-23 06:23 | Diag Imaging Result Doc PS360 ---
EXAM: CHEST-PORTABLE HISTORY: respiratory failure TECHNIQUE: Portable chest single view COMPARISON: 11/22/2018 FINDINGS: The lungs are well expanded. The heart is not enlarged. Sternal wires are present. No change in the right jugular portacatheter. No pneumothorax. There are infiltrates in the mid right lung and in the left lung base. These may be slightly less dense. IMPRESSION: There appears to be slight interval improvement Electronically signed by Rudy Agrawal 11/23/2018 6:21 AM
[2018-11-23] MEDS: OXY IR PO PRN ×4 (06:43→21:12)
[2018-11-23] MEDS: MUCOMYST 20% INH SCH ×2 (07:58→19:37)
[2018-11-23] MEDS: LOPRESSOR PO SCH ×2 (09:36→21:12)
[2018-11-23] MEDS: IMDUR PO SCH (09:36)
[2018-11-23] MEDS: MUCINEX PO SCH ×2 (09:36→21:14)
[2018-11-23] MEDS: THERA M PLUS PO SCH (09:36)
[2018-11-23] MEDS: MEGACE LIQUID PO SCH (09:36)
[2018-11-23] MEDS: HEPARIN SUBQ SCH ×2 (09:37→21:12)
[2018-11-23] MEDS: FOLIC ACID PO SCH (09:37)
[2018-11-23] MEDS: SODIUM CHLORIDE 0.9% INJ SCH (09:37)
[2018-11-23] MEDS: CARDIZEM CD PO SCH (09:37)
[2018-11-23] MEDS: LIPOSYN 20% 250 ML IV SCH (09:42)
[2018-11-23] MEDS: PROTONIX IV SCH ×2 (09:50→22:30)
--- NOTE | 2018-11-23 09:52 | HEMO/ONC PROGRESS NOTE ---
DATE: 11/23/2018 SUBJECTIVE: The patient's shortness of breath slowly improving. The patient says he feels like he is slowly swallowing better, but still having some troubles. The patient denies any new complaints. OBJECTIVE: Vital Signs: Temperature 98.2 degrees heart rate 108, respiratory rate 26, blood pressure 146/79 sat 93% on nasal cannula. General: Patient is awake, he is lying in bed, in no acute distress noted. HEENT: Anicteric. Pupils PERRLA. Mucous membranes dry. CARDIOVASCULAR: S1, S2. Regular rate and rhythm.Chest: Bilateral breath sounds diminished bilaterally. Abdomen: Soft, nontender. Bowel sounds present all 4 quadrants. Neurologic: Alert and oriented x3. No focal deficits noted. ASSESSMENT AND PLAN: 1. Poorly to moderately differentiated colon adenocarcinoma: At this time patient still wanted treatment. We will have to wait until the patient improves. Once patient is back to baseline the patient will need to follow up in clinic discussed treatment at that time. Otherwise, continue to monitor. 2. Chronic obstructive pulmonary disease. Continue recommendations per primary team and pulmonology. 3. Pneumonia: Continue antibiotics per primary team and pulmonology. 4. Acute kidney injury on chronic kidney disease: Continue recommendations per Nephrology and primary medical team. 5. Deep venous thrombosis prophylaxis. Continue heparin as ordered. 6. Aphasia: Continue recommendations per medical team and Gastroenterology. 7. Plan of care discussed with Dr. Grissom. Dictated by LIZBET Hebert for Hernan Grissom MD Patient seen and examined. As above. His prognosis is guarded. I have had a lengthy discussion with him that at present he is in a difficult situation and may not get better from this. He has rib fractures and pneumonia and he is not going to quickly recovered from this. I will also expressed to him that he meant not go home if he leaves the hospital and may need rehabilitation and fci placement. He is extremely frail and malnourished. I discussed DNR with him and he is agreeable. I have discussed hospice but he still wants to keep his option open for therapy. I have clearly stated to him that, at this point I cannot make decisions regarding continuation of therapy and will only consider therapy if and when I can reevaluate him in the clinic and he is stronger. Hernan Grissom M.D. cc: LIZBET Hebert MD Gregory S. Cheatham, MD [facility]ITALAmol
--- NOTE | 2018-11-23 10:08 | PROGRESS NOTE ---
DATE: 11/23/2018 SUBJECTIVE: Mr. Bautista does not feel like he is breathing as comfortably this morning. He says he is still having some trouble with his swallowing and not going down well by his words. He is still very weak. He did want to be a DNR yesterday and I think he is trying to decide whether to go to hospice or go to [facility]. SUBJECTIVE: Vital Signs: He is afebrile. Temperature 98.2 degrees, pulse 105, respirations 23, blood pressure 146/79. HEENT: Pupils were equal. General: He is awake, alert, oriented x3. Lungs: Clear anterior and lateral. Cardiovascular: Regular rhythm and rate without murmur or S3. Abdomen: Soft. Skin: Warm and dry. LABORATORY DATA: Urine output is 3700 mL. Chest x-ray from this morning appears to be slight interval improvement, lungs are well expanded, heart is not enlarged. Sternal wires present. No change in right jugular Port-A-Cath, no pneumothorax. There are infiltrates in the mid right lung and the left lung base, and these appear slightly less dense. ASSESSMENT AND PLAN: 1. Stage IV metastatic colon cancer. He is making decisions on what he wants to do. 2. Bilateral pneumonia. Continue present IV antibiotics. Clinically seems to be improving. 3. Acute hypoxemic respiratory failure. 4. Chronic obstructive pulmonary disease exacerbation. 5. Dysphagia, marked abnormal esophageal motility, still difficulty with swallowing. 6. Ongoing tobacco use. 7. Multiple rib fractures following a fall. 8. Protein calorie malnutrition. 9. Renal failure, acute kidney injury. Creatinine is up to 2.0, was 1.6 on 11/22/2018. 10. Protein calorie malnutrition. We are still working on that. His swallow still seems to be suspect. Looking over his orders, I do not see any change at this point. cc: MD Jacques De Jesus MD
--- NOTE | 2018-11-23 16:57 | PULMONOLOGY PROGRESS NOTE ---
DATE: 11/23/2018 SUBJECTIVE: The patient reports her shortness of breath is slightly less. He is having difficulty clearing his bronchial secretions. OBJECTIVE: Vital Signs: The patient is afebrile. Blood pressure 117/82. Heart rate 107. Respiratory rate 26. Oxygen saturation 93%. HEENT: Pupils are equal and reactive. Oropharynx is clear. Neck: Supple. Chest: Reveals rhonchi bilaterally. Cardiac: S1-S2. Abdomen: Soft. Extremities: Reveal trace edema. IMAGING: Chest x-ray reveals slight improvement in infiltrates bilaterally. LABORATORIES: Sodium 134, potassium 5.2. Chloride 96. Bicarbonate 20. BUN 110, creatinine 2.0. IMPRESSION: A 73-year-old with: 1. Stage IV metastatic colon cancer. 2. Bilateral pneumonia. 3. Severe chronic obstructive pulmonary disease. 4. Acute hypoxemic respiratory failure. 5. Dysfunctional esophagus/abnormal esophageal motility. 6. Ongoing tobacco use. 7. Multiple rib fractures associated with the fall prior to this admission. 8. Severe protein calorie malnutrition. 9. Acute renal failure. RECOMMENDATIONS: 1. Continue cautious p.o. intake. If p.o. intake can increase then his Clinimix lipids can be discontinued. 2. Continue current antibiotics. 3. Attempt to balance intake and output, but his BUN and creatinine is climbing. 4. Prognosis is poor. The patient was a Do Not Resuscitate yesterday, but code status has been changed back to Full. 5. End of life discussion should be ongoing. cc: MD Jacques Dubois MD
[2018-11-23] MEDS: DULCOLAX PR SCH ×2 (21:13→21:20)
[2018-11-23] MEDS ORDERED: NS 1,000 ML IV SCH (22:45)
--- NOTE | 2018-11-23 23:58 | PROVIDER PROGRESS NOTE ---
Progress Note SUBJECTIVE: No acute overnight events. Afebrile. Tolerating mechanical soft without N/V or dysphagia OBJECTIVE: Last Vital Signs Temp 98.2 F 11/24/18 00:00 Pulse 95 H 11/24/18 00:02 Resp 19 11/24/18 00:02 BP 142/71 11/24/18 00:02 Pulse Ox 97 11/24/18 00:02 Height 6 ft 2 in Weight 134 lb 8 oz GEN: awake, alert, NAD, chronic ill-appearing HEENT: anicteric, MMM NECK: supple, no JVD CV: RRR, no mrg PULM: coarse BS b/l, increased WOB ABD: soft NT/ND EXT: thin, no cce, WWP NEURO: nonfocal LABS 11/23/18 04:20 Sodium 134 L Potassium 5.2 H D Chloride 96 L Carbon Dioxide 20 L BUN 110 H Creatinine 2.0 H Glucose 153 H BA SWALLOW-ESOPHAGUS - 11/21/2018 INDICATION: dysphagia TECHNIQUE: COMPARISON: None FINDINGS: There is diffuse, significant tertiary wave formation when the patient is swallowing consistent with severe dysmotility. No strictures. No mass or perforation. The gastroesophageal junction is normally located. IMPRESSION: Severe esophageal dysmotility. Electronically signed by Basil Hudson 11/21/2018 11:10 AM A/P: Mr. Bautista is a 73 year old man with COPD, pHTN, CAD s/p CABG, CKD, AFIB, and metastatic colon cancer with liver mets who presented after a fall found to have pneumothorax, PNA, and acute hypoxic respiratory failure s/p chest tube. Also noted, anemia without overt GI bleeding and JORGE on CKD. GI consulted for dysphagia. Esophagram showed severe esophageal dysmotility without luminal obstruction. He is tolerating mechanical soft diet. # Dysphagia: mechanical soft with ensure with meals; on clinimix and lipid emulsion; PPI; dysphagia precautions # Metastatic colon cancer: followed by Dr. Grissom # PNA: on abx; defer to primary # Left PTX: s/p chest tube removal # AFIB: rate controlled # Anemia: no overt bleeding; continue to trend daily # CAD: no CP # Severe protein calorie malnutrition: f/u nutrition recs Will sign off. Please call with questions
[2018-11-24] MEDS: MORPHINE IV PRN ×6 (00:57→21:10)
[2018-11-24] MEDS: MAXIPIME 1 GM in NS 50 ML IV SCH ×2 (01:03→13:30)
[2018-11-24] MEDS: ZYVOX 600 MG/D5W 600 MG/300 ML IVPB IV SCH ×2 (01:04→14:00)
[2018-11-24] MEDS: DUONEB (A & A) INH SCH ×6 (03:12→23:05)
[2018-11-24 06:44] LABS: CALCIUM 8.7 mg/dL (8.8-10.2); CREATININE 1.9 mg/dL (0.7-1.2); POTASSIUM 5.3 mmol/L (3.5-5.1)
[2018-11-24] MEDS: LIPOSYN 20% 250 ML IV SCH ×2 (07:08→14:49)
[2018-11-24] MEDS: CLINIMIX E 4.25%-5% SOLUTION 1,000 ML IV SCH ×3 (07:09→21:07)
[2018-11-24] MEDS: MUCOMYST 20% INH SCH ×2 (07:25→19:40)
[2018-11-24] MEDS: CARDIZEM CD PO SCH (08:10)
[2018-11-24] MEDS: MEGACE LIQUID PO SCH (08:10)
[2018-11-24] MEDS: MUCINEX PO SCH ×2 (08:11→21:08)
[2018-11-24] MEDS: HEPARIN SUBQ SCH ×2 (08:11→21:08)
[2018-11-24] MEDS: LOPRESSOR PO SCH ×2 (08:11→21:09)
[2018-11-24] MEDS: THERA M PLUS PO SCH (08:11)
[2018-11-24] MEDS: FOLIC ACID PO SCH (08:11)
[2018-11-24] MEDS: IMDUR PO SCH (08:11)
--- NOTE | 2018-11-24 08:40 | Diag Imaging Result Doc PS360 ---
EXAM: CHEST-PORTABLE - 11/24/2018 HISTORY: respiratory failure TECHNIQUE: Portable chest COMPARISON: 11/23/2018 FINDINGS: Heart size is normal. Bilateral infiltrates appear essentially stable. There is possible tiny left pleural effusion. There is fracture of the lateral right sixth rib. There is no pneumothorax verified. Central venous catheter remains in place. IMPRESSION: Stable bilateral infiltrates. Fracture of lateral right sixth rib. No evidence of pneumothorax. Electronically signed by Shawn Camargo 11/24/2018 8:38 AM
--- NOTE | 2018-11-24 09:59 | PROGRESS NOTE ---
DATE: 11/24/2018 SUBJECTIVE: Mr. Bautista says he is still hurting. He would like us to go up on the pain medicine. He feels like his breathing is about the same. Remains afebrile. OBJECTIVE: Vital Signs: Temperature 98.6 degrees, pulse 102, respirations 17, blood pressure 129/62. Eyes: Pupils are equal. Neck: No distended neck veins. Lungs: Lungs are clear anterolateral. Cardiovascular exam: Regular rhythm and rate without murmur or S3. Abdomen: Abdomen is soft. Skin: Skin is warm and dry. LABS AND X-RAYS: Electrolytes from this morning: Sodium 135, potassium 5.3, chloride 100, bicarbonate 22. BUN 109, creatinine 1.9; yesterday it was 2.0. Chest x-ray from this morning: Stable bilateral infiltrates, fracture of the lateral right sixth rib, no evidence of pneumothorax. ASSESSMENT AND PLAN: 1. Dysphagia. Mechanical soft diet, Ensure with meals. He is on Clinimix with lipid emulsions and he is on a proton pump inhibitor and dysphagia precautions. 2. Metastatic colon cancer followed by Dr. Grissom. 3. Pneumonia seems to be improving. Continue present antibiotics. 4. He is status post left pneumothorax and chest tube, which has been removed. 5. Atrial fibrillation, rate controlled. 6. Anemia. Continue to watch and follow hematocrit and hemoglobin. 7. Coronary artery disease. No sign of active cardiac ischemia. 8. Severe protein calorie malnutrition. Continue to encourage oral intake. So, patient has stage IV metastatic colon cancer, bilateral pneumonia, exacerbation of COPD, acute hypoxemic respiratory failure and dysfunctional esophagus and abnormal esophageal motility, multiple rib fractures associated with fall, severe protein calorie malnutrition and acute renal failure. The renal failure seems to be stable. Creatinine is 1.9. Review of the orders: The patient is getting guaifenesin ER 1200 mg twice a day, on low-dose heparin 5000 units subcutaneous q. 12 hours, Clinimix 75 mL an hour, Cardizem CD 360 mg a day, folic acid 1 mg a day and getting fat emulsions at 20% about 10 mL an hour, Maxipime 1 g q. 12 hours, Megace 400 mg p.o. daily, Lopressor 25 mg b.i.d., morphine 5 mg IV q. 4 hours p.r.n., oxycodone IR 15 mg q. 4 hours p.r.n., Protonix 40 mg IV q. 12 hours, linezolid 600 mg IV q. 12 hours. CULTURES: Had 1 blood culture with coagulase-negative Staphylococcus, suspected contaminant. Continue present measures. Oncology is following. Has poorly to moderately differentiated colon adenocarcinoma and, at the present time, wants to pursue treatment. So, we will get followup in the clinic. cc: MD Jacques De Jesus MD
[2018-11-24] MEDS: PROTONIX IV SCH ×2 (11:00→21:54)
[2018-11-24] MEDS: OXY IR PO PRN ×2 (13:24→18:06)
[2018-11-24] MEDS: DULCOLAX PR SCH (21:09)
[2018-11-25] MEDS: OXY IR PO PRN ×4 (00:40→20:51)
[2018-11-25] MEDS: MAXIPIME 1 GM in NS 50 ML IV SCH ×2 (00:40→15:57)
[2018-11-25] MEDS: ZYVOX 600 MG/D5W 600 MG/300 ML IVPB IV SCH ×2 (01:07→15:57)
[2018-11-25] MEDS: MORPHINE IV PRN ×3 (02:16→19:17)
[2018-11-25] MEDS: DUONEB (A & A) INH SCH ×6 (03:05→22:54)
[2018-11-25] MEDS: LIPOSYN 20% 250 ML IV SCH ×2 (04:32→09:39)
[2018-11-25 06:03] LABS: CALCIUM 8.6 mg/dL (8.8-10.2); CREATININE 1.8 mg/dL (0.7-1.2); POTASSIUM 5.5 mmol/L (3.5-5.1)
--- NOTE | 2018-11-25 07:14 | Diag Imaging Result Doc PS360 ---
EXAM: CHEST-PORTABLE HISTORY: respiratory failure TECHNIQUE: Portable chest single view COMPARISON: 11/24/2018 FINDINGS: There are infiltrates in the mid lungs and in the left base similar to the prior study. No change in the right sided portacatheter. No pneumothorax. Sternal wires are present. No cardiomegaly. No pleural effusions identified. There is a fracture to the right lateral sixth rib. No pneumothorax. IMPRESSION: Stable chest. Electronically signed by Rudy Agrawal 11/25/2018 7:11 AM
[2018-11-25] MEDS: MUCOMYST 20% INH SCH ×2 (07:15→19:20)
[2018-11-25] MEDS: MEGACE LIQUID PO SCH (08:43)
[2018-11-25] MEDS: THERA M PLUS PO SCH (08:43)
[2018-11-25] MEDS: FOLIC ACID PO SCH (08:43)
[2018-11-25] MEDS: HEPARIN SUBQ SCH ×2 (08:43→20:51)
[2018-11-25] MEDS: CARDIZEM CD PO SCH (08:43)
[2018-11-25] MEDS: MUCINEX PO SCH ×2 (08:43→20:50)
[2018-11-25] MEDS: LOPRESSOR PO SCH ×2 (08:43→20:50)
[2018-11-25] MEDS: IMDUR PO SCH (09:19)
--- NOTE | 2018-11-25 10:28 | PROGRESS NOTE ---
DATE: 11/25/2018 SUBJECTIVE: Mr. Bautista was sitting up, breathing fairly comfortably. He is still pretty weak. PHYSICAL EXAMINATION: Temperature 97.2 degrees, pulse 98, respirations 33, blood pressure 132/80. Pupils are equal and round. Lungs are clear in all lung sena. Cardiovascular Examination: Regular rhythm and rate without murmur or S3. Abdomen is soft. Skin is warm and dry. DIAGNOSTIC DATA: Chest x-ray, infiltrates in the mid lungs, in the left base, similar to prior study. No change in right-sided pericatheter. No pneumothorax. Sternal wires are present. No cardiomegaly. There is a fracture in the right lateral 6th rib. No pneumothorax. ASSESSMENT AND PLAN: 1. Dysphagia. Mechanical soft diet. He seems to be tolerating. Encourage Ensure at meals. He is still on Clinimix and lipid emulsion. 2. Metastatic colon cancer. Followed by Dr. Grissom, to pursue therapy once his nutrition is improved and a little stronger. 3. Pneumonia, seems to be improving. Continue antibiotics. Radiographically, he still has infiltrates. 4. Status post pneumothorax. Chest tube placement and has been removed. 5. Atrial fibrillation, rate controlled. 6. Anemia. Continue to watch hemoglobin and hematocrit. 7. Coronary artery disease. No sign of active ischemia. 8. Severe protein calorie malnutrition. Continue oral intake. 9. I do not see any change in his orders. I think we can probably move him to [facility]. cc: MD Jacques De Jesus MD
[2018-11-25] MEDS: PROTONIX IV SCH ×2 (10:35→20:51)
[2018-11-25] MEDS: CLINIMIX E 4.25%-5% SOLUTION 1,000 ML IV SCH (10:36)
[2018-11-25] MEDS: MYCOSTATIN SUSP PO SCH ×3 (15:57→20:51)
[2018-11-25] MEDS: SODIUM CHLORIDE 0.9% INJ SCH (20:51)
[2018-11-25] MEDS: DULCOLAX PR SCH (20:51)
[2018-11-25] MEDS: ATIVAN IV PRN (23:16)
[2018-11-26] MEDS: MAXIPIME 1 GM in NS 50 ML IV SCH ×2 (01:12→13:47)
[2018-11-26] MEDS: ZYVOX 600 MG/D5W 600 MG/300 ML IVPB IV SCH ×2 (02:05→13:47)
[2018-11-26] MEDS: DUONEB (A & A) INH SCH ×6 (03:27→23:08)
[2018-11-26] MEDS: CLINIMIX E 4.25%-5% SOLUTION 1,000 ML IV SCH (05:35)
[2018-11-26 05:53] LABS: CALCIUM 8.4 mg/dL (8.8-10.2); CREATININE 2.1 mg/dL (0.7-1.2)
[2018-11-26 06:26] LABS: POTASSIUM 6.7 mmol/L (3.5-5.1)
[2018-11-26] MEDS ORDERED: ALBUTEROL 0.5% INH CONC FOR HYPERKALEMIA INH ONE (06:34)
[2018-11-26] MEDS ORDERED: HUMULIN R IV ONE (06:37)
[2018-11-26] MEDS ORDERED: CALCIUM GLUCONATE 1 GM in NS 50 ML IV ONE (06:37)
[2018-11-26] MEDS ORDERED: KAYEXALATE PO ONE (06:37)
[2018-11-26] MEDS ORDERED: D50W SYRINGE IV ONE (06:39)
--- NOTE | 2018-11-26 07:24 | Diag Imaging Result Doc PS360 ---
CHEST-PORTABLE - 11/26/2018 INDICATION: respiratory failure COMPARISON: 11/25/2018 FINDINGS: Stable right chest port and CABG changes. Stable cardiomegaly and pulmonary vascular congestion. Stable COPD. Stable heterogeneous diffuse infiltrates bilaterally. No pneumothorax or significant pleural effusion. IMPRESSION: No change from prior. Electronically signed by Basil Hudson 11/26/2018 7:22 AM
--- NOTE | 2018-11-26 07:50 | EKG Report ---
Test Performed on : 11/26/2018 06:44:53 AM Test Reason : increased potassium Blood Pressure : / mmHG Vent. Rate : 072 BPM Atrial Rate : 072 BPM P-R Int : 440 ms QRS Dur : 120 ms QT Int : 390 ms P-R-T Axes : 000 059 019 degrees QTc Int : 427 ms Sinus rhythm. with 1st degree AV block. Right bundle branch block Abnormal ECG When compared with ECG of 19-NOV-2018 14:09, premature ventricular complexes. are no longer present Right bundle branch block is now present Unconfirmed Result
[2018-11-26] MEDS: LIPOSYN 20% 250 ML IV SCH (09:33)
[2018-11-26] MEDS: SODIUM CHLORIDE 0.9% INJ SCH (09:34)
[2018-11-26] MEDS: LOPRESSOR PO SCH ×2 (09:34→20:01)
[2018-11-26] MEDS: PROTONIX IV SCH ×2 (09:34→20:08)
[2018-11-26] MEDS: OXY IR PO PRN ×2 (09:34→19:02)
[2018-11-26] MEDS: CARDIZEM CD PO SCH (09:34)
[2018-11-26] MEDS: MYCOSTATIN SUSP PO SCH ×4 (09:34→20:08)
[2018-11-26] MEDS: THERA M PLUS PO SCH (09:35)
[2018-11-26] MEDS: IMDUR PO SCH (09:35)
[2018-11-26] MEDS: FOLIC ACID PO SCH (09:35)
[2018-11-26] MEDS: MUCINEX PO SCH ×2 (09:35→20:01)
[2018-11-26] MEDS: HEPARIN SUBQ SCH ×2 (09:37→20:08)
[2018-11-26] MEDS: MEGACE LIQUID PO SCH (09:41)
[2018-11-26] MEDS: MUCOMYST 20% INH SCH ×2 (11:44→19:44)
--- NOTE | 2018-11-26 12:14 | PROGRESS NOTE ---
DATE: 11/26/2018 SUBJECTIVE: Mr. Bautista feels a little better and feels a little stronger. He has moved to [facility]. His daughter was there and his grandson. We discussed what we want to do. I am not sure he knows whether he wants to try and pursue rehab, whether he wants to try and pursue treatment for his cancer, or whether he wants to try go home with hospice. His daughter was going to talk with him. We are going to continue our present treatment with physical therapy. OBJECTIVE: On exam today, he remains afebrile. Pulse of 90, respirations 20, and blood pressure 146/55. Pupils are equal. Lungs are clear with scattered rhonchi throughout, but he is moving air pretty well. No wheezing this morning. Cardiovascular exam regular rhythm and rate without murmur or S3. Abdomen is soft. Skin is warm and dry. DIAGNOSTIC DATA: I should mention his chest x-ray from this morning, really no change. Stable right chest port and CABG changes. Stable cardiomegaly and pulmonary vascular congestion. Stable COPD. Stable heterogeneous diffuse infiltrates bilaterally. No pneumothorax or significant pleural effusion. ASSESSMENT AND PLAN: 1. Dysphagia. He is on mechanical diet. Seems to be doing fairly well as far as swallowing and getting a little more nutrition. He is still on Clinimix and lipid emulsion. I think we probably ought to stop those. 2. Metastatic colon cancer followed by Dr. Grissom. He is discussing possible therapy when he gets stronger. The question is whether he would be able to get stronger. 3. Pneumonia which is improving. Continue present antibiotics. 4. Status post pneumothorax. He had a chest tube which has been removed. He seems to be doing well from that standpoint. 5. Atrial fibrillation, rate controlled. 6. Anemia. Continue to watch hemoglobin and hematocrit, seems to be stable. 7. History of coronary artery disease. No sign of active ischemia. 8. Severe protein calorie malnutrition. Encourage p.o. intake and I think we will stop his Clinimix. 9. General weakness and deconditioning. Continue physical therapy. 10. We need to decide what he wants to do based on where he wants to go and what he wants to do regarding treatment. MEDICATIONS: Review of his medications: He is getting Dulcolax 10 mg per rectum at bedtime, getting Mucinex 1200 mg twice a day. He is on low-dose heparin 5000 units subcu q.12. He is getting Clinimix at 75 mg, Cardizem CD 360 mg a day, folic acid 1 mg a day, isosorbide dinitrate extended release 30 mg a day. He gets Ativan 0.5 mg IV q.6h p.r.n. anxiety. He is still on the Maxipime 1 g IV q.12h. He is getting Megace 400 mg a day, Lopressor 25 mg b.i.d., morphine 5 mg IV q.4 hours p.r.n. severe pain, multivitamin, calcium and iron once a day. Start him on nystatin swish and swallow 4 times a day. He has some oral thrush. Oxycodone IR 15 mg q.4 hours, Protonix 40 mg q.12, linezolid 600 mg IV q.12, and calcium gluconate 1 gram. He received that this morning low calcium. LABORATORY DATA: Review of his labs from today. I do not see anything new except for electrolytes sodium 130, potassium is high at 6.7, chloride 96, BUN 124, creatinine 2.1, and creatinine has remained fairly stable. Calcium was 8.4. I do not see that he is receiving any supplemental potassium, except Clinimix so we will stop the Clinimix. cc: MD Jacques De Jesus MD
[2018-11-26] MEDS: DULCOLAX PR SCH ×2 (20:08→20:10)
--- NOTE | 2018-11-26 20:47 | PULMONOLOGY PROGRESS NOTE ---
DATE: 11/26/2018 SUBJECTIVE: The patient is arousable to alert. He reports generalized pain with mild shortness of breath. OBJECTIVE: Vital Signs: Blood pressure 125/64, heart rate 86, respiratory rate 26, oxygen saturation 100% on 3 L per nasal cannula. HEENT: Pupils are equal and reactive. Oropharynx appears clear. Neck: Supple. Chest: Reveals prolonged expiratory phase with positive rhonchi bilaterally. Cardiac exam: S1, S2. Abdomen: Soft. Extremities: Without edema. IMAGING: Chest x-ray reveals cardiomegaly with mild vascular congestion and bilateral infiltrates. IMPRESSION: A 73-year-old with: 1. Bilateral pneumonia. 2. Severe chronic obstructive pulmonary disease. 3. Acute hypoxemic respiratory failure. 4. Stage IV metastatic colon cancer. 5. Severe esophageal dysfunction. 6. Ongoing tobacco use at the time of admission. 7. Multiple rib fractures with fall prior to admission. 8. Severe protein calorie malnutrition. RECOMMENDATIONS: 1. Encourage p.o. intake as tolerated. 2. Continue current antibiotics. 3. Continue medications for pain. 4. Recommend ongoing end of life discussions. The patient's prognosis is poor. I doubt that he has significant rehab potential. cc: MD Jacques Dubois MD
[2018-11-27] MEDS: ZYVOX 600 MG/D5W 600 MG/300 ML IVPB IV SCH ×2 (01:09→13:51)
[2018-11-27] MEDS: MAXIPIME 1 GM in NS 50 ML IV SCH ×2 (01:09→13:51)
[2018-11-27] MEDS: DUONEB (A & A) INH SCH ×6 (04:08→23:20)
[2018-11-27 06:05] LABS: CALCIUM 8.7 mg/dL (8.8-10.2); CREATININE 1.9 mg/dL (0.7-1.2); POTASSIUM 5.4 mmol/L (3.5-5.1)
--- NOTE | 2018-11-27 07:31 | Diag Imaging Result Doc PS360 ---
CHEST-PORTABLE - 11/27/2018 INDICATION: respiratory failure COMPARISON: 11/26/2018 FINDINGS: Stable right chest port. Stable sternotomy wires. Stable cardiomegaly. There has been improvement in the hazy background interstitial infiltrates suggesting pulmonary edema. Stable focal infiltrates in both upper lobes and left lung base. No new abnormalities. IMPRESSION: Slight improvement in the hazy background interstitial pulmonary edema. Electronically signed by Basil Hudson 11/27/2018 7:29 AM
[2018-11-27] MEDS: MUCOMYST 20% INH SCH ×2 (07:45→20:06)
[2018-11-27] MEDS: HEPARIN SUBQ SCH ×2 (09:29→21:18)
[2018-11-27] MEDS: MEGACE LIQUID PO SCH (09:29)
[2018-11-27] MEDS: CARDIZEM CD PO SCH (09:29)
[2018-11-27] MEDS: PROTONIX IV SCH ×2 (09:29→21:18)
[2018-11-27] MEDS: SODIUM CHLORIDE 0.9% INJ SCH (09:29)
[2018-11-27] MEDS: MYCOSTATIN SUSP PO SCH ×4 (09:29→21:17)
[2018-11-27] MEDS: MUCINEX PO SCH ×2 (09:30→21:17)
[2018-11-27] MEDS: THERA M PLUS PO SCH (09:30)
[2018-11-27] MEDS: FOLIC ACID PO SCH (09:30)
[2018-11-27] MEDS: LOPRESSOR PO SCH ×2 (09:30→21:17)
[2018-11-27] MEDS: IMDUR PO SCH (09:30)
[2018-11-27] MEDS: OXY IR PO PRN (09:48)
--- NOTE | 2018-11-27 17:45 | PROGRESS NOTE ---
DATE: 11/27/2018 SUBJECTIVE: The patient is sitting up, taking his medications. He states that he feels okay. No acute events noted overnight. OBJECTIVE: Vital Signs: Temperature 99, blood pressure 128/73, heart rate 103, respirations 15. O2 sats 100% on 3 L nasal cannula. Urine output 3.8 L. General: This is a chronically ill- appearing elderly male lying in bed in no acute distress. HEENT: Head normocephalic, atraumatic. Heart: S1, S2 normal. Lungs: Coarse breath sounds bilaterally. Abdomen: Positive bowel sounds. Soft, nontender, nondistended. Extremities: No edema, no cyanosis. Extremities: 2+ edema. No cyanosis. No calf tenderness. Neurologic: The patient is alert and oriented. LABS: Sodium 134, potassium 5.4, chloride 100, CO2 20, BUN 117, creatinine 1.9, glucose 142. ASSESSMENT AND PLAN: 1. Acute hypoxemic respiratory failure. Multifactorial. Continue to treat the underlying issues. 2. Bilateral lobe pneumonia. Continue with antibiotic therapy. 3. Stage IV metastatic colon cancer. Aware. 4. Severe COPD. Continue with supportive care. 5. Multiple rib fractures status post fall at home. Aware. 6. Esophageal dysmotility. Aware. 7. Disposition. Palliative care is scheduled to meet with the patient's family tomorrow to discuss goals of care. cc: Angie Carranza MD MTDD
[2018-11-27] MEDS: MORPHINE IV PRN (21:18)
[2018-11-27] MEDS: DULCOLAX PR SCH (21:18)
[2018-11-28] MEDS: MAXIPIME 1 GM in NS 50 ML IV SCH ×2 (02:15→13:53)
[2018-11-28] MEDS: ZYVOX 600 MG/D5W 600 MG/300 ML IVPB IV SCH ×2 (02:15→13:53)
[2018-11-28] MEDS: DUONEB (A & A) INH SCH ×5 (03:40→19:07)
[2018-11-28 05:18] LABS: HEMATOCRIT 28.3 % (42.0-52.0); MCH 33.7 PG (27-31); MCHC 31.8 g/dL (33-37); MPV 12.3 FL (7.4-10.4); RBC 2.67 XMIL (4.7-6.1); RDW 18.1 % (11.5-14.5); WBC 13.4 X1000 (4.8-10.8)
[2018-11-28 06:02] LABS: CALCIUM 8.6 mg/dL (8.8-10.2); POTASSIUM 5.3 mmol/L (3.5-5.1)
[2018-11-28] MEDS: MUCOMYST 20% INH SCH ×2 (07:12→19:07)
--- NOTE | 2018-11-28 07:44 | Diag Imaging Result Doc PS360 ---
EXAM: CHEST-PORTABLE 11/28/2018 HISTORY: respiratory failure TECHNIQUE: AP portable at 0601 COMMENT: There is ill-defined opacity in the left base and throughout the mid lung field on the left. There is denser opacification in the inferior portion of the right upper lobe. These findings were apparently also present on the previous study of 11/27/2018 and there has been slight improvement since 11/26/2018. IMPRESSION: Pneumonia plus minus pulmonary edema. Electronically signed by Zeeshan Croft 11/28/2018 7:42 AM
[2018-11-28] MEDS: THERA M PLUS PO SCH (08:52)
[2018-11-28] MEDS: FOLIC ACID PO SCH (08:52)
[2018-11-28] MEDS: CARDIZEM CD PO SCH (08:52)
[2018-11-28] MEDS: LOPRESSOR PO SCH ×2 (08:52→21:35)
[2018-11-28] MEDS: PROTONIX IV SCH ×2 (08:52→21:38)
[2018-11-28] MEDS: MYCOSTATIN SUSP PO SCH ×4 (08:52→21:38)
[2018-11-28] MEDS: MUCINEX PO SCH ×2 (08:52→21:35)
[2018-11-28] MEDS: IMDUR PO SCH (08:52)
[2018-11-28] MEDS: HEPARIN SUBQ SCH ×2 (08:52→21:38)
[2018-11-28] MEDS: MEGACE LIQUID PO SCH (08:57)
[2018-11-28] MEDS: OXY IR PO PRN ×2 (08:57→14:36)
--- NOTE | 2018-11-28 14:58 | PROGRESS NOTE ---
DATE: 11/28/2018 SUBJECTIVE: The patient is resting comfortably in bed. He has no complaints at this time. OBJECTIVE: Vital Signs: Temperature 97.6 degrees, blood pressure 128/72, heart rate 110, respirations 18, O2 saturation is 98% on 3 L nasal cannula. Urine output 2.2 L. General: This is an elderly male, sitting up in bed, in no acute distress. Head: Normocephalic, atraumatic. Heart: S1, S2 normal. Regular rate and rhythm. Lungs: Coarse breath sounds bilaterally. Abdomen: Positive bowel sounds. Soft, nontender, nondistended. Extremities: There is 2+ edema. No cyanosis. Neurologic: The patient is alert and oriented x3. Labs: White blood cell count 13, hemoglobin 9, hematocrit 28, platelets 119,000. Sodium 133, potassium 5.3, chloride 101, CO2 19, BUN 113, creatinine 2, glucose 178. Chest x-ray shows pneumonia and pulmonary edema. ASSESSMENT AND PLAN: 1. Acute hypoxemic respiratory failure. Multifactorial. 2. Bilateral pneumonia. The patient is currently on linezolid and cefepime. The infiltrates appear to be unchanged and the white blood cell count is increasing. The patient may benefit from a different antibiotic regimen. We will defer to the residence hall director. 3. Chronic obstructive pulmonary disease. Continue with supportive care. 4. Stage IV metastatic colon cancer. Aware. 5. Multiple rib fractures status post fall at home. Aware. 6. Esophageal dysmotility. Aware. 7. Disposition. Palliative care is scheduled to meet with the patient's grandson and daughter this afternoon. We will await the results of this discussion. cc: Angie Carranza MD
--- NOTE | 2018-11-28 19:42 | PULMONOLOGY PROGRESS NOTE ---
DATE: 11/28/2018 SUBJECTIVE: The patient is arousable. He reports fatigue. He has a cough, but is unable to clear his secretions. OBJECTIVE: Vital Signs: The patient has been afebrile for the last 24 hours. Blood pressure 105/77, heart rate 106, respiratory rate 16, oxygen saturation 96% on nasal cannula. HEENT: Pupils are equal. Bitemporal wasting. Oropharynx appears clear. Neck: Supple. Chest: Coarse rhonchi bilaterally. Cardiac: S1, S2. Abdomen: Soft. Extremities: Trace edema. LABORATORIES: White blood count 13.40, hemoglobin 9.0, platelet count 119,000. Sodium 133, potassium 5.3, chloride 101, bicarbonate 19, BUN 113, creatinine 2.0. Chest x-ray reveals bilateral infiltrates which are unchanged. IMPRESSION: A 73-year-old with: 1. Severe chronic obstructive pulmonary disease. 2. Bilateral pneumonia. 3. Stage IV metastatic colon cancer. 4. Acute hypoxemic respiratory failure. 5. Severe esophageal dysfunction. 6. Ongoing tobacco use at the time of admission. 7. Status post fall with multiple rib fractures at the time of admission. 8. Severe protein-calorie malnutrition. 9. Continued poor performance status despite 2 week hospital stay. RECOMMENDATIONS: 1. Encourage oral intake as tolerated. 2. Continue bronchial hygiene. 3. Continue current antibiotics. 4. Continue medications for pain. 5. Agree with palliative care consult as outlined by Dr. Carranza. cc: Chetan Costa MD
[2018-11-28] MEDS: DULCOLAX PR SCH (21:38)
[2018-11-28] MEDS: MORPHINE IV PRN (21:38)
[2018-11-29] MEDS: DUONEB (A & A) INH SCH ×7 (01:20→23:18)
[2018-11-29] MEDS: ZYVOX 600 MG/D5W 600 MG/300 ML IVPB IV SCH ×2 (01:30→13:11)
[2018-11-29] MEDS: MAXIPIME 1 GM in NS 50 ML IV SCH ×2 (01:30→13:11)
[2018-11-29 06:18] LABS: BASO# 0.01 X1000 (0.0-0.2); BASO% 0.1 % (0.0-0.8); EOS# 0.08 X1000 (0.0-0.7); EOS% 0.6 % (0.0-10.0); HEMATOCRIT 30.8 % (42.0-52.0); HEMOGLOBIN 9.8 g/dL (14.0-18.0); IMM GRAN# 0.07 X1000 (0.0-0.04); IMM GRAN% 0.5 % (0.0-0.5); LYMPH# 0.58 X1000 (1.2-3.4); LYMPH% 4.5 % (20.5-51.1); MCH 33.2 PG (27-31); MCHC 31.8 g/dL (33-37); MCV 104.4 FL (81-99); MONO# 0.85 X1000 (0.11-0.59); MONO% 6.6 % (1.7-9.3); MPV 11.9 FL (7.4-10.4); NEUT# 11.23 X1000 (1.4-6.5); NEUT% 87.7 % (42.2-75.2); PLT 133 X1000 (130-400); RBC 2.95 XMIL (4.7-6.1); RDW 18.7 % (11.5-14.5); WBC 12.82 X1000 (4.8-10.8)
[2018-11-29 07:01] LABS: CALCIUM 8.7 mg/dL (8.8-10.2); CREATININE 1.7 mg/dL (0.7-1.2); POTASSIUM 5.4 mmol/L (3.5-5.1)
--- NOTE | 2018-11-29 07:26 | Diag Imaging Result Doc PS360 ---
EXAM: CHEST-PORTABLE 11/29/2018 HISTORY: respiratory failure TECHNIQUE: AP portable at 0544 COMMENT: There is a Port-A-Cath on the right. There is diffuse interstitial opacity with areas of denser opacification of the left lower lobe and the lower portion of the right upper lobe. This has not changed appreciably since 11/28/2018 or 11/27/2018 but is slightly better than on 11/26/2018. IMPRESSION: Bronchopneumonia plus minus pulmonary edema. Electronically signed by Zeeshan Croft 11/29/2018 7:24 AM
[2018-11-29] MEDS: MUCOMYST 20% INH SCH ×2 (07:44→19:10)
[2018-11-29] MEDS: SODIUM CHLORIDE 0.9% INJ SCH (09:21)
[2018-11-29] MEDS: MYCOSTATIN SUSP PO SCH ×4 (09:21→21:12)
[2018-11-29] MEDS: HEPARIN SUBQ SCH ×2 (09:21→21:12)
[2018-11-29] MEDS: PROTONIX IV SCH ×2 (09:21→21:12)
[2018-11-29] MEDS: MEGACE LIQUID PO SCH (09:21)
[2018-11-29] MEDS: THERA M PLUS PO SCH (09:22)
[2018-11-29] MEDS: CARDIZEM CD PO SCH (09:22)
[2018-11-29] MEDS: IMDUR PO SCH (09:22)
[2018-11-29] MEDS: FOLIC ACID PO SCH (09:22)
[2018-11-29] MEDS: MUCINEX PO SCH ×2 (09:22→21:11)
[2018-11-29] MEDS: LOPRESSOR PO SCH ×2 (09:22→21:12)
[2018-11-29] MEDS: OXY IR PO PRN ×3 (09:30→18:36)
--- NOTE | 2018-11-29 15:53 | PROGRESS NOTE ---
DATE: 11/29/2018 SUBJECTIVE: The patient is sitting up eating breakfast. He has no complaints. OBJECTIVE: Vital Signs: Temperature 98.4, blood pressure 139/62, heart rate 97, respirations 26. O2 sats 100% on 4 L nasal cannula. Intake 670, output 2.6 L. General: This is a chronically ill- appearing elderly male sitting up in bed in no acute distress . HEENT: Head normocephalic atraumatic. Heart: S1, S2 normal. Regular rate and rhythm. Lungs: Equal air entry bilaterally. No wheezing. No rales. Abdomen: Positive bowel sounds. Soft, nontender, nondistended. Extremities: 1+ edema. Neurologic: The patient is alert and oriented x3. LABS: White blood cell count 12, hemoglobin 9.8, hematocrit 30, platelets 133,000. Sodium 138, potassium 5.4, chloride 106, CO2 16, BUN 102, creatinine 1.7, glucose 153. Chest x-ray shows pneumonia with pulmonary edema. ASSESSMENT AND PLAN: 1. Acute hypoxemic respiratory failure. Multifactorial. Continue to treat the underlying issues. 2. Bilateral lobe pneumonia. Continue with the current antibiotic regimen. 3. COPD. Continue with bronchodilator therapy and supplemental oxygen. 4. Acute kidney injury on chronic kidney disease. Slightly improved today. Continue to avoid nephrotoxic agents. 5. Metabolic acidosis. Will add sodium bicarbonate. 6. Stage IV metastatic colon cancer. Aware. 7. Multiple rib fractures status post fall at home. Aware. 8. Esophageal dysmotility. Continue with strict aspiration precautions. 9. Disposition. The patient states that he wants to remain a full code. We will continue with the current treatment plan. cc: Angie Carranza MD [facility]
[2018-11-29] MEDS: SODIUM BICARBONATE PO SCH (21:12)
[2018-11-29] MEDS: MORPHINE IV PRN (21:16)
[2018-11-29] MEDS: DULCOLAX PR SCH (21:19)
[2018-11-30] MEDS: MAXIPIME 1 GM in NS 50 ML IV SCH ×2 (00:58→13:51)
[2018-11-30] MEDS: ZYVOX 600 MG/D5W 600 MG/300 ML IVPB IV SCH ×2 (01:02→13:51)
[2018-11-30] MEDS: DUONEB (A & A) INH SCH ×6 (03:14→23:29)
[2018-11-30 06:13] LABS: BASO# 0.02 X1000 (0.0-0.2); BASO% 0.2 % (0.0-0.8); EOS# 0.08 X1000 (0.0-0.7); EOS% 0.8 % (0.0-10.0); HEMATOCRIT 29.5 % (42.0-52.0); HEMOGLOBIN 9.4 g/dL (14.0-18.0); IMM GRAN# 0.05 X1000 (0.0-0.04); IMM GRAN% 0.5 % (0.0-0.5); LYMPH% 6.3 % (20.5-51.1); MCHC 31.9 g/dL (33-37); MCV 103.5 FL (81-99); MONO# 0.62 X1000 (0.11-0.59); MONO% 6.5 % (1.7-9.3); MPV 11.5 FL (7.4-10.4); NEUT% 85.7 % (42.2-75.2); PLT 127 X1000 (130-400); RBC 2.85 XMIL (4.7-6.1); RDW 18.5 % (11.5-14.5); WBC 9.57 X1000 (4.8-10.8)
[2018-11-30 06:19] LABS: CALCIUM 8.9 mg/dL (8.8-10.2); CREATININE 1.8 mg/dL (0.7-1.2); POTASSIUM 5.2 mmol/L (3.5-5.1)
--- NOTE | 2018-11-30 06:50 | Diag Imaging Result Doc PS360 ---
EXAM: CHEST-PORTABLE HISTORY: respiratory failure TECHNIQUE: Portable chest single view COMPARISON: 11/29/2018 FINDINGS: The lungs are well expanded. There are sternal wires and a right sided portacatheter. The heart is not enlarged. There are bilateral infiltrates. These are slightly less dense in the mid right lung than they were on the prior study. Questionable mild worsening in the right base. No improvement on the left. Questionable trace left pleural fluid. IMPRESSION: Slight interval improvement in the mid right lung. Electronically signed by Rudy Agrawal 11/30/2018 6:47 AM
[2018-11-30 07:35] LABS: LYMPHS 4 % (21-51); MONO 6 % (1-9); SEGS 90 % (42-75)
[2018-11-30] MEDS: MUCOMYST 20% INH SCH ×2 (08:22→19:23)
[2018-11-30] MEDS: MEGACE LIQUID PO SCH (09:35)
[2018-11-30] MEDS: IMDUR PO SCH (09:36)
[2018-11-30] MEDS: THERA M PLUS PO SCH (09:36)
[2018-11-30] MEDS: CARDIZEM CD PO SCH (09:36)
[2018-11-30] MEDS: PROTONIX IV SCH ×2 (09:36→22:16)
[2018-11-30] MEDS: LOPRESSOR PO SCH ×2 (09:36→22:16)
[2018-11-30] MEDS: HEPARIN SUBQ SCH ×2 (09:36→22:16)
[2018-11-30] MEDS: MYCOSTATIN SUSP PO SCH ×4 (09:36→22:16)
[2018-11-30] MEDS: SODIUM CHLORIDE 0.9% INJ SCH (09:36)
[2018-11-30] MEDS: MUCINEX PO SCH ×2 (09:36→22:16)
[2018-11-30] MEDS: FOLIC ACID PO SCH (09:37)
[2018-11-30] MEDS: SODIUM BICARBONATE PO SCH ×2 (09:37→22:16)
[2018-11-30] MEDS: OXY IR PO PRN ×2 (10:16→19:03)
--- NOTE | 2018-11-30 10:59 | PROGRESS NOTE ---
DATE: 11/30/2018 SUBJECTIVE: The patient is sitting up in bed watching TV. No acute events noted overnight. OBJECTIVE: Vital Signs: Temperature 97.4 degrees, blood pressure 164/83, heart rate 92, respirations 20 and O2 saturations 100% on 2 L nasal cannula. General: This is a chronically ill- appearing elderly male lying in bed in no acute distress. Heart: S1, S2 normal. Regular rate and rhythm. Lungs: Equal air entry bilaterally. No crackles. No rales. Abdomen: Positive bowel sounds. Soft, nontender, and nondistended. Extremities: No edema. No cyanosis. Neurologic: The patient is alert and oriented x3. LABORATORY: White blood cell count 9.5, hemoglobin 9.4, hematocrit 29, and platelets 127,000. Sodium 138, potassium 5.2, chloride 108, CO2 20, BUN 96, creatinine 1.8, and glucose 153. Chest x-ray shows bilateral infiltrates and left pleural fluid. ASSESSMENT AND PLAN: 1. Acute hypoxemic respiratory failure. Continue to treat the underlying issues. 2. Bilateral lobe pneumonia. Continue on the current antibiotic regimen. 3. Chronic obstructive pulmonary disease. Continue with bronchodilator therapy and supplemental oxygen. 4. Acute kidney injury on chronic kidney disease. Improved. 5. Metabolic acidosis. Improved. Continue on the sodium bicarbonate tablets. 6. Stage IV metastatic colon cancer. Aware. 7. Multiple rib fracture status post fall at home. Aware. 8. Esophageal dysmotility. Continue with strict aspiration precautions. 9. Disposition. The patient has a poor prognosis. Continue with the current treatment plan. cc: Angie Carranza MD [facility]
--- NOTE | 2018-11-30 19:52 | PULMONOLOGY PROGRESS NOTE ---
DATE: 11/30/2018 SUBJECTIVE: The patient is arousable and alert. He reports he is having a bad day due to severe fatigue and generalized pain. OBJECTIVE: Vital Signs: BP 145/62, heart rate 102, respiratory rate 22, oxygen saturation 100% on 2 L per nasal cannula. HEENT: Pupils are equal and reactive. Oropharynx is clear. Neck: Is supple. Chest: Reveals good air entry bilaterally with occasional rhonchi. Cardiac: S1-S2. Abdomen: Is soft. Extremities: Reveal muscle wasting. LABORATORIES: Chest x-ray reveals bilateral infiltrates with marginal improvement. Sodium 138, potassium 5.2, chloride 108, bicarbonate 20, BUN 96, creatinine 1.8. IMPRESSION: 73-year-old with 1. Severe chronic obstructive pulmonary disease. 2. Stage IV metastatic colon cancer. 3. Bilateral pneumonia. 4. Hypoxemic respiratory failure. 5. Esophageal dysfunction. 6. Tobacco use. 7. Multiple rib fractures associated with a fall prior to admission. 8. Severe protein calorie malnutrition. 9. Poor performance status despite prolonged hospital stay. RECOMMENDATION: 1. Encourage p.o. intake. 2. Continue bronchial hygiene. 3. Consider discontinuing antibiotics. 4. Continue pain medications. 5. Ongoing end of life discussions. The patient is weak and has a poor performance status. He is not currently a candidate for additional chemotherapy unless he shows significant improvement. cc: Chetan Costa MD
[2018-11-30] MEDS: DULCOLAX PR SCH (22:17)
[2018-12-01] MEDS: MAXIPIME 1 GM in NS 50 ML IV SCH ×3 (01:18→19:58)
[2018-12-01] MEDS: OXY IR PO PRN ×4 (01:18→21:03)
[2018-12-01] MEDS: ZYVOX 600 MG/D5W 600 MG/300 ML IVPB IV SCH ×2 (02:00→13:11)
[2018-12-01] MEDS: DUONEB (A & A) INH SCH ×6 (03:07→23:11)
[2018-12-01 05:56] LABS: HEMATOCRIT 31.4 % (42.0-52.0); HEMOGLOBIN 9.9 g/dL (14.0-18.0); MCH 33.6 PG (27-31); MCHC 31.5 g/dL (33-37); MCV 106.4 FL (81-99); MPV 11.1 FL (7.4-10.4); RBC 2.95 XMIL (4.7-6.1); RDW 18.8 % (11.5-14.5); WBC 9.13 X1000 (4.8-10.8)
[2018-12-01 06:36] LABS: CALCIUM 9.1 mg/dL (8.8-10.2); CREATININE 1.5 mg/dL (0.7-1.2); POTASSIUM 5.7 mmol/L (3.5-5.1)
[2018-12-01] MEDS ORDERED: D50W SYRINGE IV ONE (06:38)
[2018-12-01] MEDS ORDERED: ALBUTEROL 0.5% INH CONC FOR HYPERKALEMIA INH ONE (06:38)
[2018-12-01] MEDS ORDERED: HUMULIN R IV ONE (06:39)
[2018-12-01] MEDS ORDERED: SODIUM BICARBONATE 8.4% IV ONE (06:40)
[2018-12-01] MEDS: MUCOMYST 20% INH SCH ×2 (07:43→19:00)
--- NOTE | 2018-12-01 07:46 | Diag Imaging Result Doc PS360 ---
EXAM: CHEST-PORTABLE - 12/01/2018 HISTORY: respiratory failure TECHNIQUE: Portable chest COMPARISON: 11/30/2018 FINDINGS: Central venous catheter remains in place. There has been overall decrease in bilateral infiltrates. There is residual infiltrate which is most prominent at the inferior right upper lobe. There is a small left pleural effusion. There is no pneumothorax identified. Heart size appears within normal limits. IMPRESSION: Overall decrease in bilateral infiltrates compared to prior. Electronically signed by Shawn Camargo 12/01/2018 7:44 AM
[2018-12-01] MEDS: PROTONIX IV SCH ×3 (09:39→20:20)
[2018-12-01] MEDS: MEGACE LIQUID PO SCH (09:39)
[2018-12-01] MEDS: THERA M PLUS PO SCH (09:39)
[2018-12-01] MEDS: LOPRESSOR PO SCH ×3 (09:39→20:20)
[2018-12-01] MEDS: MYCOSTATIN SUSP PO SCH ×5 (09:39→21:08)
[2018-12-01] MEDS: HEPARIN SUBQ SCH ×3 (09:39→20:20)
[2018-12-01] MEDS: IMDUR PO SCH (09:39)
[2018-12-01] MEDS: CARDIZEM CD PO SCH (09:40)
[2018-12-01] MEDS: MUCINEX PO SCH ×3 (09:40→20:20)
[2018-12-01] MEDS: FOLIC ACID PO SCH (09:40)
[2018-12-01] MEDS: SODIUM BICARBONATE PO SCH ×3 (09:40→20:20)
[2018-12-01] MEDS: KAYEXALATE PO ONE ×2 (13:11→13:18)
--- NOTE | 2018-12-01 19:05 | PROGRESS NOTE ---
DATE: 12/01/2018 SUBJECTIVE: The patient is resting comfortably in bed. No acute events noted overnight. OBJECTIVE: Vital signs: Temperature 98.5 degrees, blood pressure 124/59, heart rate 95, respirations 20, O2 saturation 96% on 3 L nasal cannula. General: This is an elderly male lying in bed in no acute distress. Heart: S1, S2 normal. Regular rate and rhythm. Lungs: Equal air entry bilaterally. Coarse breath sounds. Abdomen: Positive bowel sounds. Soft, nontender, nondistended. Extremities: Trace pedal edema. Neurologic: The patient is alert and oriented x3. LABORATORY DATA: White blood cell count 9.1, hemoglobin 9.9, hematocrit 31, platelets 132,000. Sodium 141, potassium 5.3, chloride 110, BUN 93, creatinine 1.5, glucose 135. DIAGNOSTIC DATA: Chest x-ray shows decrease in bilateral infiltrates. ASSESSMENT AND PLAN: 1. Acute hypoxemic respiratory failure. Continue to treat the pneumonia. 2. Bilateral lobe pneumonia. Continue with intravenous antibiotic therapy. 3. Chronic obstructive pulmonary disease. Continue with supplemental oxygen and bronchodilator therapy. 4. Acute kidney injury on chronic kidney disease. Stable. 5. Persistent hyperkalemia. Will order urine studies. Will treat the high potassium. 6. Metabolic acidosis. Continue on the sodium bicarbonate tablets. 7. Stage IV metastatic colon cancer. Aware. 8. Multiple rib fractures status post fall at home. Aware. 9. Esophageal dysmotility. Continue with aspiration precautions. 10. Disposition. The patient will likely need inpatient rehab placement. Camera Storage Clerk is working on placement for the patient. cc: Angie Carranza MD [facility]
[2018-12-01] MEDS: DULCOLAX PR SCH ×2 (19:58→20:19)
--- NOTE | 2018-12-01 21:29 | PULMONOLOGY PROGRESS NOTE ---
DATE: 12/01/2018 SUBJECTIVE: The patient reports fatigue, but less pain today. He continues to have a poor appetite. OBJECTIVE: Vital signs: The patient is awake, alert and conversant. The patient has been afebrile for the last 24 hours. Blood pressure 124/59, heart rate 95, respiratory rate 20,oxygen saturation 96% on 3 L nasal cannula. HEENT: Pupils are equal and reactive. Oropharynx is clear. Neck: Supple. Chest: Reveals coarse rhonchi bilaterally. Cardiac exam: S1-S2. Abdomen: Soft. Extremities: Reveal trace edema. LABORATORIES: Chest x-ray reveals mild decreased bilateral infiltrates. White blood count 9.13, hemoglobin 9.9, platelet count 132,000. Sodium 141, potassium 5.7, chloride 110, bicarbonate 19, BUN 93, creatinine 1.5. IMPRESSION: A 73-year-old with: 1. Severe chronic obstructive pulmonary disease. 2. Bilateral pneumonia. 3. Stage IV metastatic colon cancer. 4. Hypoxemic respiratory failure. 5. Esophageal dysfunction. 6. Status post multiple rib fractures. 7. Poor performance status. He has had marginal improvement. RECOMMENDATION: 1. Encourage p.o. intake. 2. Continue bronchial hygiene. 3. Kayexalate for elevated potassium and acute renal failure. 4. Consider discontinuing antibiotics soon. He has received a course for his pneumonia. cc: Chetan Costa MD
[2018-12-02] MEDS: MORPHINE IV PRN ×2 (00:02→17:44)
[2018-12-02] MEDS: MAXIPIME 1 GM in NS 50 ML IV SCH ×2 (01:57→13:04)
[2018-12-02] MEDS: ZYVOX 600 MG/D5W 600 MG/300 ML IVPB IV SCH ×2 (01:57→13:04)
[2018-12-02] MEDS: OXY IR PO PRN ×3 (02:32→17:16)
[2018-12-02] MEDS: DUONEB (A & A) INH SCH ×6 (03:05→23:21)
[2018-12-02 06:33] LABS: CREATININE 1.6 mg/dL (0.7-1.2); POTASSIUM 5.8 mmol/L (3.5-5.1)
[2018-12-02 06:50] LABS: HEMOGLOBIN 9.3 g/dL (14.0-18.0); MCH 33.3 PG (27-31); MCV 107.5 FL (81-99); MPV 11.9 FL (7.4-10.4); RBC 2.79 XMIL (4.7-6.1); RDW 18.8 % (11.5-14.5); WBC 12.19 X1000 (4.8-10.8)
[2018-12-02] MEDS ORDERED: HUMULIN R IV ONE (06:51)
[2018-12-02] MEDS ORDERED: ALBUTEROL 0.5% INH CONC FOR HYPERKALEMIA INH ONE (06:51)
[2018-12-02] MEDS ORDERED: D50W SYRINGE IV ONE (06:51)
[2018-12-02] MEDS ORDERED: SODIUM BICARBONATE 8.4% IV ONE (06:53)
--- NOTE | 2018-12-02 07:33 | Diag Imaging Result Doc PS360 ---
EXAM: CHEST-PORTABLE HISTORY: respiratory failure TECHNIQUE: Portable chest single view COMPARISON: 12/01/2018 FINDINGS: The lungs are well expanded. No change in the right-sided portacatheter. There are increased interstitial markings with pulmonary edema. Infiltrates in the mid right lung are slightly less dense. No definite change in the lung bases. Small left pleural effusion. IMPRESSION: Slight improvement in the mid right lung infiltrates. Electronically signed by Rudy Agrawla 12/02/2018 7:30 AM
[2018-12-02] MEDS: MUCOMYST 20% INH SCH ×2 (08:03→19:06)
[2018-12-02] MEDS ORDERED: CALCIUM GLUCONATE 1 GM in NS 50 ML IV ONE (09:00)
[2018-12-02] MEDS ORDERED: VELTASSA PO SCH (09:00)
[2018-12-02] MEDS ORDERED: CARDIZEM IV ONE (09:04)
[2018-12-02] MEDS ORDERED: CARDIZEM 125/NS 125 MG/125 ML IVPB IV SCH (09:15)
[2018-12-02] MEDS: SODIUM CHLORIDE 0.9% INJ SCH (09:39)
[2018-12-02] MEDS: MUCINEX PO SCH ×2 (09:39→20:25)
[2018-12-02] MEDS: MYCOSTATIN SUSP PO SCH ×4 (09:39→23:02)
[2018-12-02] MEDS: PROTONIX IV SCH ×2 (09:39→20:25)
[2018-12-02] MEDS: SODIUM BICARBONATE PO SCH ×2 (09:39→20:25)
[2018-12-02] MEDS: THERA M PLUS PO SCH (09:39)
[2018-12-02] MEDS: IMDUR PO SCH (09:39)
[2018-12-02] MEDS: LOPRESSOR PO SCH ×2 (09:39→20:25)
[2018-12-02] MEDS: FOLIC ACID PO SCH (09:39)
[2018-12-02] MEDS: HEPARIN SUBQ SCH (09:39)
[2018-12-02] MEDS: CARDIZEM CD PO SCH (09:40)
[2018-12-02] MEDS: MEGACE LIQUID PO SCH (09:45)
[2018-12-02] MEDS ORDERED: CORDARONE 360 MG/D5W 360 MG/200 ML IV.SOLN IV ONE (10:12)
[2018-12-02] MEDS ORDERED: CORDARONE 150 MG/D5W 150 MG/100 ML IV.SOLN IV ONE (10:12)
[2018-12-02 11:11] LABS: URINE SOURCE CATH
[2018-12-02 11:17] LABS: BILIRUBIN URINE NEGATIVE (NEGATIVE); BLOOD URINE MODERATE (NEGATIVE); COLOR YELLOW; GLUCOSE URINE NEGATIVE (NEGATIVE); KETONE URINE NEGATIVE (NEGATIVE); LEUKOCYTES URINE LARGE (NEGATIVE); NITRITE URINE NEGATIVE (NEGATIVE); PROTEIN URINE 300 mg/dL (NEGATIVE); TURBIDITY URINE HAZY (CLEAR); UROBILINOGEN URINE NORMAL (NORMAL)
[2018-12-02 11:29] LABS: UR EPITHELIAL CELLS <10 /HPF (<10); URINE BACTERIA NEGATIVE /HPF; URINE RBC TNTC /HPF (<10); URINE WBC TNTC /HPF (<10)
[2018-12-02 11:30] LABS: URINE CASTS NONE SEEN; URINE CRYSTALS NONE SEEN; URINE SMALL ROUND CELLS NONE SEEN; URINE YEAST PRESENT
[2018-12-02 11:33] LABS: FREE T4 1.19 ng/dL (0.93-1.70); TSH 1.34 uIUmL (0.27-4.20)
[2018-12-02 13:46] LABS: UR POTASSIUM 49.6 mmoll
[2018-12-02 13:52] LABS: UR CREAT RANDOM 55.7 mg/dL (14-26); UR POTASSIUM 49.8 mmoll
[2018-12-02 14:02] LABS: UR PROT RANDOM 174.9 mg/dL
[2018-12-02] MEDS ORDERED: CORDARONE 540 MG in D5W 289.2 ML IV ONE (16:12)
--- NOTE | 2018-12-02 17:45 | PROGRESS NOTE ---
DATE: 12/02/2018 SUBJECTIVE: The patient was noted to be in atrial fibrillation with RVR this morning. He has no other complaints at this time. OBJECTIVE: Vital Signs: Temperature 98.7 degrees, blood pressure 120/62, heart rate 106, respirations 20, O2 saturation 99% on 3 L nasal cannula. Intake 230, output 1.4 L. General: This is a chronically ill-appearing elderly male lying in bed in no acute distress. Heart: S1, S2 normal. Irregularly irregular rhythm. Lungs: Coarse breath sounds bilaterally. Abdomen: Positive bowel sounds. Soft, nontender, nondistended. Extremities: No edema, no cyanosis. Neurologic: The patient is awake and alert. LABORATORY DATA: White blood cell count 12, hemoglobin 9.3, hematocrit 30, platelets 116,000. Sodium 143, potassium 5.2, chloride 113, CO2 of 21, BUN 81, creatinine 1.6, glucose 145. Chest x-ray shows improvement in the mid right lung infiltrate. ASSESSMENT AND PLAN: 1. Acute hypoxemic respiratory failure. Continue to treat the underlying infection. 2. Bilateral lobe pneumonia. Slightly improved. Continue with antibiotic therapy. 3. Atrial fibrillation with RVR. Management as per the rn paralegal. 4. Persistent hyperkalemia. This may represent type 4 renal tubular acidosis. However, the patient's urine pH is 6. The TTKG is 4.1 which would indicate a low aldosterone state. Will start Veltassa. 5. Acute kidney injury on chronic kidney disease. Slowly improving. The patient has adequate urine output. 6. Stage IV metastatic colon cancer. Aware. 7. Non anion gap hyperchloremic metabolic acidosis. Stable. Continue bicarbonate tablets. 8. Multiple rib fractures status post fall at home. Aware. 9. Esophageal dysmotility. Continue with strict aspiration precautions. 10. Disposition. Finance Business Partner is working on inpatient rehab placement for the patient. cc: Angie Carranza MD [facility]
[2018-12-02] MEDS: DULCOLAX PR SCH (21:25)
[2018-12-03] MEDS: OXY IR PO PRN ×5 (00:52→20:11)
[2018-12-03] MEDS: MAXIPIME 1 GM in NS 50 ML IV SCH ×2 (01:06→14:33)
[2018-12-03] MEDS: DUONEB (A & A) INH SCH ×6 (03:15→23:03)
[2018-12-03] MEDS: MORPHINE IV PRN (03:47)
[2018-12-03] MEDS: ZYVOX 600 MG/D5W 600 MG/300 ML IVPB IV SCH ×2 (05:04→17:28)
[2018-12-03 05:32] LABS: HEMATOCRIT 28.5 % (42.0-52.0); MCH 33.7 PG (27-31); MCHC 31.6 g/dL (33-37); MCV 106.7 FL (81-99); MPV 11.4 FL (7.4-10.4); RBC 2.67 XMIL (4.7-6.1); RDW 18.7 % (11.5-14.5); WBC 11.42 X1000 (4.8-10.8)
[2018-12-03 05:40] LABS: CREATININE 1.5 mg/dL (0.7-1.2); POTASSIUM 5.2 mmol/L (3.5-5.1)
--- NOTE | 2018-12-03 06:59 | Diag Imaging Result Doc PS360 ---
EXAM: CHEST-PORTABLE HISTORY: respiratory failure TECHNIQUE: Portable chest single view COMPARISON: 12/02/2018 FINDINGS: The patient is rotated to the left. No change in the right-sided portacatheter. No pneumothorax. There is atelectasis and/or basilar infiltrates on the left and there is a small left pleural effusion. There are several rib fractures. Mild pulmonary edema. The overall appearance of the chest is quite similar to that of the prior exam. IMPRESSION: Stable chest. Electronically signed by Rudy Agrawal 12/03/2018 6:56 AM
--- NOTE | 2018-12-03 07:35 | EKG Report ---
Test Performed on : 12/02/2018 08:49:18 AM Test Reason : CONVERTED TO AFIB Blood Pressure : / mmHG Vent. Rate : 125 BPM Atrial Rate : 120 BPM P-R Int : 000 ms QRS Dur : 102 ms QT Int : 324 ms P-R-T Axes : 000 053 045 degrees QTc Int : 467 ms Atrial fibrillation. with rapid ventricular response. Incomplete right bundle branch block ST & T wave abnormality, consider anterior ischemia Abnormal ECG When compared with ECG of 01-DEC-2018 23:44, (Unconfirmed) Atrial fibrillation. has replaced Sinus rhythm. ST no longer elevated in Inferior leads ST now depressed in Lateral leads Nonspecific T wave abnormality no longer evident in Inferior leads Confirmed by Steffanie GIRON, Vicente ([id number]) on 12/03/2018 9:05:18 AM
--- NOTE | 2018-12-03 07:37 | EKG Report ---
Test Performed on : 12/01/2018 11:44:09 PM Test Reason : abnormal rhythm Blood Pressure : / mmHG Vent. Rate : 128 BPM Atrial Rate : 128 BPM P-R Int : 168 ms QRS Dur : 120 ms QT Int : 274 ms P-R-T Axes : 099 077 029 degrees QTc Int : 400 ms Sinus tachycardia. Right bundle branch block Abnormal ECG When compared with ECG of 26-NOV-2018 06:44, ND interval has decreased Vent. rate has increased BY [address] elevation now present in Inferior leads ST more depressed in Anterior leads Non-specific change in ST segment in Lateral leads Confirmed by Steffanie GIRON, Vicente ([id number]) on 12/03/2018 9:02:51 AM
[2018-12-03] MEDS: MUCOMYST 20% INH SCH ×2 (07:58→20:38)
[2018-12-03] MEDS: MEGACE LIQUID PO SCH (09:14)
[2018-12-03] MEDS: LOPRESSOR PO SCH ×2 (09:14→20:02)
[2018-12-03] MEDS: MUCINEX PO SCH ×2 (09:14→20:02)
[2018-12-03] MEDS: PROTONIX IV SCH ×2 (09:14→20:01)
[2018-12-03] MEDS: THERA M PLUS PO SCH (09:14)
[2018-12-03] MEDS: FOLIC ACID PO SCH (09:14)
[2018-12-03] MEDS: MYCOSTATIN SUSP PO SCH ×4 (09:14→20:02)
[2018-12-03] MEDS: SODIUM BICARBONATE PO SCH ×2 (09:14→20:02)
[2018-12-03] MEDS: CARDIZEM CD PO SCH (09:14)
[2018-12-03] MEDS: IMDUR PO SCH (09:14)
[2018-12-03] MEDS: CORDARONE PO SCH (12:02)
--- NOTE | 2018-12-03 13:32 | PROGRESS NOTE ---
DATE: 12/03/2018 SUBJECTIVE: The patient is sitting up in bed. He does complain of generalized pain. No acute events noted overnight. OBJECTIVE: Vital Signs: Temperature 97.6 degrees, blood pressure 120/62, heart rate 72, respirations 20, O2 saturation is 100% on 2 L nasal cannula. General: This is a chronically ill- appearing, elderly male lying in bed, in no acute distress. Heart: S1, S2 normal. Lungs: Diminished breath sounds at the bases. Coarse breath sounds. Abdomen: Positive bowel sounds. Soft, nontender, nondistended. Extremities: Trace pedal edema. Neurologic: The patient is alert and oriented x3. Labs: White blood cell count 11, hemoglobin 9, hematocrit 28, platelets 105,000. Sodium 135, potassium 5.2, chloride 108, CO2 19, BUN 72, creatinine 1.5, glucose 116. Chest x-ray shows basilar infiltrates on the left and a small left pleural effusion, mild pulmonary edema. ASSESSMENT AND PLAN: 1. Acute hypoxemic respiratory failure. Continue to treat the underlying pneumonia and pulmonary edema. 2. Bilateral lobe pneumonia. Improved. Management as per the leave manager. 3. Atrial fibrillation. Continue on Cardizem, Lopressor, amiodarone, and Eliquis. 4. Persistent hyperkalemia. Continue on Veltassa. We will await further recommendations from nephrology. 5. Acute kidney injury on chronic kidney disease. Improved. 6. Non-anion gap metabolic acidosis. Stable. 7. Multiple rib fracture status post fall at home. Aware. 8. Esophageal dysmotility. Continue with strict aspiration precautions. 9. Metastatic colon cancer. Aware. is following. Will discuss further chemo once the patient is released from Rehab. 10. Disposition. central services tech is working on inpatient rehab placement for the patient. cc: Angie Carranza MD [facility]
[2018-12-03] MEDS: NS 1,000 ML IV SCH (14:33)
--- NOTE | 2018-12-03 17:55 | NEPHROLOGY PROGRESS NOTE ---
DATE: 12/03/2018 SUBJECTIVE: The patient is sitting up in bed. He is eating some breakfast this morning. No complaints otherwise. OBJECTIVE: Vital Signs: Temperature 99.3 degrees, pulse 116, respiratory rate 20, blood pressure 140/70. Intake 750 mL and output 1.2 L. General: On exam, an elderly gentleman resting in bed. He is in no acute distress. He is chronically ill-appearing. HEENT: Normocephalic, atraumatic. Oral mucosa dry. Dentition poor. Neck: Supple without JVD. Cardiovascular: Regular rate and rhythm. Pulmonary: Decreased breath sounds with coarse sounds noted. No overt wheeze. Abdomen: Soft, with positive bowel sounds. Genitourinary: Not inspected. Extremities: Wasting. No clubbing, cyanosis or edema. Integumentary: Skin is warm and dry. LABORATORY DATA: WBC of 11.4, hemoglobin 9, platelets 105,000. Sodium 135, potassium 5.2, chloride 108, CO2 of 19, BUN 72, creatinine 1.5. He had a FENa of 0.4 and 3+ proteinuria, moderate blood and large leukocytes noted. ASSESSMENT AND PLAN: 1. Acute on chronic kidney disease. Creatinine is at the baseline, but his BUN is starting to slowly creep up again. Continue to monitor closely. May need some additional fluids. 2. Hyperkalemia. Secondary to 'poor distal tubular sodium delivery'. I will add NS and observe his response. Dictated by LIZBET Gale for Felix Colvin MD Face to face encounter, data reviewed, discussed with Yen Dunne on 12/03/18. I agree with the above assessment and plan of care. cc: Felix Colvin MD [facility]
[2018-12-03] MEDS: ELIQUIS PO SCH (20:02)
[2018-12-03] MEDS: DULCOLAX PR SCH (20:02)
[2018-12-04] MEDS: OXY IR PO PRN ×5 (02:13→21:47)
[2018-12-04] MEDS: MAXIPIME 1 GM in NS 50 ML IV SCH ×2 (02:15→12:32)
[2018-12-04] MEDS: NS 1,000 ML IV SCH ×2 (02:15→14:54)
[2018-12-04] MEDS: DUONEB (A & A) INH SCH ×6 (03:05→23:00)
[2018-12-04] MEDS: MORPHINE IV PRN ×2 (04:25→12:32)
[2018-12-04] MEDS: VELTASSA PO SCH (05:04)
[2018-12-04] MEDS: ZYVOX 600 MG/D5W 600 MG/300 ML IVPB IV SCH (05:04)
[2018-12-04 06:10] LABS: CALCIUM 8.5 mg/dL (8.8-10.2); CREATININE 1.7 mg/dL (0.7-1.2); POTASSIUM 4.8 mmol/L (3.5-5.1)
[2018-12-04 06:36] LABS: HEMATOCRIT 27.8 % (42.0-52.0); HEMOGLOBIN 8.8 g/dL (14.0-18.0); MCH 33.5 PG (27-31); MCHC 31.7 g/dL (33-37); MCV 105.7 FL (81-99); MPV 11.2 FL (7.4-10.4); RBC 2.63 XMIL (4.7-6.1); RDW 18.7 % (11.5-14.5); WBC 11.35 X1000 (4.8-10.8)
--- NOTE | 2018-12-04 07:25 | Diag Imaging Result Doc PS360 ---
EXAM: CHEST-PORTABLE INDICATION: respiratory failure TECHNIQUE: One view COMPARISON: 12/15/2018 FINDINGS: The right chest port is in stable position. Pulmonary venous congestion and interstitial edema is stable. There is a small left pleural effusion and adjacent atelectasis and/or infiltrate that is unchanged. No new consolidation is identified. Cardiac silhouette is stable. IMPRESSION: Stable chest. Electronically signed by Mandeep Lujan 12/04/2018 7:23 AM
[2018-12-04] MEDS: MUCOMYST 20% INH SCH ×2 (07:39→20:04)
[2018-12-04] MEDS: ELIQUIS PO SCH ×2 (09:17→21:48)
[2018-12-04] MEDS: PROTONIX IV SCH ×2 (09:17→21:47)
[2018-12-04] MEDS: SODIUM BICARBONATE PO SCH ×2 (09:17→21:47)
[2018-12-04] MEDS: MEGACE LIQUID PO SCH (09:17)
[2018-12-04] MEDS: CORDARONE PO SCH (09:17)
[2018-12-04] MEDS: FOLIC ACID PO SCH (09:17)
[2018-12-04] MEDS: MUCINEX PO SCH ×2 (09:17→21:47)
[2018-12-04] MEDS: THERA M PLUS PO SCH (09:17)
[2018-12-04] MEDS: LOPRESSOR PO SCH ×2 (09:17→21:48)
[2018-12-04] MEDS: IMDUR PO SCH (09:18)
[2018-12-04] MEDS: MYCOSTATIN SUSP PO SCH ×4 (09:18→21:48)
[2018-12-04] MEDS: CARDIZEM CD PO SCH (09:18)
--- NOTE | 2018-12-04 10:07 | NEPHROLOGY PROGRESS NOTE ---
DATE: 12/04/2018 SUBJECTIVE: Patient is sitting up in bed. States he has a little bit of shortness of breath. OBJECTIVE: Vital Signs: Temperature 98.4 degrees, pulse 90, respiratory rate 16, blood pressure 109/61. Intake 1.9 L. Output not measured. General: This is an elderly gentleman sitting up in bed. He is awake and alert. He is in no acute distress. HEENT: Normocephalic, atraumatic. PIERRE. Conjunctivae are pale. Oral mucosa moist. Poor dentition. Neck: Supple. No JVD. Cardiovascular: Regular rate and rhythm. Pulmonary: Continues with some rhonchi bilaterally. No wheeze. Abdomen: Soft, positive bowel sounds. : Not inspected. Extremities: No clubbing, cyanosis, edema wasted. Integumentary: Skin is warm and dry. Neurologic: Grossly nonfocal. LAB DATA: WBC of 11.3, hemoglobin 8.8, sodium 136, potassium 4.8, CO2 19, BUN 73, creatinine 1.7. He had a chest x-ray this morning. Has no changes from previous. ASSESSMENT AND PLAN: 1. Acute on chronic kidney disease. His creatinine and BUN with no significant changes. Continue to monitor. 2. Hyperkalemia secondary to poor distal tubular sodium delivery. He had normal saline added last night. Sodium level has come up and potassium level is currently normal. We would leave that normal saline going for 1 more day if he has no troubles with respiratory status. Nothing further to add. Continue to monitor. Dictated by LIZBET Gale for Felix Colvin MD Face to face encounter, data reviewed, discussed with Yen Dunne on 12/04/17. I agree with the above assessment and plan of care. cc: Felix Colvin MD [facility]
--- NOTE | 2018-12-04 10:18 | EKG Report ---
Test Performed on : 12/04/2018 10:07:22 AM Test Reason : Chest Pain Blood Pressure : / mmHG Vent. Rate : 105 BPM Atrial Rate : 374 BPM P-R Int : 000 ms QRS Dur : 098 ms QT Int : 294 ms P-R-T Axes : 000 045 017 degrees QTc Int : 388 ms Atrial flutter. with variable AV block. Incomplete right bundle branch block ST & T wave abnormality, consider anterior ischemia Abnormal ECG When compared with ECG of 02-DEC-2018 08:49, Atrial flutter. has replaced Atrial fibrillation. Nonspecific T wave abnormality now evident in Inferior leads Confirmed by Steffanie GIRON, Vicente ([id number]) on 12/05/2018 8:55:54 AM
--- NOTE | 2018-12-04 14:50 | PROGRESS NOTE ---
DATE: 12/04/2018 SUBJECTIVE: Patient resting in bed. Not in any obvious distress. OBJECTIVE: Vital Signs: As follows: Temperature 98.4, pulse 110, respiratory rate 20, blood pressure 129/72. O2 saturation 100%. HEENT: Atraumatic, normocephalic. Cardiovascular: S1, S2. Respiratory: Has evidence of good air entry bilaterally. Abdomen: Soft. Nontender. No masses felt. Extremities: No evidence of edema. Central Nervous System: No obvious focal deficit noted. LABS: As follows: WBC is 11.35, hematocrit is 37.8, with a platelet count of 104,000. Sodium is 136, potassium is 3.2, chloride is 107, bicarb is 19, BUN is 73, creatinine is 1.7. UA shows large amount of leukocytes with numerous WBCs. Urine culture positive for yeast. ASSESSMENT AND PLAN: 1. Acute respiratory failure. Maintain patient on oxygen supplementation. Treat primary lung conditions, including pulmonary edema as well as pneumonia. Pulmonary Team is following. 2. Bilateral lobe pneumonia. Most recent x-ray done today. Chest x-ray shows evidence of pulmonary vascular congestion as well as interstitial edema. There is a small left pleural effusion and adjacent atelectasis and/or infiltrate that is unchanged. No new consolidation is identified. Continue current antibiotic regimen. The patient is currently on linezolid as well as cefepime. Sputum culture showed rare gram-positive rods. 3. Atrial fibrillation. Continue rate controlling agents, along with antiarrhythmic as well as anticoagulation. 4. Acute kidney injury superimposed on chronic kidney disease. The patient is currently on intravenous fluids. We will need to be judicious with intravenous fluids in light of pulmonary edema. 5. Esophageal dysmotility. The patient will need to be on aspiration precaution. 6. Metastatic colon cancer, aware. Oncology Team is following. 7. Disposition: Will plan for discharge to rehab when considered appropriate by all consultants. cc: Jose Villegas MD [facility]
--- NOTE | 2018-12-04 18:21 | INFECTIOUS DISEASE CONSULT REP ---
DATE: 12/04/2018 The patient is unable to provide me a history and no family member is present. The information I got was from reviewing it in the computer. CONCLUSION: I have been asked to see the patient regarding antibiotic therapy. I agree with Dr. Costa that the patient at this time does not have an active infection and specifically, he does not have pneumonia. He has been on the same antibiotics, namely cefepime and Zyvox for 16 days which should be enough to clear most infections. I think the congestion that we are seeing on the chest x-ray is due to pulmonary venous congestion rather than infection. The patient has a urine culture positive for yeast. This represents an asymptomatic infection and it does not require antibiotic therapy. Likewise, the patient has 1 of 2 blood cultures growing a coagulase-negative Staph. This represents a contaminant and it is not necessary to treat with antibiotics for that also. RECOMMENDATIONS: I am going to discontinue the patient's current antibiotics and I have ordered a procalcitonin level. DISCUSSION: The patient initially was admitted to the hospital with chest pain. He has developed bilateral pulmonary venous congestion and possible atelectasis and/or infiltrate. The patient's lab studies thus far show a CBC with a white count of 11,350, hemoglobin 8.8, and platelet count 104,000. Creatinine is 1.7. GFR is 39. Urinalysis showed white cells but no bacteria. Urine culture grew yeast. The patient has 1 of 2 blood cultures which grew a coagulase-negative Staph. PAST MEDICAL HISTORY: 1. Coronary artery disease status post coronary artery bypass grafting. 2. Moderate mitral regurgitation. 3. Pulmonary artery hypertension. 4. Colon cancer with metastatic disease. 5. Hypertension. 6. Chronic kidney disease. 7. Atrial fibrillation. 8. Bladder surgery for bladder cancer. 9. Benign brain tumor. 10. Inguinal hernia. 11. The patient at one time apparently had oral candidiasis during this admission, but he does not have it now. The patient's. PAST SURGICAL HISTORY: 1. Coronary artery bypass grafting. 2. Bladder surgery. 3. Back surgery. 4. Inguinal hernia repair. 5. Placement of a right-sided Port-A-Cath. REVIEW OF SYSTEMS: Unable to be obtained from the patient. SOCIAL HISTORY: The patient is a . He lives with his grandson. The patient smokes cigarettes, but he does not drink alcoholic beverages or abuse drugs. ALLERGIES: Tylenol. HOME MEDICATIONS: Include the following: Albuterol inhaler, Eliquis, Lanoxin, diltiazem, Lasix, glipizide, ibuprofen, ipratropium inhaler, Megace, Lopressor, mirtazapine, morphine, omeprazole, oxycodone, and MiraLAX. PHYSICAL EXAMINATION: Vital Signs: Temperature is 98.4 degrees, pulse 110, respirations 20, blood pressure 129/72. The patient is 6 feet 2 inches tall, weighs 145 pounds. General: This is a chronically ill-appearing, elderly male. He is in no acute distress. Head, eyes, ears, nose, throat: He can hear my spoken words and see near objects. He does not have any white patches on his tongue at this time. His sinuses are not tender. Neck: There is no pain when he moves his head. Thorax: Patient has a Port-A-Cath present on the right side. The site is not erythematous or draining. Lungs: There were coarse rhonchi on the right side and on the left side his lungs were clear. Cardiovascular: Heart rate is irregular. Abdomen: Soft and nontender. Neurologic: The patient is awake. He can move his extremities but he is very weak. There is no tremor. He has a poor memory of his medical history. Integument: No rash noted. Thank you for the consult. cc: Burke Lamas MD
--- NOTE | 2018-12-04 20:54 | PULMONOLOGY PROGRESS NOTE ---
DATE: 12/04/2018 SUBJECTIVE: The patient is asleep. Upon arousal, he is without specific complaints. Each day I see him, he questions me as to whether he should do this or not. OBJECTIVE: Vital Signs: The patient has been afebrile for the last 24 hours. Blood pressure is 124/66, heart rate 97, oxygen saturation 99% on 2 L per nasal cannula. HEENT: Pupils are equal and reactive. Oropharynx is clear. Neck: Supple. Chest: Crackles in the lung bases. Cardiac: S1, S2. Abdomen: Soft. Extremities: Trace to 1+ edema. LABORATORIES: White blood count 11, hemoglobin 8.8, platelet count 104,000. Sodium 136, potassium 4.8, chloride 107, bicarbonate 19, BUN 73, creatinine 1.7. IMPRESSION: A 73-year-old with: 1. Severe chronic obstructive pulmonary disease. 2. Stage IV metastatic lung cancer. 3. Chronic hypoxemic respiratory failure. 4. Esophageal dysfunction. 5. Status post multiple rib fractures. 6. Ongoing poor performance status. RECOMMENDATIONS: 1. Continue oxygen for hypoxemic respiratory failure. 2. Agree with discontinuation of antibiotics as outlined per Infectious Disease. 3. Encourage oral intake. 4. Prognosis is poor. Hospice is recommended. cc: Chetan Costa MD
[2018-12-04] MEDS: DULCOLAX PR SCH (21:44)
[2018-12-04] MEDS: SODIUM CHLORIDE 0.9% INJ SCH (21:47)
[2018-12-05] MEDS: NS 1,000 ML IV SCH ×3 (01:18→21:19)
[2018-12-05] MEDS: DUONEB (A & A) INH SCH ×6 (03:00→23:18)
[2018-12-05] MEDS: OXY IR PO PRN ×2 (06:18→13:52)
[2018-12-05] MEDS: VELTASSA PO SCH (06:47)
--- NOTE | 2018-12-05 06:56 | Diag Imaging Result Doc PS360 ---
EXAM: CHEST-PORTABLE HISTORY: respiratory failure TECHNIQUE: Portable chest single view COMPARISON: 12/04/2018 FINDINGS: The patient is rotated to the right. There is a right-sided portacatheter. The heart is mildly prominent. There are bilateral infiltrates as well as small pleural effusions. The overall appearance is fairly similar to that of the prior study. IMPRESSION: No interval improvement. Electronically signed by Rudy Agrawal 12/05/2018 6:54 AM
[2018-12-05 07:23] LABS: BASO# 0.02 X1000 (0.0-0.2); BASO% 0.1 % (0.0-0.8); EOS# 0.26 X1000 (0.0-0.7); EOS% 1.5 % (0.0-10.0); HEMATOCRIT 28.7 % (42.0-52.0); HEMOGLOBIN 9.1 g/dL (14.0-18.0); IMM GRAN# 0.08 X1000 (0.0-0.04); IMM GRAN% 0.4 % (0.0-0.5); LYMPH# 0.67 X1000 (1.2-3.4); LYMPH% 3.8 % (20.5-51.1); MCH 32.7 PG (27-31); MCHC 31.7 g/dL (33-37); MCV 103.2 FL (81-99); MONO# 1.05 X1000 (0.11-0.59); MONO% 5.9 % (1.7-9.3); MPV 11.9 FL (7.4-10.4); NEUT# 15.71 X1000 (1.4-6.5); NEUT% 88.3 % (42.2-75.2); PLT 118 X1000 (130-400); RBC 2.78 XMIL (4.7-6.1); RDW 18.6 % (11.5-14.5); WBC 17.79 X1000 (4.8-10.8)
[2018-12-05 07:38] LABS: CALCIUM 8.5 mg/dL (8.8-10.2); CREATININE 1.4 mg/dL (0.7-1.2); POTASSIUM 4.6 mmol/L (3.5-5.1)
[2018-12-05 08:13] LABS: MONO 6 % (1-9); SEGS 94 % (42-75)
[2018-12-05] MEDS: MUCOMYST 20% INH SCH ×2 (08:18→19:28)
--- NOTE | 2018-12-05 09:06 | NEPHROLOGY PROGRESS NOTE ---
DATE: 12/05/2018 SUBJECTIVE: He complains of pain in his lower abdomen and lower back. No nausea or vomiting. No diarrhea or other new symptoms. OBJECTIVE: Vital Signs: Blood pressure 123/73, heart rate 89, respirations 23, afebrile. Intake 1.8 L; output 1.5 L. General: On physical examination, no acute distress. Skin: Warm and dry. Eyes: Conjunctivae are pink. Neck: Neck veins are not distended. Heart: Regular. No gallops. Lungs: Equal. No crackles or wheezes. Abdomen: Soft, nontender. Bowel sounds present. Extremities: No edema, clubbing or cyanosis. IMPRESSION: Hyperkalemia. Resolved. Secondary to poor distal tubular sodium delivery. This was treated with intravenous normal saline with prompt resolution. His BUN and creatinine are trending downward. I will leave his intravenous fluids as ordered, but it this should be monitored and discontinued if he develops volume expansion. I will sign off at this time, but if I can be of further assistance, please do not hesitate to call. cc: Felix Colvin MD
[2018-12-05] MEDS: SODIUM BICARBONATE PO SCH ×2 (09:33→21:01)
[2018-12-05] MEDS: CORDARONE PO SCH (09:33)
[2018-12-05] MEDS: FOLIC ACID PO SCH (09:33)
[2018-12-05] MEDS: PROTONIX IV SCH ×2 (09:33→21:01)
[2018-12-05] MEDS: SODIUM CHLORIDE 0.9% INJ SCH (09:33)
[2018-12-05] MEDS: MYCOSTATIN SUSP PO SCH ×4 (09:33→21:01)
[2018-12-05] MEDS: LOPRESSOR PO SCH ×2 (09:33→21:01)
[2018-12-05] MEDS: IMDUR PO SCH (09:33)
[2018-12-05] MEDS: ELIQUIS PO SCH ×2 (09:33→21:01)
[2018-12-05] MEDS: THERA M PLUS PO SCH (09:33)
[2018-12-05] MEDS: CARDIZEM CD PO SCH (09:33)
[2018-12-05] MEDS: MUCINEX PO SCH ×2 (09:34→21:01)
[2018-12-05] MEDS: MEGACE LIQUID PO SCH (09:42)
[2018-12-05] MEDS: MORPHINE IV PRN ×3 (09:43→21:01)
--- NOTE | 2018-12-05 16:16 | PROGRESS NOTE ---
DATE: 12/05/2018 SUBJECTIVE: The patient is resting in bed. Not in any obvious distress. OBJECTIVE: Vital signs: Temperature 98.1 degrees, pulse 88, respiratory 16, blood pressure is 115/58, oxygen saturation 100%. HEENT: Atraumatic, normocephalic. Cardiovascular: S1, S2. Respiratory: Occasional rhonchi. Abdomen: Soft, nontender. No masses felt. Extremities: Trace edema in the lower extremities. Central nervous system: No obvious focal deficits noted. LABS: WBC 17.79, hematocrit is 28.7, platelet 118,000. Sodium is 139, potassium 4.6, chloride is 110, bicarb is 18, BUN is 69, X-ray of the chest shows bilateral infiltrates as well as small pleural effusions. ASSESSMENT AND PLAN: 1. Acute respiratory failure. Maintain patient on supplemental oxygen. Pulmonology following. 2. Pulmonary edema. Today's chest x-ray seems fairly stable . Continue diuretics as needed. 3. Atrial fibrillation. Continue rate controlling agent, antiarrhythmic, as well as anticoagulation. 4. Acute kidney injury superimposed on chronic kidney disease. Renal function seems to be improving. 5. Esophageal dysmotility. Maintain patient on aspiration precaution. 6. Metastatic colon cancer. Aware. Oncology following. 7. Disposition. The patient will be discharged to rehab when considered appropriate by all consultants. cc: Jose Villegas MD MTDD
--- NOTE | 2018-12-05 19:52 | INFECTIOUS DISEASE PROGRESS NO ---
DATE: 12/05/2018 PRESENT ILLNESS: Mr. Bautista has had an extensive treatment with cefepime and Zyvox for bilateral pneumonia. He was taken off antibiotics and a procalcitonin is pending at this time. There is also an oral candidiasis. MEDICATIONS: His antimicrobials have been stopped. He is receiving nystatin swish and swallow. PHYSICAL EXAMINATION: Vital Signs: Temperature is 98.1 degrees, pulse rate 88, respiratory rate 26, blood pressure 115/58. Oxygen saturation is 98 percent on 2 L. General: This is a chronically ill-appearing, elderly gentleman. He is sitting up in the bed, currently in no acute distress. HEENT: Atraumatic, normocephalic. Oral mucous membranes are pink and moist. He states his mouth is sore, however. Conjunctivae are pale. Cardiovascular: Heart rate is irregular. Appears to be in atrial fibrillation on the monitor; however, the signal is poor. Respiratory: Lung sounds are clear in the upper lobes with rhonchi noted in the bases. Integumentary: There is a Port-A-Cath in place to the right chest. The site is without edema or erythema. Abdomen: Soft, flat, and nontender. Bowel sounds are active. Neurologic: He is awake, alert, and appropriate. Generalized weakness and deconditioning. LABORATORY AND X-RAY: Today, his white count is 17.79, hemoglobin 9.1, platelet count 118,000. Creatinine is 1.4. GFR 49. Chest x-ray today shows no improvement with bilateral infiltrates as well as small pleural effusion. ASSESSMENT AND PLAN: Mr. Bautista has completed a 16 day course of treatment with cefepime and Zyvox, and has now had his antibiotics stopped. The thought is that he may have pulmonary venous congestion rather than a pneumonia. Today, his white count has gone up. For now, a procalcitonin has been ordered and those results are pending. For now, we will continue the nystatin swish and swallow and wait until procalcitonin results come back before considering additional antibiotics. We will also order a CBC for in the morning as well as another chest x-ray. These plans have been discussed with and recommended by Dr. Lamas. COMORBIDITIES: Include that he is elderly with severe chronic obstructive pulmonary disease, stage IV metastatic lung cancer, and generalized deconditioning. Dictated by LIZBET Cartagena for Burke Lamas MD cc: Burke Lamas MD [facility]
[2018-12-05] MEDS: DULCOLAX PR SCH (21:19)
--- NOTE | 2018-12-05 22:53 | PULMONOLOGY PROGRESS NOTE ---
DATE: 12/05/2018 SUBJECTIVE: The patient is awake and alert. He reports his breathing "comes and goes." He has audible rhonchi. OBJECTIVE: BP 147/73, heart rate 104, respiratory rate 26, oxygen saturation 99% on nasal cannula. HEENT: Pupils are equal and reactive. Oropharynx is clear. Neck is supple. Chest reveals coarse rhonchi bilaterally. The patient has 1+ sacral edema. Abdomen is soft. Extremities reveal trace edema. LABORATORY DATA: White blood count 17,000, hemoglobin 9.1, platelet count 118,000. Sodium 139, potassium 4.6, chloride 110, bicarbonate 18, BUN 69, creatinine 1.4. DIAGNOSTIC DATA: Chest x-ray reveals bibasilar effusions with patchy infiltrates which have not changed. IMPRESSION: A 73-year-old with: 1. Severe chronic obstructive pulmonary disease. 2. Stage IV metastatic colon cancer. 3. Chronic hypoxemic respiratory failure. 4. Esophageal dysfunction with ongoing intermittent aspiration. 5. Status post multiple rib fractures. 6. Poor performance status. 7. Renal failure. DISCUSSION: A 73-year-old with multiple problems outlined above. The patient's kidney function is improving with hydration, but he has gained 16 pounds over the last several days, and now has a hyperchloremic metabolic acidosis associated with chloride replacement. The patient's prognosis is poor. It is not clear that he will ever have rehab potential. RECOMMENDATIONS: 1. Continue oxygen for hypoxemic respiratory failure. 2. Continue to follow for aspiration events, given his severe esophageal dysmotility. 3. Would consider discontinuing IV fluids, given ongoing weight gain and hyperchloremic acidosis. 4. Prognosis is poor. Hospice is recommended. cc: Chetan Costa MD
[2018-12-06] MEDS: OXY IR PO PRN ×4 (00:11→18:58)
[2018-12-06] MEDS: MORPHINE IV PRN ×3 (01:55→22:26)
[2018-12-06] MEDS: DUONEB (A & A) INH SCH ×6 (03:27→23:20)
[2018-12-06] MEDS: VELTASSA PO SCH (05:23)
--- NOTE | 2018-12-06 07:17 | Diag Imaging Result Doc PS360 ---
EXAM: CHEST-PORTABLE 12/06/2018 HISTORY: respiratory failure TECHNIQUE: AP portable at 0537 COMMENT: There is blunting of the left costophrenic angle and platelike opacity in the mid lung field on the right. There is generalized interstitial opacity consistent with pulmonary edema. There has been no significant change in the appearance the chest since 12/05/2018. IMPRESSION: Pulmonary edema and atelectasis stable since previous study. Electronically signed by Zeeshan Croft 12/06/2018 7:15 AM
[2018-12-06] MEDS: MUCOMYST 20% INH SCH ×2 (07:37→19:35)
[2018-12-06 07:57] LABS: BASO# 0.01 X1000 (0.0-0.2); BASO% 0.1 % (0.0-0.8); EOS# 0.14 X1000 (0.0-0.7); EOS% 0.8 % (0.0-10.0); HEMATOCRIT 25.1 % (42.0-52.0); IMM GRAN# 0.07 X1000 (0.0-0.04); IMM GRAN% 0.4 % (0.0-0.5); LYMPH% 3.4 % (20.5-51.1); MCH 33.1 PG (27-31); MCHC 31.9 g/dL (33-37); MCV 103.7 FL (81-99); MONO# 1.29 X1000 (0.11-0.59); MONO% 7.4 % (1.7-9.3); MPV 11.5 FL (7.4-10.4); NEUT# 15.44 X1000 (1.4-6.5); NEUT% 87.9 % (42.2-75.2); PLT 124 X1000 (130-400); RBC 2.42 XMIL (4.7-6.1); RDW 19.1 % (11.5-14.5); WBC 17.55 X1000 (4.8-10.8)
[2018-12-06] MEDS: NS 1,000 ML IV SCH (08:01)
[2018-12-06] MEDS: CARDIZEM CD PO SCH (08:03)
[2018-12-06] MEDS: THERA M PLUS PO SCH (08:03)
[2018-12-06] MEDS: SODIUM BICARBONATE PO SCH ×2 (08:03→22:17)
[2018-12-06] MEDS: MEGACE LIQUID PO SCH (08:03)
[2018-12-06] MEDS: CORDARONE PO SCH (08:03)
[2018-12-06] MEDS: MYCOSTATIN SUSP PO SCH ×4 (08:03→22:16)
[2018-12-06] MEDS: IMDUR PO SCH (08:03)
[2018-12-06] MEDS: MUCINEX PO SCH ×2 (08:03→22:16)
[2018-12-06] MEDS: ELIQUIS PO SCH ×2 (08:03→22:17)
[2018-12-06] MEDS: FOLIC ACID PO SCH (08:03)
[2018-12-06] MEDS: LOPRESSOR PO SCH ×2 (08:03→22:17)
[2018-12-06] MEDS: PROTONIX IV SCH ×2 (08:04→22:16)
[2018-12-06] MEDS: SODIUM CHLORIDE 0.9% INJ SCH ×2 (08:04→22:16)
[2018-12-06 08:14] LABS: CALCIUM 8.4 mg/dL (8.8-10.2); CREATININE 1.5 mg/dL (0.7-1.2); POTASSIUM 4.7 mmol/L (3.5-5.1)
[2018-12-06 08:38] LABS: EOS 1 % (1-10); LYMPHS 4 % (21-51); MONO 6 % (1-9); SEGS 89 % (42-75)
[2018-12-06] MEDS ORDERED: LASIX IV ONE (13:10)
[2018-12-06] MEDS ORDERED: ALBUTEROL NEB INH ONE (13:10)
[2018-12-06 13:36] LABS: ALLEN TEST YES; BE -6.4 mmoll (-3.0-3.0); BLOOD TYPE ARTERIAL; HCO3-(ACT) 19.9 mmoll (20.0-26.0); METHB 0.9 % (0.0-1.5); O2(CT) 12.9 mL/dL (15.0-23.0); O2HB 94.6 % (95.0-99.0); PCO2(98.6) 29 mmHg (35-45); PO2(98.6) 76 mmHg (60-100); SAMPLE BLOOD; SAO2 95.8 % (95.0-100.0); THB 9.6 g/dL (11.5-17.4); pH(98.6) 7.39 (7.35-7.45)
[2018-12-06 13:37] LABS: MODALITY CANNULA
--- NOTE | 2018-12-06 13:39 | PROGRESS NOTE ---
DATE: 12/06/2018 SUBJECTIVE: The patient resting in bed. His dyspneic at rest. Has a daughter present in the room. OBJECTIVE: Vital signs: Temperature 97.6 degrees, pulse 98, respiratory rate is 21, blood pressure is 126/56, oxygen saturation is 100%. HEENT: Atraumatic, normocephalic. Cardiovascular System: S1, S2, tachycardic. Respiratory System: Clear to auscultation. May have some rales/rhonchi. Abdomen: Soft, nontender. No masses felt. Extremities: Has 1+ edema in both lower extremities. Central Nervous System: No obvious focal deficits noted. DIAGNOSTIC STUDIES: WBC 17.5, hematocrit 25.1, platelet count of 124,000. Sodium 139, potassium 4.7, chloride 113, bicarbonate 17, BUN 64, creatinine 1.5. X-ray of his chest shows pulmonary edema and atelectasis. ASSESSMENT AND PLAN: 1. Acute respiratory failure. We will continue patient on supplemental oxygen. Today's x-ray shows evidence of pulmonary edema. We will discontinue intravenous fluids and gave her a dose of Lasix. We will also maintain patient on nebulized bronchodilators. The patient is being followed by the pulmonary team. 2. Atrial fibrillation. Continue rate-controlling agent, antiemetic, as well as anticoagulation. 3. Acute kidney injury superimposed on chronic kidney disease. Continue to follow up on patient's renal function. 4. Metastatic colon cancer. Aware. Oncology following. 5. Esophageal dysmotility. Maintain patient on aspiration precaution. DISPOSITION: The patient is still acutely ill. I would like to optimize his pulmonary status prior to him being discharged. cc: Jose Villegas MD
--- NOTE | 2018-12-06 13:50 | Diag Imaging Result Doc PS360 ---
EXAM: CHEST-PORTABLE 12/06/2018 HISTORY: pulmonary edema TECHNIQUE: AP portable at 1320 COMMENT: There are patchy alveolar opacities bilaterally. This is slightly worse in the right upper lobe than on the previous study of 12/06/2018 at 0537. There is pleural effusion on the left. The right base is slightly better expanded. IMPRESSION: Slightly worsened pulmonary edema versus pneumonia particularly in the right upper lobe. Electronically signed by Zeeshan Croft 12/06/2018 1:47 PM
[2018-12-06] MEDS ORDERED: MERREM 1 GM in NS 50 ML IV ONE (16:41)
[2018-12-06] MEDS ORDERED: MERREM 1 GM in NS 50 ML IV SCH (17:30)
[2018-12-06] MEDS: MERREM 1 GM in NS 50 ML IV SCH (18:56)
[2018-12-06] MEDS: ZYVOX PO SCH (18:57)
--- NOTE | 2018-12-06 20:36 | INFECTIOUS DISEASE PROGRESS NO ---
DATE: 12/06/2018 PRESENT ILLNESS: Mr. Bautista was previously treated for pneumonia with cefepime and Zyvox and was taken off antibiotics. Today his procalcitonin level came back at 0.52, which makes it very likely there is a respiratory infection. Also, in looking at his x-ray, there is a worsening pulmonary edema versus pneumonia, and his white count is up to 17,000. The patient also has an oral candidiasis. MEDICATIONS: He has been off antimicrobials. Today we will start him on broad- spectrum coverage using meropenem 1 g every 12 hours as a renally modified dose and Zyvox 600 mg by mouth every 12 hours. He is also receiving nystatin swish and swallow. PHYSICAL EXAMINATION: Vital Signs: Temperature is 98 degrees, pulse rate 102, respiratory rate 25, blood pressure 124/76, O2 saturation 99% on 2 L nasal cannula. General: This is a chronically ill-appearing, elderly gentleman. He is sitting up in the bed, currently in no acute distress. HEENT: Atraumatic, normocephalic. Oral mucous membranes are pink and dry. Conjunctivae are pale. Cardiovascular: Irregularly irregular. Respiratory: Lung sounds with some mild rales noted bilaterally. Abdomen: Soft and tender on palpation. Bowel sounds are active. Extremities: There is 1+ pretibial edema noted bilaterally. Neurologic: He is awake, alert, and oriented. Able to move around with assistance in the bed. Integumentary: The patient has a Port-A-Cath in place to the right chest wall. That site is without edema, erythema, or drainage. LABORATORY AND X-RAY: Today his white count is 17.55, hemoglobin 8, platelet count 124,000. Blood gas done this afternoon on 2 L nasal cannula shows a pH of 7.39, pCO2 of 29, pO2 of 76, HCO3 of 19.9. Creatinine is 1.5. GFR is 46. Procalcitonin level is 0.52. Chest x- ray today shows slightly worsened pulmonary edema versus pneumonia, particularly in the right upper lobe. ASSESSMENT AND PLAN: Mr. Bautista is being treated for pneumonia with a leukocytosis and an elevated procalcitonin level. We have added meropenem as a renally modified dose and Zyvox for broad-spectrum coverage. He is also on nystatin swish and swallow which we will continue, for oral candidiasis. These plans have been discussed with and recommended by Dr. Lamas. Comorbidities for Mr. Bautista include that he is elderly with severe COPD, stage IV metastatic colon cancer, chronic kidney disease, and generalized deconditioning. Dictated by LIZBET Cartagena for Burke Lamas MD cc: Burke Lamas MD [facility]
--- NOTE | 2018-12-06 20:46 | PULMONOLOGY PROGRESS NOTE ---
DATE: 12/06/2018 OBJECTIVE: Vital Signs: The patient has been afebrile for the last 24 hours. Heart rate 91, respiratory rate 16, blood pressure 126/56, oxygen saturation 99%. HEENT: Pupils are equal and reactive. Oropharynx is clear. Neck: Supple. Chest: Bilateral rhonchi with decreased breath sounds in both lung bases. Cardiac: S1, S2. Abdomen: Soft. Extremities: Without edema. LABORATORIES: Chest x-ray reveals increased pulmonary edema and effusions. White blood count 17.6, hemoglobin 8.0, platelet count 124,000. Arterial blood gas reveals pH 7.39, pCO2 29, pO2 of 76. Sodium 139, potassium 4.7, chloride 113, bicarbonate 17, BUN 65, creatinine 1.5. IMPRESSION: A 73-year-old with: 1. Severe chronic obstructive pulmonary disease. 2. Stage IV metastatic cancer. 3. Esophageal dysfunction with intermittent aspiration. 4. Chronic hypoxemic respiratory failure. 5. Acute renal failure. 6. Status post multiple rib fractures. 7. Poor performance status. DISCUSSION: A 73-year-old with multiple problems as outlined above. The patient's renal numbers improved with hydration, but he has developed increased total body water with increasing effusions. RECOMMENDATIONS: 1. Agree with discontinuing intravenous fluids. 2. Initiate diuretic trial. 3. Antibiotics as outlined by Dr. Burke Lamas and Rolanda Sheffield. 4. Prognosis is poor. Hospice is recommended. cc: Chetan Costa MD
[2018-12-06] MEDS: LASIX IV SCH (22:16)
[2018-12-06] MEDS: DULCOLAX PR SCH ×2 (22:17→22:34)
[2018-12-06] MEDS: ATIVAN IV PRN (22:25)
[2018-12-07] MEDS: LASIX IV SCH (02:58)
[2018-12-07] MEDS: DUONEB (A & A) INH SCH ×6 (03:23→23:29)
[2018-12-07] MEDS: VELTASSA PO SCH (06:18)
[2018-12-07] MEDS: MERREM 1 GM in NS 50 ML IV SCH ×2 (06:18→17:16)
[2018-12-07] MEDS: ZYVOX PO SCH ×2 (06:18→17:16)
[2018-12-07] MEDS: MORPHINE IV PRN ×3 (06:31→23:35)
[2018-12-07] MEDS: ATIVAN IV PRN (06:31)
[2018-12-07 07:40] LABS: BASO# 0.01 X1000 (0.0-0.2); BASO% 0.1 % (0.0-0.8); EOS# 0.15 X1000 (0.0-0.7); EOS% 1.1 % (0.0-10.0); HEMATOCRIT 26.5 % (42.0-52.0); HEMOGLOBIN 8.4 g/dL (14.0-18.0); IMM GRAN# 0.09 X1000 (0.0-0.04); IMM GRAN% 0.7 % (0.0-0.5); LYMPH# 0.58 X1000 (1.2-3.4); LYMPH% 4.3 % (20.5-51.1); MCH 32.6 PG (27-31); MCHC 31.7 g/dL (33-37); MCV 102.7 FL (81-99); MONO# 0.87 X1000 (0.11-0.59); MONO% 6.5 % (1.7-9.3); MPV 11.5 FL (7.4-10.4); NEUT# 11.75 X1000 (1.4-6.5); NEUT% 87.3 % (42.2-75.2); PLT 122 X1000 (130-400); RBC 2.58 XMIL (4.7-6.1); WBC 13.45 X1000 (4.8-10.8)
[2018-12-07] MEDS: MUCOMYST 20% INH SCH ×2 (07:42→19:32)
--- NOTE | 2018-12-07 07:42 | Diag Imaging Result Doc PS360 ---
EXAM: CHEST-PORTABLE INDICATION: respiratory failure TECHNIQUE: One view COMPARISON: 12/06/2018 FINDINGS: The right chest port is in stable position. The lungs are grossly clear. Bilateral patchy consolidation, worst in the right upper lobe is approximately stable. No new consolidation is identified. Cardiac silhouette is stable. IMPRESSION: Stable chest. Electronically signed by Mandeep Lujan 12/07/2018 7:40 AM
[2018-12-07 07:57] LABS: CALCIUM 8.5 mg/dL (8.8-10.2); CREATININE 1.6 mg/dL (0.7-1.2); POTASSIUM 4.7 mmol/L (3.5-5.1)
[2018-12-07 08:10] LABS: ANISOCYTOSIS 2+; LYMPHS 2 % (21-51); MONO 4 % (1-9); SEGS 94 % (42-75)
[2018-12-07] MEDS: CARDIZEM CD PO SCH (10:03)
[2018-12-07] MEDS: THERA M PLUS PO SCH (10:03)
[2018-12-07] MEDS: SODIUM CHLORIDE 0.9% INJ SCH (10:04)
[2018-12-07] MEDS: CORDARONE PO SCH (10:04)
[2018-12-07] MEDS: ELIQUIS PO SCH ×2 (10:04→20:27)
[2018-12-07] MEDS: LOPRESSOR PO SCH ×2 (10:04→20:28)
[2018-12-07] MEDS: FOLIC ACID PO SCH (10:04)
[2018-12-07] MEDS: IMDUR PO SCH (10:04)
[2018-12-07] MEDS: MUCINEX PO SCH ×2 (10:04→20:27)
[2018-12-07] MEDS: OXY IR PO PRN ×3 (10:04→20:27)
[2018-12-07] MEDS: MEGACE LIQUID PO SCH (10:04)
[2018-12-07] MEDS: MYCOSTATIN SUSP PO SCH ×4 (10:05→20:28)
[2018-12-07] MEDS: PROTONIX IV SCH ×2 (10:05→20:27)
[2018-12-07] MEDS: SODIUM BICARBONATE PO SCH ×2 (10:14→20:27)
[2018-12-07] MEDS ORDERED: LASIX IV ONE (15:17)
--- NOTE | 2018-12-07 15:47 | PROGRESS NOTE ---
DATE: 12/07/2018 SUBJECTIVE: The patient resting in bed. OBJECTIVE: Vital signs: Temperature 97.9 degrees, pulse 107, respirations 2-, blood pressure is 106/67, and oxygen saturation is 99%. HEENT: Atraumatic, normocephalic. Cardiovascular: S1, S2. Tachycardic. Lungs: Respiratory system has evidence of rales in both lung sena. Abdomen: Soft, nontender. No masses felt. Extremities: Edema in both lower extremities. Central nervous system: No focal deficits noted. LABORATORY: WBC 13.45, hematocrit 26.5,with a platelet count of 122,000. Sodium is 140, potassium 4.7, chloride 112, bicarb is 19, BUN is 16, and creatinine 1.6. X-ray of chest shows bilateral patchy consolidation worse on the right upper lobe. ASSESSMENT AND PLAN: 1. Acute respiratory failure. Continue patient on supplemental oxygen. Primary lung condition includes pulmonary edema with possibly pneumonia. Maintain patient on diuretics for pulmonary edema, and antibiotic management for possible pneumonia per recommendation of the Infectious Disease team. 2. Atrial fibrillation. Continue rate controlling agent antiarrhythmic as well as anticoagulation. 3. Acute kidney injury superimposed on chronic kidney disease. Follow up on renal function. 4. Metastatic colon cancer. However, Oncology following. 5. Esophageal dysmotility. As mentioned, maintain patient on aspiration precaution. 6. Disposition: We will need to optimize the patient's pulmonary status prior to him being discharged. cc: Jose Villegas MD
--- NOTE | 2018-12-07 18:09 | INFECTIOUS DISEASE PROGRESS NO ---
DATE: 12/07/2018 PRESENT ILLNESS: Mr. Bautista is being treated for a pneumonia with leukocytosis. These are improving. There is also an oral candidiasis. MEDICATIONS: He is receiving Zyvox 600 mg by mouth every 12 hours and meropenem 1 g IV every 12 hours. Antibiotics were started yesterday after a previous 16 day course was stopped. PHYSICAL EXAMINATION: Vital Signs: Temperature is 97.9, pulse rate 107, respiratory rate 20, blood pressure 106/67. O2 saturation is 99% on 2 L nasal cannula. General: This is a chronically ill-appearing, elderly gentleman. He is lying in the bed currently, in no acute distress. HEENT: Atraumatic, normocephalic. Oral mucous membranes are pink and dry. Conjunctivae are pale. Cardiovascular: Irregularly irregular with atrial fibrillation/atrial flutter on the monitor. Respiratory: Lung sounds are clear in the upper lobes, diminished with some mild rales and rhonchi noted in the bases. Abdomen: Soft, flat, nontender. Bowel sounds are active. Neurologic: He is awake, alert, and appropriate. LABORATORY AND X-RAY: Today his white count is 13.45, hemoglobin 8.4, platelet count 122,000. Creatinine is 1.6, GFR 42. Chest x-ray today is stable with bilateral patchy consolidation, worse in the right upper lobe, but no new consolidation. ASSESSMENT AND PLAN: Yesterday, Mr. Bautista was started on broad-spectrum coverage for return of pneumonia, which had improved at one point. His leukocytosis is improving. He continues to say there is not much improvement in his breathing. For now, we will continue his meropenem and oral Zyvox, as well as the nystatin swish and swallow for his oral candidiasis. These plans have been discussed with and recommended by Dr. Lamas. COMORBIDITIES: For Mr. Bautista include that he is elderly with stage IV metastatic colon cancer, severe COPD, chronic kidney disease and generalized deconditioning. Dictated by LIZBET Cartagena for Burke Lamas MD cc: Burke Lamas MD [facility]
[2018-12-07] MEDS: DULCOLAX PR SCH (20:28)
[2018-12-08] MEDS: OXY IR PO PRN ×3 (03:04→19:28)
[2018-12-08] MEDS: DUONEB (A & A) INH SCH ×6 (03:20→23:14)
[2018-12-08] MEDS: MORPHINE IV PRN ×3 (04:01→17:40)
[2018-12-08] MEDS: VELTASSA PO SCH (05:52)
[2018-12-08] MEDS: MERREM 1 GM in NS 50 ML IV SCH ×2 (05:52→17:30)
[2018-12-08] MEDS: ZYVOX PO SCH ×2 (05:52→17:34)
--- NOTE | 2018-12-08 07:37 | Diag Imaging Result Doc PS360 ---
EXAM: CHEST-PORTABLE 12/08/2018 HISTORY: respiratory failure TECHNIQUE: AP portable at 0641 COMMENT: There are alveolar opacities in both upper lobes and the left lower lobe. There is interstitial opacity elsewhere and blunting of the left costophrenic angle is present. These findings were all present on 12/07/2018. The more focal alveolar opacities have increased in their prominence since 12/06/2018. IMPRESSION: Pulmonary edema with superimposed pneumonia and left pleural effusion. Electronically signed by Zeeshan Croft 12/08/2018 7:35 AM
[2018-12-08 08:07] LABS: CALCIUM 8.2 mg/dL (8.8-10.2); CREATININE 1.6 mg/dL (0.7-1.2); POTASSIUM 4.5 mmol/L (3.5-5.1)
[2018-12-08] MEDS: MUCOMYST 20% INH SCH ×2 (08:28→19:37)
[2018-12-08] MEDS: CARDIZEM CD PO SCH (10:02)
[2018-12-08] MEDS: THERA M PLUS PO SCH (10:02)
[2018-12-08] MEDS: CORDARONE PO SCH (10:02)
[2018-12-08] MEDS: ELIQUIS PO SCH ×2 (10:02→19:29)
[2018-12-08] MEDS: IMDUR PO SCH (10:02)
[2018-12-08] MEDS: MUCINEX PO SCH ×2 (10:02→19:29)
[2018-12-08] MEDS: SODIUM BICARBONATE PO SCH ×2 (10:02→19:29)
[2018-12-08] MEDS: MEGACE LIQUID PO SCH (10:03)
[2018-12-08] MEDS: LOPRESSOR PO SCH (10:03)
[2018-12-08] MEDS: PROTONIX IV SCH ×2 (10:03→19:29)
[2018-12-08] MEDS: MYCOSTATIN SUSP PO SCH ×4 (10:03→19:29)
[2018-12-08] MEDS: SODIUM CHLORIDE 0.9% INJ SCH ×2 (10:03→19:29)
[2018-12-08] MEDS: FOLIC ACID PO SCH (10:04)
--- NOTE | 2018-12-08 14:31 | PROGRESS NOTE ---
DATE: 12/08/2018 SUBJECTIVE: This morning Mr. Bautista refers to be feeling generally weak, and he does not think he is doing any better. There is a sister who was at the bedside at the time of the encounter. OBJECTIVE: Vitals: Blood pressure is 122/79, pulse is 99, respiration is 18, temperature is 97.8 degrees. General: On general exam, Mr. Bautista is a 73-year-old male. He is in bed. He looks chronically ill, wasted and undernourished. Has some temporal wasting and thenar and hypothenar wasting. HEENT: Mucous is slightly pale. Anicteric and acyanotic. Neck: Supple. Chest: Air entry is bilaterally reduced. There are diffuse bilateral crackles. Cardiovascular: Regular rate and rhythm. Abdomen: Soft. Extremities: No pedal edema. There is 2+ pedal edema and there is edema on the lateral aspect of the chest and abdominal wall. PLATE CONDITIONER: Patient is awake, alert. He is just remarkably feeble. LABORATORY DATA: None for today, except for chemistry: The creatinine is 1.6, BUN is 77, bicarbonate is 19, chloride is 119. DIAGNOSTIC STUDIES: A chest x-ray this morning shows pulmonary edema with superimposed pneumonia and left pleural effusion. CURRENT MEDICATIONS: Have all been reviewed. He is still on meropenem and Zyvox. The patient is being seen by Infectious Disease, Respiratory and Nephrology. ASSESSMENT: 1. Acute hypoxemic respiratory failure. Patient continues to be on supplemental oxygen. 2. Multifocal pneumonia, suspicious for aspiration. 3. Severe esophageal dysmotility. We think this is the set up for aspiration pneumonia. Aspiration precaution is recommended. 4. Acute on chronic kidney disease. Nephrology is on board. 5. Atrial fibrillation currently rate controlled. 6. History of metastatic colon cancer. Patient follows up with Dr. Grissom. 7. Generalized weakness and deconditioning with poor performance status. Overall patient prognosis looks poor. PLAN: I understand there is a plan for Mr. Bautista to go to rehabilitation. We will be waiting for that arrangement. However, I think his overall prognosis is remarkably poor and, at this point, he would probably be better to be seen by hospice. However, at this point Mr. Bautista is not willing to discuss any hospice. cc: Ifeanyi Buchanan MD
[2018-12-09] MEDS: MORPHINE IV PRN ×4 (01:20→20:01)
[2018-12-09] MEDS: OXY IR PO PRN ×3 (02:02→21:57)
[2018-12-09] MEDS: ATIVAN IV PRN ×2 (02:02→21:57)
[2018-12-09] MEDS: SODIUM BICARBONATE PO SCH ×3 (02:04→20:01)
[2018-12-09] MEDS: MYCOSTATIN SUSP PO SCH ×5 (02:04→20:01)
[2018-12-09] MEDS: PROTONIX IV SCH ×3 (02:04→20:01)
[2018-12-09] MEDS: ELIQUIS PO SCH ×3 (02:05→20:01)
[2018-12-09] MEDS: LOPRESSOR PO SCH ×3 (02:05→20:01)
[2018-12-09] MEDS: DULCOLAX PR SCH ×2 (02:05→20:02)
[2018-12-09] MEDS: MUCINEX PO SCH ×3 (02:05→20:01)
[2018-12-09] MEDS: DUONEB (A & A) INH SCH ×6 (03:24→23:11)
[2018-12-09] MEDS: ZYVOX PO SCH ×2 (05:23→17:59)
[2018-12-09] MEDS: VELTASSA PO SCH (05:23)
[2018-12-09] MEDS: MERREM 1 GM in NS 50 ML IV SCH ×2 (05:23→17:58)
--- NOTE | 2018-12-09 06:51 | Diag Imaging Result Doc PS360 ---
EXAM: CHEST-PORTABLE 12/09/2018 HISTORY: respiratory failure TECHNIQUE: AP portable at 0612 COMMENT: There is patchy opacity bilaterally particularly in the right upper and left lower lobes. There may be slightly less pleural fluid on the left than on 12/08/2018 and the left upper lobe opacity is slightly improved. IMPRESSION: Minimal improvement in pulmonary edema versus pneumonia and left pleural effusion. Electronically signed by Zeeshan Croft 12/09/2018 6:48 AM
[2018-12-09 07:49] LABS: CALCIUM 9.2 mg/dL (8.8-10.2); CREATININE 1.6 mg/dL (0.7-1.2); POTASSIUM 4.8 mmol/L (3.5-5.1)
[2018-12-09] MEDS: MUCOMYST 20% INH SCH ×2 (07:58→19:30)
[2018-12-09] MEDS: FOLIC ACID PO SCH (10:36)
[2018-12-09] MEDS: THERA M PLUS PO SCH (10:37)
[2018-12-09] MEDS: CORDARONE PO SCH (10:37)
[2018-12-09] MEDS: IMDUR PO SCH (10:37)
[2018-12-09] MEDS: MEGACE LIQUID PO SCH (10:37)
[2018-12-09] MEDS: CARDIZEM CD PO SCH (10:37)
[2018-12-09] MEDS ORDERED: LASIX IV ONE (15:00)
--- NOTE | 2018-12-09 15:19 | PROGRESS NOTE ---
DATE: 12/09/2018 SUBJECTIVE: Patient resting in bed. OBJECTIVE: Vital signs: Temperature 98.1 degrees, pulse 108, respiratory rate 16, blood pressure 112/67, oxygen saturation 100%. HEENT: Atraumatic, normocephalic. Cardiovascular: S1, S2, tachycardic. Respiratory System: Occasional rales noted. Abdomen: Soft, nontender. No masses felt. Extremities: Edema present in lower extremities. Central nervous system: No obvious focal deficit noted. DIAGNOSTIC STUDIES: Sodium 143, potassium 4.8, chloride is 111, bicarbonate is 20, BUN is 18, creatinine is 1.6. X-ray of the chest shows minimal improvement in pulmonary edema versus pneumonia and also left pleural effusion. ASSESSMENT AND PLAN: 1. Acute respiratory failure. Continue supplemental oxygen. Primary lung conditions include pulmonary edema as well as pneumonia. Maintain patient on diuretics for pulmonary edema and continue antibiotics as recommended by Infectious Disease for pneumonia. 2. Atrial fibrillation. Continue rate-controlling agent, antiarrhythmic, as well as anticoagulation. 3. Acute kidney injury superimposed on chronic kidney disease. Continue follow-up on renal function. 4. Metastatic colon cancer. Oncology consulted. 5. Esophageal dysmotility. Maintain patient on aspiration precaution. DISPOSITION: The patient is still clinically unstable at this time and not ready for discharge. We will continue to optimize his pulmonary status. He is on antibiotics for pneumonia and also diuretics for pulmonary edema. cc: Jose Villegas MD
[2018-12-10] MEDS: DUONEB (A & A) INH SCH ×6 (03:12→23:07)
[2018-12-10] MEDS: ZYVOX PO SCH ×2 (05:39→18:08)
[2018-12-10] MEDS: MERREM 1 GM in NS 50 ML IV SCH ×2 (05:40→18:07)
[2018-12-10] MEDS: VELTASSA PO SCH (05:40)
[2018-12-10] MEDS: OXY IR PO PRN ×4 (05:40→22:13)
--- NOTE | 2018-12-10 06:35 | Diag Imaging Result Doc PS360 ---
EXAM: CHEST-PORTABLE HISTORY: respiratory failure TECHNIQUE: Portable chest single view COMPARISON: 12/09/2018 FINDINGS: No change in the right jugular portacatheter. Sternal wires are present. The heart is borderline mildly prominent. There are bilateral infiltrates. These may be slightly less dense. There are small pleural effusions. IMPRESSION: Questionable slight interval improvement. Electronically signed by Rudy Agrawal 12/10/2018 6:32 AM
[2018-12-10 07:34] LABS: CALCIUM 8.8 mg/dL (8.8-10.2); CREATININE 1.8 mg/dL (0.7-1.2); POTASSIUM 4.9 mmol/L (3.5-5.1)
[2018-12-10] MEDS: MUCOMYST 20% INH SCH ×2 (07:44→19:21)
[2018-12-10] MEDS: FOLIC ACID PO SCH (09:00)
[2018-12-10] MEDS: PROTONIX IV SCH ×2 (09:00→22:08)
[2018-12-10] MEDS: CARDIZEM CD PO SCH (09:00)
[2018-12-10] MEDS: SODIUM BICARBONATE PO SCH ×2 (09:00→22:08)
[2018-12-10] MEDS: IMDUR PO SCH (09:00)
[2018-12-10] MEDS: LOPRESSOR PO SCH ×2 (09:00→22:07)
[2018-12-10] MEDS: CORDARONE PO SCH (09:00)
[2018-12-10] MEDS: ELIQUIS PO SCH ×2 (09:00→22:09)
[2018-12-10] MEDS: MEGACE LIQUID PO SCH (09:00)
[2018-12-10] MEDS: MYCOSTATIN SUSP PO SCH ×4 (09:00→22:07)
[2018-12-10] MEDS: MORPHINE IV PRN ×3 (09:02→20:01)
[2018-12-10] MEDS: THERA M PLUS PO SCH (09:02)
[2018-12-10] MEDS: MUCINEX PO SCH ×2 (09:08→22:07)
--- NOTE | 2018-12-10 17:06 | PROGRESS NOTE ---
DATE: 12/10/2018 SUBJECTIVE: Patient is resting on bed. Seems to have difficulty with breathing. OBJECTIVE: Vital signs: Temperature 98.6 degrees, pulse 99, respiratory rate is 21, blood pressure is 96/65, oxygen saturation is 100%. HEENT: Patient is atraumatic, normocephalic. Cardiovascular System: S1, S2. Respiratory system: Has rhonchi in the lung sena. Abdomen: Soft, nontender. No masses felt. Extremities: Have edema in the lower extremities. Central nervous system: No obvious focal deficit noted. LABORATORY DATA: Sodium is 142, potassium 4.9, chloride is 111, bicarb 20, BUN is 88, creatinine is 1.8. X-ray of the chest shows questionable interval improvement. ASSESSMENT AND PLAN: 1. Acute respiratory failure. Continue supplemental oxygen. Continue to address primary lung condition, specifically pulmonary edema as well as a pneumonia. 2. Atrial fibrillation. Continue rate controlling agent, antiarrhythmic, as well as anticoagulation. 3. Acute kidney injury superimposed on chronic kidney disease. Continue to follow up on renal function. Avoid nephrotoxic agent and medications may have to be adjusted for renal function if needed. 4. Metastatic colon cancer. Oncology consulted. 5. Esophageal dysmotility. The patient will need to be on aspiration precaution. 6. Disposition. The patient remains clinically unstable at this time. We will continue to try and optimize his pulmonary status. Continue antibiotics for pneumonia and diuretics for pulmonary edema. Prognosis guarded. cc: Jose Villegas MD
--- NOTE | 2018-12-10 19:15 | INFECTIOUS DISEASE PROGRESS NO ---
DATE: 12/10/2018 PRESENT ILLNESS: Mr. Bautista is being treated for pneumonia which, on chest x- ray today, has shown questionable slight improvement. There is also an oral candidiasis. MEDICATIONS: He has been receiving Zyvox 600 mg by mouth every 12 hours and Meropenem 1 g IV every 12 hours as a renally modified dose. Today is day 4 of these medications. He is also receiving nystatin swish and swallow. PHYSICAL EXAMINATION: Vital Signs: Temperature is 98.6 degrees, pulse rate 98, respiratory rate 31, blood pressure 109/58, oxygen saturation 100% on 2 L nasal cannula. General: This is a chronically ill-appearing, elderly gentleman. He is sitting up in the bed, currently with mild dyspnea and tachypnea. HEENT: Atraumatic, normocephalic. Oral mucous membranes are pink and moist. He states his mouth is feeling better since the nystatin swish and swallow. Cardiovascular: Heart rate is irregular. Atrial fibrillation/atrial flutter on the monitor with rapid ventricular rate at times. Abdomen: Soft, flat, and tender to palpation. Bowel sounds are active. Integumentary: There is a Port-A-Cath in place to the right chest. That site is without edema, erythema, or drainage. Extremities: Show 2+ pretibial edema bilaterally. Neurologic: He is awake, alert, and appropriate, following commands without difficulty. He is extremely weak in the bed. LABORATORY AND X-RAY: No CBC today. Creatinine is 1.8, GFR 37. Chest x-ray today shows questionable slight interval improvement with bilateral infiltrates that may be slightly less dense. ASSESSMENT AND PLAN: Mr. Bautista has been put back on broad-spectrum coverage for return of his pneumonia, which seemed to have resolved at one point. There is no CBC today, so I have put in one to be drawn in the morning to evaluate his leukocytosis. Once again, he tells me that he does not feel much better today; however, there is a small improvement in his chest x-ray. He does, however, feel that his mouth is doing better. For now, we will continue the meropenem, Zyvox, and nystatin swish and swallow as ordered. These plans have been discussed with and recommended by Dr. Lamas. COMORBIDITIES: Include that he is elderly with stage IV metastatic colon cancer, severe chronic obstructive pulmonary disease, chronic kidney disease, and generalized deconditioning. Dictated by LIZBET Cartagena for Burke Lamas MD cc: Burke Lamas MD [facility]
[2018-12-10] MEDS: DULCOLAX PR SCH (22:07)
[2018-12-10] MEDS: SODIUM CHLORIDE 0.9% INJ SCH (22:08)
[2018-12-11] MEDS: DUONEB (A & A) INH SCH ×6 (03:04→23:50)
[2018-12-11] MEDS: OXY IR PO PRN ×3 (03:48→15:25)
[2018-12-11] MEDS: MORPHINE IV PRN ×4 (03:49→21:41)
[2018-12-11] MEDS: MERREM 1 GM in NS 50 ML IV SCH ×2 (06:05→17:05)
[2018-12-11] MEDS: VELTASSA PO SCH (06:10)
[2018-12-11] MEDS: ZYVOX PO SCH ×2 (06:10→17:05)
[2018-12-11] MEDS ORDERED: MORPHINE IV ONE (06:58)
[2018-12-11] MEDS: MUCOMYST 20% INH SCH (07:50)
[2018-12-11 08:20] LABS: CALCIUM 8.6 mg/dL (8.8-10.2); CREATININE 1.7 mg/dL (0.7-1.2); POTASSIUM 4.4 mmol/L (3.5-5.1)
[2018-12-11] MEDS: FOLIC ACID PO SCH (09:09)
[2018-12-11] MEDS: PROTONIX IV SCH ×2 (09:09→21:45)
[2018-12-11] MEDS: SODIUM BICARBONATE PO SCH ×2 (09:09→21:45)
[2018-12-11] MEDS: MYCOSTATIN SUSP PO SCH ×4 (09:09→21:45)
[2018-12-11] MEDS: CORDARONE PO SCH (09:09)
[2018-12-11] MEDS: IMDUR PO SCH (09:09)
[2018-12-11] MEDS: MUCINEX PO SCH ×2 (09:09→21:45)
[2018-12-11] MEDS: CARDIZEM CD PO SCH (09:09)
[2018-12-11] MEDS: THERA M PLUS PO SCH (09:09)
[2018-12-11] MEDS: ELIQUIS PO SCH ×2 (09:09→21:45)
[2018-12-11] MEDS: LOPRESSOR PO SCH ×2 (09:09→21:45)
[2018-12-11] MEDS: MEGACE LIQUID PO SCH (09:09)
[2018-12-11 09:51] LABS: BASO# 0.01 X1000 (0.0-0.2); BASO% 0.1 % (0.0-0.8); EOS# 0.17 X1000 (0.0-0.7); EOS% 1.3 % (0.0-10.0); HEMATOCRIT 27.4 % (42.0-52.0); HEMOGLOBIN 8.6 g/dL (14.0-18.0); IMM GRAN# 0.16 X1000 (0.0-0.04); IMM GRAN% 1.2 % (0.0-0.5); LYMPH# 0.68 X1000 (1.2-3.4); LYMPH% 5.1 % (20.5-51.1); MCH 32.3 PG (27-31); MCHC 31.4 g/dL (33-37); MONO# 0.84 X1000 (0.11-0.59); MONO% 6.3 % (1.7-9.3); MPV 11.1 FL (7.4-10.4); NEUT# 11.39 X1000 (1.4-6.5); RBC 2.66 XMIL (4.7-6.1); RDW 19.8 % (11.5-14.5); WBC 13.25 X1000 (4.8-10.8)
[2018-12-11 10:14] LABS: LYMPHS 6 % (21-51); MONO 5 % (1-9); SEGS 89 % (42-75)
[2018-12-11 10:16] LABS: PLT 197 X1000 (130-400)
[2018-12-11 10:17] LABS: ANISOCYTOSIS 1+; MICROCYTOSIS 1+
--- NOTE | 2018-12-11 10:27 | Diag Imaging Result Doc PS360 ---
EXAM: CHEST-PORTABLE HISTORY: respiratory failure TECHNIQUE: Chest single view COMPARISON: 12/10/2018 FINDINGS: The patient is rotated to the right current exam. The lungs are well expanded although there are small pleural effusions with basilar atelectasis. There are bilateral infiltrates. Considering the differences in technique these are quite similar to the prior exam. No change in the right sided portacatheter. Sternal wires are present mild cardiomegaly. IMPRESSION: No significant interval change. Electronically signed by Rudy Agrawal 12/11/2018 10:25 AM
--- NOTE | 2018-12-11 16:06 | PROGRESS NOTE ---
DATE: 12/11/2018 SUBJECTIVE: Patient is resting in bed. He is still having shortness of breath/difficulty breathing. He does have metastatic colon cancer. Dr. Grissom is following this patient as an outpatient. Hematology/Oncology Department consult has been placed. As per the patient, he used to be using a walker before and can make at least a few steps, but he has not been able to do it right now. He does not want to go to a rehab center. He prefers to go home with his family. He does have a grandson and nephew that are taking care of him. He is willing to do physical therapy at home as well. I have requested physical therapy and occupational therapy evaluation. OBJECTIVE: Vital Signs: Temperature 97.5 degrees, pulse 105, respiratory rate 22, blood pressure 102/53, oxygen saturation 100% on oxygen. HEENT: Head normocephalic, no trauma. PERRLA. Neck: Supple. No JVD. Central trachea. Chest: Decreased breath sounds globally with coarse breath sounds, some rhonchi bilaterally as well. Abdomen: Soft. Extremities: With no edema. Neurological examination: Alert and oriented x3. No focal deficits. LABORATORY: WBC 13.2, hemoglobin 8.6, hematocrit 27.4, platelets 197. Sodium 139, potassium 4.4, chloride 107, bicarbonate 19. BUN 88, creatinine 1.7, glucose 133, calcium 8.6. ASSESSMENT AND PLAN: 1. Acute on chronic hypoxemic respiratory failure in a patient with esophageal dysfunction with intermittent aspiration, pneumonia. His white blood count is still about the same compared with the previous white blood count done on 12/07/2018. We will continue with antibiotics per Infectious Disease Department, breathing treatment, and oxygen supplementation as well. 2. Atrial fibrillation. Continue with same management. Stable, anticoagulation. 3. Acute on chronic kidney disease. It looks like this is his baseline now, improving. 4. Metastatic colon cancer, aware. Oncology consulted. 5. Esophageal dysmotility as per #1. 6. Poor performance status. This patient does not want to go to a rehab center; he wants to go home with the family. He lives with a nephew and a grandson and, as per the patient, they can take care of him. He wants to go home with physical therapy, but he does not want to go to rehabilitation like I mentioned before. 7. Code status, this patient is full code. cc: Edwin Gong MD
--- NOTE | 2018-12-11 16:39 | INFECTIOUS DISEASE PROGRESS NO ---
DATE: 12/11/2018 PRESENT ILLNESS: Mr. Bautista has pneumonia and an oral candidiasis. MEDICATIONS: Today is day 5 of Zyvox 600 mg by mouth every 12 hours and meropenem 1 g IV every 12 hours as a renally modified dose. He is also receiving nystatin swish and swallow. PHYSICAL EXAMINATION: Vital Signs: Temperature is 97.5 degrees, pulse rate 105, respiratory rate 22, blood pressure 102/53, O2 saturation is 100% on 2 L nasal cannula. General: This is a chronically ill-appearing, elderly gentleman, lying in bed, currently in no acute distress. HEENT: Oral mucous membranes are pink and moist. Conjunctivae are pale. Cardiovascular: Irregularly irregular with atrial fibrillation, atrial flutter on the monitor. Respiratory: Lung sounds have scattered rales bilaterally. Diminished in the bases. Abdomen: Soft, flat, and tender on palpation. Bowel sounds are active. Extremities: He has 2+ pretibial edema noted bilaterally. Integumentary: There is a Port-A-Cath in place to the right chest without any edema, erythema, or drainage to the site. Integumentary: Skin is warm and dry. Neurologic: He is awake alert, oriented, very weak, and deconditioned. LABORATORY AND X-RAY: Today his white count is 13.25, hemoglobin 8.6, platelet count 197,000. Creatinine is 1.7. GFR 39. Chest x-ray today shows bilateral infiltrates with no significant change. ASSESSMENT AND PLAN: Mr. Bautista is being treated for bilateral pneumonia using broad-spectrum coverage with Zyvox and meropenem. He states he is feeling about the same today. Today is day 5 of his antibiotic therapy, which we will continue at this time. He is also receiving nystatin swish and swallow, which we will continue. These plans have been discussed with and recommended by Dr. Lamas. COMORBIDITIES: Include that he is elderly with severe COPD, stage IV metastatic colon cancer, chronic kidney disease, and generalized deconditioning. Dictated by LIZBET Cartagena for Burke Lamas MD cc: Burke Lamas MD
--- NOTE | 2018-12-11 17:31 | PULMONOLOGY PROGRESS NOTE ---
DATE: 12/11/2018 SUBJECTIVE: Patient was asleep, lying in bed upon my arrival. He was arousable and conversant. He has some left hip pain but no other complaints. OBJECTIVE: HEENT: Pupils are equal and reactive. Oropharynx is clear. Neck: Supple. Chest: Reveals occasional crackles bilaterally. Cardiac: S1, S2. Abdomen: Soft . Extremities: Reveal generalized decrease in muscle mass and weakness. LABORATORIES: Chest x-ray reveals small effusions with bilateral infiltrates. No significant change compared to 12/10/2018. White blood count 13.25, hemoglobin 8.6, platelet count 197,000. Sodium 139, potassium 4.4, chloride 107, bicarbonate 19, BUN 88, creatinine 0.17. IMPRESSIONS: This is a 73-year-old with: 1. End-stage/severe chronic obstructive pulmonary disease. 2. Stage IV metastatic colon cancer. 3. Severe esophageal dysfunction with intermittent aspiration. 4. Chronic hypoxemic respiratory failure. 5. Acute on chronic renal failure. He appears to have returned to his baseline. 6. Status post multiple rib fractures. 7. Poor performance status. His palliative performance scale puts him at approximately 30%. DISCUSSION: This is a 73-year-old with problems outlined above. The patient has been in the hospital for 27 days and essentially remains bed-bound. He is unlikely to achieve a status where he can resume chemotherapy. RECOMMENDATIONS: 1. Antibiotics per Infectious Disease. Consider transitioning patient to an oral course of antibiotics if possible. 2. Anticipate discharge home as patient is refusing a rehab stay. 3. The patient is requesting physical therapy. I suspect that he will fail physical therapy. Consider recommending hospice when patient fails physical therapy. 4. Prognosis is poor. Comfort measures long-term are recommended. cc: Cheatn Costa MD
[2018-12-11] MEDS: SODIUM CHLORIDE 0.9% INJ SCH (21:45)
[2018-12-11] MEDS: DULCOLAX PR SCH ×2 (21:46→22:33)
[2018-12-12] MEDS: DUONEB (A & A) INH SCH ×6 (03:30→23:20)
[2018-12-12] MEDS: MORPHINE IV PRN ×6 (03:43→23:20)
[2018-12-12] MEDS: ZYVOX PO SCH (05:58)
[2018-12-12] MEDS: OXY IR PO PRN ×2 (05:58→10:59)
[2018-12-12] MEDS: MERREM 1 GM in NS 50 ML IV SCH (05:59)
[2018-12-12 07:30] LABS: BASO# 0.02 X1000 (0.0-0.2); BASO% 0.2 % (0.0-0.8); EOS# 0.23 X1000 (0.0-0.7); EOS% 1.9 % (0.0-10.0); HEMATOCRIT 27.7 % (42.0-52.0); HEMOGLOBIN 8.7 g/dL (14.0-18.0); IMM GRAN# 0.09 X1000 (0.0-0.04); IMM GRAN% 0.7 % (0.0-0.5); LYMPH# 0.74 X1000 (1.2-3.4); MCHC 31.4 g/dL (33-37); MCV 101.8 FL (81-99); MONO% 6.4 % (1.7-9.3); NEUT# 10.53 X1000 (1.4-6.5); NEUT% 84.8 % (42.2-75.2); PLT 193 X1000 (130-400); RBC 2.72 XMIL (4.7-6.1); RDW 19.4 % (11.5-14.5); WBC 12.41 X1000 (4.8-10.8)
[2018-12-12 08:01] LABS: CALCIUM 8.3 mg/dL (8.8-10.2); CREATININE 1.6 mg/dL (0.7-1.2); POTASSIUM 4.5 mmol/L (3.5-5.1)
[2018-12-12] MEDS: VELTASSA PO SCH (08:18)
[2018-12-12] MEDS: THERA M PLUS PO SCH (08:19)
[2018-12-12] MEDS: SODIUM BICARBONATE PO SCH ×2 (08:19→21:29)
[2018-12-12] MEDS: CORDARONE PO SCH (08:19)
[2018-12-12] MEDS: IMDUR PO SCH (08:19)
[2018-12-12] MEDS: LOPRESSOR PO SCH ×2 (08:19→21:29)
[2018-12-12] MEDS: CARDIZEM CD PO SCH (08:19)
[2018-12-12] MEDS: ELIQUIS PO SCH ×2 (08:19→21:29)
[2018-12-12] MEDS: FOLIC ACID PO SCH (08:19)
[2018-12-12] MEDS: PROTONIX IV SCH ×2 (08:19→21:32)
[2018-12-12] MEDS: MEGACE LIQUID PO SCH (08:20)
[2018-12-12] MEDS: MYCOSTATIN SUSP PO SCH ×4 (08:20→21:30)
[2018-12-12] MEDS: MUCINEX PO SCH ×2 (08:21→21:29)
--- NOTE | 2018-12-12 12:30 | PROGRESS NOTE ---
DATE: 12/12/2018 SUBJECTIVE: Patient is lying in bed. He is complaining still of back pain and left thoracic pain. I had a conversation with Dr. Grissom, and we just readjusted his pain medication. He will receive now morphine IV 5 mg q.2 hours and morphine ER 30 mg p.o. q.12 hours. I had a large conversation with the patient and the sister which is at the bedside. Discussed the possibility of home with hospice. As per the sister, nobody can take care of this patient at home. He lives with the grandson, but she does not believe that he can take care of him. This patient wants to talk to her daughter, which is a nurse about his resuscitation status and further treatment. OBJECTIVE: Vital Signs: Temperature 98 degrees, pulse 98, respiratory rate 16, blood pressure 111/61, and oxygen saturation 99 on 2 L of nasal cannula. HEENT: Head normocephalic. No trauma. PERRLA. Neck: Supple. No JVD. No masses. Central trachea. Chest: Decreased breath sounds globally with coarse breath sounds and rhonchi at the bases. Abdomen: Soft. Extremities: No edema. No clubbing. No cyanosis. Neurological: The patient is alert and oriented x3. No focal deficits but generalized weakness. LABORATORY: WBC 12.4, hemoglobin 8.7, hematocrit 27.7, and platelets 193,000. Sodium 141, potassium 4.5, chloride 110, bicarbonate 20, BUN 89, creatinine 1.6, glucose 115, and calcium 8.3. ASSESSMENT AND PLAN: 1. Acute on chronic hypoxemic respiratory failure in a patient with esophageal dysfunction with intermittent aspiration pneumonia and metastatic colon cancer. His white blood cell count is still about the same, we will continue with the same treatment and antibiotics per Infectious Disease Department. Oxygen supplementation as well. 2. Atrial fibrillation. Continue with same management. 3. Acute on chronic kidney disease. This is his baseline. 4. Metastatic colon cancer. Aware. Oncology has been consulted. We have readjusted his pain medication. He will receive morphine IV 5 mg q.2 hours and morphine ER p.o. 30 mg q.12 hours. Case has been discussed with Dr. Grissom by phone. The patient agreed with the treatment. 5. Esophageal dysmotility as per #1. 6. Poor performance status. This patient is still full code and still wants to go to a rehab center. I do not think this patient has the strength to be going to a rehab center, but if he wants to go we will do it. I discussed the case with the sister and the patient at the bedside. He wants to discuss the case with the daughter which is a nurse to think about his resuscitation status, and think about hospice versus rehab. He will talk with the daughter today in the afternoon. 7. Code status. This patient is still a full code. cc: Edwin Gong MD MTDD
[2018-12-12] MEDS ORDERED: MS CONTIN PO SCH (13:00)
[2018-12-12] MEDS: MS CONTIN PO SCH ×2 (14:07→21:30)
--- NOTE | 2018-12-12 19:21 | INFECTIOUS DISEASE PROGRESS NO ---
DATE: 12/12/2018 PRESENT ILLNESS: The patient has bilateral pneumonia and oral candidiasis. Unfortunately, he has very severe COPD and stage IV metastatic colon cancer. MEDICATIONS: The patient is on day 6 of Zyvox and meropenem. OBJECTIVE: Vital signs: Temperature is 98.7 degrees, pulse 106, respirations 16, blood pressure 127/67. Generally this is a chronically ill and malnourished-appearing elderly male. He is dyspneic even at rest. Head, eyes, ears, nose and throat: He can hear my spoken words and see near objects. He does not have any white patches on his tongue. Cardiovascular: Heart rate is irregular. Abdomen is soft and not tender. Neurologic: The patient is awake. He can move his extremities but he is very weak. Thorax: The patient has a Port-A-Cath present. The site is not erythematous or purulent. DIAGNOSTIC DATA: Chest x-ray shows bilateral infiltrates. LABORATORY DATA: Creatinine is 1.6. GFR is 42. CBC shows a white count of 12,410, hemoglobin 8.7, and platelet count 193,000. ASSESSMENT AND PLAN: 1. I discussed with Mr. Bautista about hospice care, and he said it was very difficult for him to make that decision, but that he was meeting tonight with his family to talk about end-of-life measures. I agree with Dr. Costa to change the patient to oral antibiotics. I am going to discontinue meropenem and Zyvox and start the patient on Augmentin and Cipro. 2. The patient's comorbidities: He is elderly; he has severe chronic obstructive pulmonary disease; he has stage IV metastatic colon cancer; he has chronic kidney disease and generalized deconditioning. cc: Burke Lamas MD
[2018-12-12] MEDS ORDERED: CIPRO PO SCH (21:00)
[2018-12-12] MEDS: AUGMENTIN PO SCH (21:29)
[2018-12-12] MEDS: DULCOLAX PR SCH ×2 (21:35→21:51)
[2018-12-13] MEDS: DUONEB (A & A) INH SCH ×6 (03:10→23:35)
[2018-12-13] MEDS: MORPHINE IV PRN ×5 (05:42→19:41)
[2018-12-13] MEDS: VELTASSA PO SCH (06:24)
[2018-12-13 07:57] LABS: BASO# 0.02 X1000 (0.0-0.2); BASO% 0.2 % (0.0-0.8); EOS# 0.36 X1000 (0.0-0.7); EOS% 3.3 % (0.0-10.0); HEMATOCRIT 26.8 % (42.0-52.0); HEMOGLOBIN 8.4 g/dL (14.0-18.0); IMM GRAN# 0.08 X1000 (0.0-0.04); IMM GRAN% 0.7 % (0.0-0.5); LYMPH# 0.68 X1000 (1.2-3.4); LYMPH% 6.2 % (20.5-51.1); MCH 32.2 PG (27-31); MCHC 31.3 g/dL (33-37); MCV 102.7 FL (81-99); MONO# 0.66 X1000 (0.11-0.59); MPV 10.9 FL (7.4-10.4); NEUT# 9.15 X1000 (1.4-6.5); NEUT% 83.6 % (42.2-75.2); PLT 193 X1000 (130-400); RBC 2.61 XMIL (4.7-6.1); RDW 19.2 % (11.5-14.5); WBC 10.95 X1000 (4.8-10.8)
[2018-12-13 08:12] LABS: CALCIUM 8.2 mg/dL (8.8-10.2); CREATININE 1.3 mg/dL (0.7-1.2); POTASSIUM 4.3 mmol/L (3.5-5.1)
[2018-12-13] MEDS: THERA M PLUS PO SCH (08:26)
[2018-12-13] MEDS: CARDIZEM CD PO SCH (08:26)
[2018-12-13] MEDS: MEGACE LIQUID PO SCH (08:26)
[2018-12-13] MEDS: AUGMENTIN PO SCH ×2 (08:26→21:29)
[2018-12-13] MEDS: MUCINEX PO SCH ×2 (08:26→21:29)
[2018-12-13] MEDS: MS CONTIN PO SCH ×2 (08:26→21:30)
[2018-12-13] MEDS: ELIQUIS PO SCH ×2 (08:26→21:29)
[2018-12-13] MEDS: CORDARONE PO SCH (08:26)
[2018-12-13] MEDS: MYCOSTATIN SUSP PO SCH ×4 (08:27→21:29)
[2018-12-13] MEDS: SODIUM BICARBONATE PO SCH ×2 (08:27→21:29)
[2018-12-13] MEDS: FOLIC ACID PO SCH (08:27)
[2018-12-13] MEDS: LOPRESSOR PO SCH ×2 (08:27→21:29)
[2018-12-13] MEDS: SODIUM CHLORIDE 0.9% INJ SCH ×2 (08:27→21:29)
[2018-12-13] MEDS: PROTONIX IV SCH ×2 (08:27→21:29)
[2018-12-13] MEDS: IMDUR PO SCH (08:27)
--- NOTE | 2018-12-13 13:59 | PROGRESS NOTE ---
DATE: 12/13/2018 SUBJECTIVE: This patient is lying in bed. He looks better today because the pain is better as well. We will continue with the same treatment today. I discussed with him the options, including the comfort measures, hospice, going home with physical therapy, and rehabilitation center. He asked me to discuss the case with the daughter, Mrs. Archer at [phone]. I called her and left a message. My plan is to discharge this patient tomorrow to either rehabilitation which we already have a bed or home with home health at home. He still wants to be full code, and he refused hospice. OBJECTIVE: Vital Signs: Temperature 97.5 degrees, pulse 92, respiratory rate 18, blood pressure 128/65, oxygen saturation 97% on 2 L of nasal cannula. HEENT: Head normocephalic, no trauma. PERRLA. Neck: Supple. No JVD. No masses. Central trachea. Chest: Decreased breath sounds globally with coarse breath sounds and rhonchi mostly at the bases. Abdomen: Soft. Extremities: No edema, no clubbing, no cyanosis. Neurological: This patient is alert and oriented x3. No focal deficit, but he does have generalized weakness. LABORATORY: WBC 10.9, hemoglobin 8.4, hematocrit 26.8, platelets 193,000. Sodium 138, potassium 4.3, chloride 108, bicarbonate 21, BUN 83, creatinine 1.3, glucose 99, calcium 8.2. ASSESSMENT AND PLAN: 1. Acute on chronic hypoxemic respiratory failure in a patient with esophageal dysfunction with intermittent aspiration pneumonia and metastatic colon cancer. White blood cell count trending down. Continue with same management antibiotics per Infectious Disease Department. Oxygen supplementation as well. My plan is to discharge this patient tomorrow either home or rehabilitation. 2. Atrial fibrillation. Continue with same treatment. 3. Acute on chronic kidney disease. This is his baseline. 4. Metastatic colon cancer. Aware. Oncology on board. We have been taking care of his pain medication. 5. Esophageal dysmotility. Per #1. 6. Poor performance status. This patient is still full code. Yesterday, he wanted to go to rehabilitation, and today he thinking about going home. He asked me to call his daughter Suzi, but I left a message. I will wait for her call. Likely I will discharge this patient home tomorrow. 7. Code status. This patient is full code. cc: Edwin Gong MD
[2018-12-13] MEDS: DULCOLAX PR SCH (21:29)
[2018-12-14] MEDS: DUONEB (A & A) INH SCH ×4 (03:05→15:08)
[2018-12-14] MEDS: MORPHINE IV PRN ×4 (06:11→14:51)
[2018-12-14 07:40] LABS: BASO# 0.01 X1000 (0.0-0.2); BASO% 0.1 % (0.0-0.8); EOS# 0.34 X1000 (0.0-0.7); EOS% 3.8 % (0.0-10.0); HEMATOCRIT 26.6 % (42.0-52.0); HEMOGLOBIN 8.4 g/dL (14.0-18.0); IMM GRAN# 0.09 X1000 (0.0-0.04); LYMPH# 0.71 X1000 (1.2-3.4); LYMPH% 7.9 % (20.5-51.1); MCH 32.4 PG (27-31); MCHC 31.6 g/dL (33-37); MCV 102.7 FL (81-99); MONO# 0.72 X1000 (0.11-0.59); MPV 10.5 FL (7.4-10.4); NEUT# 7.15 X1000 (1.4-6.5); NEUT% 79.2 % (42.2-75.2); PLT 193 X1000 (130-400); RBC 2.59 XMIL (4.7-6.1); WBC 9.02 X1000 (4.8-10.8)
[2018-12-14 08:04] LABS: CREATININE 1.3 mg/dL (0.7-1.2); POTASSIUM 4.2 mmol/L (3.5-5.1)
[2018-12-14] MEDS: SODIUM CHLORIDE 0.9% INJ SCH (09:37)
[2018-12-14] MEDS: PROTONIX IV SCH (09:37)
[2018-12-14] MEDS: SODIUM BICARBONATE PO SCH (09:38)
[2018-12-14] MEDS: IMDUR PO SCH (09:38)
[2018-12-14] MEDS: THERA M PLUS PO SCH (09:38)
[2018-12-14] MEDS: MUCINEX PO SCH (09:38)
[2018-12-14] MEDS: MYCOSTATIN SUSP PO SCH ×2 (09:38→14:52)
[2018-12-14] MEDS: ELIQUIS PO SCH (09:38)
[2018-12-14] MEDS: MEGACE LIQUID PO SCH (09:38)
[2018-12-14] MEDS: CORDARONE PO SCH (09:38)
[2018-12-14] MEDS: FOLIC ACID PO SCH (09:38)
[2018-12-14] MEDS: CARDIZEM CD PO SCH (09:38)
[2018-12-14] MEDS: LOPRESSOR PO SCH (09:38)
[2018-12-14] MEDS: ATIVAN IV PRN ×2 (09:40→14:51)
[2018-12-14] MEDS: MS CONTIN PO SCH (09:40)
[2018-12-14] MEDS: AUGMENTIN PO SCH (09:41)
--- NOTE | 2018-12-14 12:00 | PROGRESS NOTE ---
DATE: 12/14/2018 SUBJECTIVE: The patient is lying comfortably in bed. He is feeling better. I had a discussion with the patient and the grandson who is at the bedside, at they have decided to go home with hospice. mud worker has been notified. Once everything is set up, I will send him home. His resuscitation status now is DNR level 1. OBJECTIVE: Vital Signs: Temperature 97.5 degrees, pulse 99, respiratory rate 18, blood pressure 118/64, oxygen saturation 100% on 3 L of nasal cannula. HEENT: Head normocephalic. No trauma. PERRLA. Neck: Supple. No JVD. No masses. Central trachea. Chest: Decreased breath sounds globally with coarse breath sounds and rhonchi mostly at the bases. Abdomen: Soft. Extremities: No edema, no clubbing, no cyanosis. Neurological: The patient is alert and oriented x3. No focal deficits. He does have generalized weakness. He is not able to walk. LABORATORY DATA: WBC 9, hemoglobin 8.4, hematocrit 26.6, platelets 193,000. Sodium 141, potassium 4.2, chloride 109, bicarbonate 21, BUN 83, creatinine 1.3, glucose 138, calcium 8. ASSESSMENT AND PLAN: 1. Acute on chronic hypoxemic respiratory failure in a patient with esophageal dysfunction with intermittent aspiration pneumonia and metastatic colon cancer. White blood cell count normalized. Continue with antibiotics per Infectious Disease Department. The plan is to discharge this patient home with hospice, once hospice is set up, he will be discharged. 2. Atrial fibrillation. Continue with the same treatment. 3. Acute on chronic kidney disease. Resolved this is his baseline. 4. Metastatic colon cancer, aware. Oncology on board. Continue with pain management. 5. Esophageal dysmotility, per #1. 6. Poor performance status. This patient has been placed DNR level 1, the plan is to send this patient home with hospice. CODE STATUS: This patient is DNR level 1. cc: Edwin Gong MD
[2018-12-14 16:22] VITALS: BP 142/95
--- NOTE | 2018-12-14 21:04 | DISCHARGE SUMMARY ---
ADMISSION DATE: 11/14/2018 DISCHARGE DATE: 12/14/2018 ADMISSION DIAGNOSES: 1. Pneumothorax, left sided. 2. Atrial fibrillation/rapid ventricular response. 3. Elevated digoxin level. 4. Acute kidney injury on chronic kidney disease. 5. Hypertension. 6. Chronic anticoagulation. 7. Chronic obstructive pulmonary disease. 8. Stage IV colon cancer. 9. Elevated troponin. DISCHARGE DIAGNOSES: 1. Pneumothorax, left sided. 2. Atrial fibrillation/rapid ventricular response. 3. Elevated digoxin level. 4. Acute kidney injury on chronic kidney disease. 5. Hypertension. 6. Chronic anticoagulation. 7. Chronic obstructive pulmonary disease. 8. Stage IV colon cancer. 9. Elevated troponin. 10.Acute hypoxemic respiratory failure. 11.Bilateral aspiration pneumonia. 12.Esophageal dysmotility. 13.Oral candidiasis. CONSULTATIONS: Dr. Burke Lamas of Infectious Disease, Dr. Chetan Costa with Pulmonary/Critical Care, Dr. Narciso Chicas with General Surgery, Dr. Felix Colvin with Nephrology, Dr. Hernan Grissom with Hematology/Oncology. DIAGNOSTIC PROCEDURES AND FINDINGS: Chest x-ray 11/14/2018: Left-sided pneumothorax, pulmonary edema throughout the lungs. Renal ultrasound 11/16/2018: Increased renal cortical echotexture which could be a nonspecific indicator of medical renal disease. Barium swallow x-ray 11/21/2018: Severe esophageal dysmotility. Final chest x-ray 12/11/2018: Lungs are well expanded. Small pleural effusions with basilar atelectasis, bilateral infiltrates. Sternal wires with mild cardiomegaly. EKG 11/14/2018: Atrial fibrillation/rapid ventricular response, nonspecific ST wave changes diffusely. Echocardiogram 11/16/2018: There is [id number] shunting across the atrial septum consistent with possible PFO. Mild TR. Severe left ventricular hypertrophy, EF greater than 70%. HOSPITAL COURSE: Mr. Bautista is an unfortunate 73-year-old male with COPD, CHF, and stage IV colon cancer, receiving chemotherapy by Dr. Grissom. He presented to the ER after falling. His grandson was pushing his wheelchair, and there was a slip and fall, and his grandson landed on his chest. In the ER he was noted to have pulmonary edema and left-sided pneumothorax which was treated with a chest tube, and he was transferred to [facility], as he initially presented to [facility]. Here at [facility], we consulted Surgery, who was following his chest tube, which did appear to resolve. He was also noted to have acute kidney injury on chronic kidney disease on arrival with a creatinine of 2.6. We did go ahead and consult Dr. Colvin for that, and his renal failure did improve greatly with IV fluids. He was in atrial fibrillation/rapid ventricular response on arrival to the ER, and this was improved with beta blockers and calcium channel blockers. His Eliquis was stopped due to the chest trauma. With regard to his metastatic cancer, we did consult Dr. Grissom, who continued to follow throughout his admission. There was nothing really acute with regard to changes in that. His respiratory status did wax and wane, and he ultimately began to develop bilateral pneumonia. A CT of the chest on 11/18 did show bilateral bronchopneumonia with a left pleural effusion and pneumothorax with multiple left rib fractures which were felt to be the culprit of the pneumothorax. He was also noted to be malnourished, for which we started Clinimix. Throughout his admission, we did discuss DO NOT RESUSCITATE status and possible palliative care. The patient was very resistant to this discussion at first, but over time he did understand that he has terminal disease and multiple comorbidities that despite adequate treatment were not getting any better. We did feel that his pneumonia could possibly be secondary to esophageal dysmotility, and we ordered a gastroenterology consult. A swallow study did reveal severe esophageal dysmotility. Aspiration precautions were recommended. We consulted Dr. Lamas for pneumonia bilaterally, and the patient also did develop oral candidiasis, which was treated appropriately. He was placed on Nystatin swish and swallow for the candidiasis. We were able to begin talking to him about end-of-life care, and with the help of palliative care, hematology/oncology, and other subspecialties, the patient was ultimately amenable to the possibility of hospice. He initially wanted to go to rehab, and then decided against it, wanting to go home, and as he has improved, he has ultimately made the decision to go home with hospice. Overall, he is declining, and hospice is appropriate for this patient. He is a DO NOT RESUSCITATE level 1. He is now stable for discharge home. DISCHARGE MEDICATIONS: Omeprazole 40 mg daily, Combivent Respimat inhaler 1 puff every 6 hours as needed, albuterol ProAir HFA as needed, Eliquis 2.5 mg p.o. b.i.d., Icar-C 1 b.i.d., metoprolol 25 mg p.o. b.i.d., folic acid 1 mg daily, multivitamin 1 daily, isosorbide mononitrate 30 mg p.o. daily, Megace 10 mL daily, mirtazapine 15 mg p.o. at bedtime, glipizide 2.5 mg p.o. daily, Augmentin 875 mg p.o. every 12 hours for 7 days, morphine ER 30 mg p.o. every 12, sodium bicarbonate 650 mg p.o. t.i.d., bisacodyl 10 mg OR at bedtime, Cordarone 200 mg p.o. daily, MiraLAX 17 grams b.i.d., morphine 15 mg IR every 2 hours p.r.n. DISCHARGE DIET: Renal, heart healthy. DISCHARGE ACTIVITY: Resume activity as tolerated. DISPOSITION AND OTHER DISCHARGE INSTRUCTIONS: The patient is discharged home with hospice. He is to follow up with Dr. Malik, Dr. Costa, Dr. Agapito Mtz, his PCP, Dr. Lamas, Dr. Hong, Dr. Grissom, Dr. Colvin, and Dr. Stuart, all as directed. All questions were answered. Discharge time was greater than 35 minutes. Dictated by LIZBET Gasca for Edwin Gong MD cc: ILZBET Gasca MD Ashish K. Basu, MD James E. Boyle, MD Joseph L. Randall Leroy F. Harris, MD Reginald D. Gladish, MD Naveen T. Lobo, MD Manish Arora, MD
== END 2018-12-14 18:27 | disposition hospice, home (50) | DRG 199 ==
LOC: P.ED 17:48 → P.ICU 22:47 → SUATTDRO 22:47 → 3S 11-15 16:50 → ICU 11-18 12:40 → 3S 11-25 12:53 → 3N 12-04 17:17
PROVIDERS: ATTEND Internal Medicine
CPT/HCPCS: 71010; 71045; 71250; 74019; 74020; 74220; 76770; 80048; 80053; 80069; 80162; 81001; 82040; 82550; 82553; 82570; 82805; 83735; 83880; 83935; 84100; 84132; 84133; 84145; 84156; 84300; 84439; 84443; 84484; 84540; 85025; 85027; 85610; 85730; 87040; 87070; 87088; 87205; 93005; 93010; 93306; 93308; 94640; 94760; 94761; 96374; 96375; 97110; 97162; 97530; 99285; 99291; A9270; C9113; J0282; J0610; J0692; J0696; J1170; J1630; J1644; J1940; J2020; J2060; J2185; J2270; J2405; J2920; J7030; J7040; J7060; P9047; S0164; S0179